=== PATIENT | female | born 1990 | race Caucasian/White ===

== ENCOUNTER 2018-10-04 14:22 | Inpatient (IN) | payer BC ==
[2018-10-04 14:35] VITALS: BMI 107.6
[2018-10-04 14:47] LABS: BASO # 0.02 K/mm3 (0.0-2.0); BASO % 0.2 % (0.0-3.0); LYMPH % 10.4 % (22.0-35.0); MEAN CELL VOLUME 74.1 fl (80.0-105.0); MEAN CORPUSCULAR HEMOGLOBIN 24.7 pg (25.0-35.0); MEAN CORPUSCULAR HGB CONC 33.3 g/dl (31.0-37.0); MEAN PLATELET VOLUME 9.3 fl (7.0-11.0); MONO # 1.3 (0.1-0.6); MONO % 13.7 % (1.0-6.0); RBC 4.86 10^6/uL (3.5-6.1); RED CELL DISTRIBUTION WIDTH 19.6 % (11.5-14.5); WHITE BLOOD COUNT 9.4 10^3/uL (4.5-11.0)
[2018-10-04 15:02] LABS: ALB/GLOB RATIO 1.2 (1.1-1.8); ALBUMIN 4.7 g/dL (3.0-4.8); ALT/SGPT 11 U/L (7-56); GFR NON-AFRICAN AMERICAN > 60
[2018-10-04 15:03] LABS: ACETAMINOPHEN < 10.0 ug/ml (10.0-20.0); AST/SGOT 31 U/L (14-36); CALCIUM 9.3 mg/dL (8.4-10.5); SALICYLATE < 1 mg/dL (2.0-20.0)
--- NOTE | 2018-10-04 15:11 | ED PDOC ---
Arrival/HPI - General Chief Complaint: Substance Abuse Time Seen by Provider: 10/04/18 14:24 - Critical Care Critical Care Minutes: 60 minutes Narrative Critical Care (Text): Patient required my immediate attention upon arrival due to life threatening illness, required frequent reassessment, complex decision making, multiple specialist conversations. - History of Present Illness Narrative History of Present Illness (Text): 27 y/o F c no PMHx BIBEMS with presumed overdose. Family found patient at home, eyes wide open, not responding verbally, tachycardic and called EMS. Patient was found with empty bottles by her (Benadryl, Levceterizine, Montelukast, Augmentin, Prednisone). Patient arrived to ED with altered mental status and during initial evaluation, had approximately 10 sec seizure which resolved on its own and was then given 2mg Ativan. Full HPI/ROS unobtainable due to patient's critical condition and altered mental status. Past Medical History - Infectious Disease Hx of Infectious Diseases: None - Reproductive Menopause: No - Psychiatric Hx Substance Use: No - Anesthesia Hx Anesthesia: No Hx Anesthesia Reactions: No Hx Malignant Hyperthermia: No Family/Social History Family/Social History: No Known Family HX Smoking Status: Never Smoked Hx Alcohol Use: No Hx Substance Use: No Allergies/Home Meds Allergies/Adverse Reactions: Allergies No Known Allergies Allergy (Verified 03/06/16 19:15) Review of Systems - Review of Systems Systems not reviewed;Unavailable: Acuity of Condition Physical Exam - Physical Exam Narrative Physical Exam (Text): gen nonverbal head nc/at eyes jerking movements ent drooling after seizure, no bleeding or tongue bite neck supple chest no deformity cv tachycardic resp cta b/l abd soft back no deformity extremities no deformity skin flushed neuro nonverbal, 10 second seizure, jerking limb movements Vital Signs Temp Pulse Resp BP Pulse Ox 10/04/18 14:57 142 H 18 140/89 98 10/04/18 14:29 97.8 F 185 H 26 H 97 10/04/18 14:27 97.2 F L 181 H 18 142/69 99 Medical Decision Making ED Course and Treatment: EKG Sinus tachy, 182 bpm, QRS 76ms, QTc 452ms FINDINGS: LUNGS: No active pulmonary disease. PLEURA: No significant pleural effusion identified, no pneumothorax apparent. CARDIOVASCULAR: No aortic atherosclerotic calcification present. Normal cardiac size. No pulmonary vascular congestion. OSSEOUS STRUCTURES: No significant abnormalities. VISUALIZED UPPER ABDOMEN: Normal. OTHER FINDINGS: None. IMPRESSION: No active disease. Patient with 10 second seizure, Ativan 2mg administered and 3 L IVF total. Patient's HR improved from 180s to 117. No additional seizures in ED. QRS remained narrow as HR slowed. ICU consulted, accepted to ICU. Dr. Murphy accepts patient to hospitalist service. Discussed entire case with Poison Control who agree with management. They recommend continued benzos as needed for seizure/agitation control and did not recommend physostigmine at this time. Patient maintaining airway, pulse oximetry 100% on room air. - Lab Interpretations Lab Results: AST 31 U/L (14-36) 10/04/18 14:30 ALT 11 U/L (7-56) 10/04/18 14:30 Total Protein 8.8 g/dL (5.8-8.3) H 10/04/18 14:30 Albumin 4.7 g/dL (3.0-4.8) 10/04/18 14:30 Globulin 4.0 gm/dL 10/04/18 14:30 Albumin/Globulin Ratio 1.2 (1.1-1.8) 10/04/18 14:30 - RAD Interpretation Radiology Orders: 10/04/18 14:41 CHEST PORTABLE [RAD] Stat Disposition/Present on Arrival - Present on Arrival Any Indicators Present on Arrival: No History of DVT/PE: No History of Uncontrolled Diabetes: No Urinary Catheter: No History of Decub. Ulcer: No History Surgical Site Infection Following: None - Disposition Have Diagnosis and Disposition been Completed?: Yes Diagnosis: Diphenhydramine overdose, Anticholinergic drug overdose, Seizure Disposition: HOSPITALIZED Disposition Time: 15:30 Patient Plan: Admission, ICU Patient Problems: Current Active Problems Problem Status Onset Anticholinergic drug overdose Acute Diphenhydramine overdose Acute Condition: CRITICAL
[2018-10-04 15:12] LABS: URINE BILIRUBIN SMALL (NEGATIVE); URINE BLOOD NEGATIVE (NEGATIVE); URINE GLUCOSE (UA) NEGATIVE (NEGATIVE); URINE LEUKOCYTE ESTERASE NEGATIVE Leu/uL (NEGATIVE); URINE PROTEIN >=300 mg/dL (<30 mg/dL)
[2018-10-04 15:14] LABS: URINE APPEARANCE CLEAR (CLEAR); URINE COLOR YELLOW (YELLOW)
[2018-10-04 15:15] LABS: HCG,QUALITATIVE URINE NEGATIVE (NEGATIVE)
[2018-10-04 15:23] LABS: BENZODIAZEPINES, UR NEGATIVE (NEGATIVE); PHENCYCLIDINE, UR NEGATIVE (NEGATIVE)
[2018-10-04 15:27] LABS: ARTERIAL BLOOD GAS HCO3 13.5 mmol/L (21-28); ARTERIAL BLOOD GAS O2 SAT 98.4 % (95-98); ARTERIAL BLOOD GAS PCO2 28 mm/Hg (35-45); ARTERIAL BLOOD GAS PH 7.29 (7.35-7.45); ARTERIAL BLOOD GAS TCO2 14.4 mmol.L (22-28)
[2018-10-04 15:28] LABS: URINE BACTERIA FEW /hpf; URINE RBC 0 - 2 /hpf (0-2); URINE WBC 0 - 2 /hpf (0-6)
[2018-10-04 15:31] LABS: BARBITURATES, UR NEGATIVE (NEGATIVE); OPIATES, UR NEGATIVE (NEGATIVE)
--- NOTE | 2018-10-04 15:44 | RAD ---
Date of service: 10/04/2018 HISTORY: benadryl overdose COMPARISON: No prior. TECHNIQUE: 1 view obtained. FINDINGS: LUNGS: No active pulmonary disease. PLEURA: No significant pleural effusion identified, no pneumothorax apparent. CARDIOVASCULAR: No aortic atherosclerotic calcification present. Normal cardiac size. No pulmonary vascular congestion. OSSEOUS STRUCTURES: No significant abnormalities. VISUALIZED UPPER ABDOMEN: Normal. OTHER FINDINGS: None. IMPRESSION: No active disease.
[2018-10-04 15:46] LABS: BLOOD UREA NITROGEN 7 mg/dL (7-21)
[2018-10-04] MEDS ORDERED: Sodium Chloride 0.9% 3,000 ML IV STA (16:01)
--- NOTE | 2018-10-04 16:12 | CP.PCM.CON ---
<Govind Celestin - Last Filed: 10/04/18 17:05> History of Present Illness - History of Present Illness History of Present Illness: ICU consult note for Dr Hawk Mrs Romero is a 27 year old female with no significant PMHx who was found altered at home by her 2/2 to an overdose of multiple medications. stated he found her in her bed non-responsive to verbal or tactile stimuli with her eyes wide open as if she was hallucinating. He found the medication drawer open with empty pill bottles which all previously contained pills (benadryl, Levceterizine, Montelukast, Augmentin, Prednisone). The bottle that contained the most pills was the benadryl. Patient appeared normal 90 mins prior to finding her altered. He stated she had been "going through some stuff lately" but is surprised by her actions as it is out of her character - she has never attempted suicide in the past. In the ED she had a 10 second seizure which resolved on it's own and was given ativan 2mg ivp thereafter. The history was collected by her Jose A, phone: [phone]. PMHx: none PSHx: none Home Meds: none Allergies: NKA SocialHx: never smoked, social alcohol use, no illicits, lives at home with and child FamHx: no fam hx PMD: [place] Review of Systems - Review of Systems Systems not reviewed;Unavailable: Altered Mental Status Past Patient History - Infectious Disease Hx of Infectious Diseases: None - Past Social History Smoking Status: Never Smoked - CARDIAC Hx Cardiac Disorders: No - HEMATOLOGICAL/ONCOLOGICAL Hx Blood Disorders: No - INTEGUMENTARY Hx Dermatological Problems: No - PSYCHIATRIC Hx Substance Use: No - SURGICAL HISTORY Hx Surgeries: No - ANESTHESIA Hx Anesthesia: No Hx Anesthesia Reactions: No Hx Malignant Hyperthermia: No Meds Allergies/Adverse Reactions: Allergies Allergy/AdvReac Type Severity Reaction Status Date / Time No Known Allergies Allergy Verified 03/06/16 19:15 - Medications Medications: Current Medications Sodium Chloride (Sodium Chloride 0.9%) 3,000 mls @ 999 mls/hr IV .Q3H1M STA Stop: 10/04/18 19:01 Physical Exam - Constitutional Appears: In Acute Distress - Head Exam Head Exam: ATRAUMATIC, NORMAL INSPECTION - Eye Exam Eye Exam: PERRL. absent: Conjunctival injection, Periorbital swelling, Scleral icterus Pupil Exam: NORMAL ACCOMODATION - ENT Exam ENT Exam: Mucous Membranes Dry - Neck Exam Neck exam: Negative for: Lymphadenopathy - Respiratory Exam Respiratory Exam: Decreased Breath Sounds. absent: Rales, Rhonchi, Wheezes, Stridor - Cardiovascular Exam Cardiovascular Exam: Tachycardia, REGULAR RHYTHM, +S1, +S2. absent: JVD, Systolic Murmur - GI/Abdominal Exam GI & Abdominal Exam: Hypoactive Bowel Sounds, Soft. absent: Distended, Firm - Extremities Exam Extremities exam: Positive for: normal capillary refill, normal inspection, pedal pulses present. Negative for: pedal edema - Neurological Exam Neurological exam: Altered - Skin Skin Exam: Dry, Intact, Normal Color, Warm Results - Vital Signs Recent Vital Signs: Last Vital Signs Temp 99 F 10/04/18 15:11 Pulse 118 H 10/04/18 16:00 Resp 22 10/04/18 16:00 BP 139/74 10/04/18 16:00 Pulse Ox 99 10/04/18 16:00 - Labs Result Diagrams: 10/04/18 14:30 10/04/18 14:30 Labs: Laboratory Results - last 24 hr 10/04/18 10/04/18 10/04/18 14:30 14:30 14:30 WBC 9.4 RBC 4.86 Hgb 12.0 Hct 36.0 MCV 74.1 L MCH 24.7 L MCHC 33.3 RDW 19.6 H Plt Count 292 MPV 9.3 Neut % (Auto) 75.7 H Lymph % (Auto) 10.4 L [place] % (Auto) 13.7 H Eos % (Auto) 0.0 L Baso % (Auto) 0.2 Lymph # (Auto) 1.0 L Randolph # (Auto) 1.3 H Eos # (Auto) 0.0 Baso # (Auto) 0.02 Absolute Neuts (auto) 7.11 H pCO2 pO2 HCO3 ABG pH ABG Total CO2 ABG O2 Saturation ABG Base Excess ABG Potassium Glucose Lactate FiO2 Crit Value Called To Crit Value Called By Blood Gas Notified Time Sodium 144 Potassium 4.0 Chloride 108 H Carbon Dioxide 18 L Anion Gap 23 H BUN 7 Creatinine 0.5 L Est GFR ( Amer) > 60 Est GFR (Non-Af Amer) > 60 Random Glucose 112 H Calcium 9.3 Magnesium 1.8 Total Bilirubin 1.0 AST 31 ALT 11 Alkaline Phosphatase 72 Total Creatine Kinase 76 Total Protein 8.8 H Albumin 4.7 Globulin 4.0 Albumin/Globulin Ratio 1.2 Arterial Blood Potassium Urine Color Urine Appearance Urine pH Ur Specific [place] Urine Protein Urine Glucose (UA) Urine Ketones Urine Blood Urine Nitrate Urine Bilirubin Urine Urobilinogen Ur Leukocyte Esterase Urine RBC Urine WBC Ur Epithelial Cells Urine Bacteria Urine Other Urine HCG, Qual Salicylates < 1 L Urine Opiates Screen Urine Methadone Screen Acetaminophen < 10.0 L Ur Barbiturates Screen Ur Phencyclidine Scrn Ur Amphetamines Screen U Benzodiazepines Scrn U Oth Cocaine Metabols U Cannabinoids Screen Alcohol, Quantitative 10/04/18 10/04/18 10/04/18 14:30 14:45 14:45 WBC RBC Hgb Hct MCV MCH MCHC RDW Plt Count MPV Neut % (Auto) Lymph % (Auto) [place] % (Auto) Eos % (Auto) Baso % (Auto) Lymph # (Auto) Randolph # (Auto) Eos # (Auto) Baso # (Auto) Absolute Neuts (auto) pCO2 pO2 HCO3 ABG pH ABG Total CO2 ABG O2 Saturation ABG Base Excess ABG Potassium Glucose Lactate FiO2 Crit Value Called To Crit Value Called By Blood Gas Notified Time Sodium Potassium Chloride Carbon Dioxide Anion Gap BUN Creatinine Est GFR ( Amer) Est GFR (Non-Af Amer) Random Glucose Calcium Magnesium Total Bilirubin AST ALT Alkaline Phosphatase Total Creatine Kinase Total Protein Albumin Globulin Albumin/Globulin Ratio Arterial Blood Potassium Urine Color Yellow Urine Appearance Clear Urine pH 7.0 Ur Specific [place] >= 1.030 Urine Protein >=300 H Urine Glucose (UA) Negative Urine Ketones 15 H Urine Blood Negative Urine Nitrate Negative Urine Bilirubin Small H Urine Urobilinogen 4.0 H Ur Leukocyte Esterase Negative Urine RBC 0 - 2 Urine WBC 0 - 2 Ur Epithelial Cells 1 - 3 Urine Bacteria Few Urine Other Mucus Urine HCG, Qual Negative Salicylates Urine Opiates Screen Negative Urine Methadone Screen Negative Acetaminophen Ur Barbiturates Screen Negative Ur Phencyclidine Scrn Negative Ur Amphetamines Screen Negative U Benzodiazepines Scrn Negative U Oth Cocaine Metabols Negative U Cannabinoids Screen Negative Alcohol, Quantitative < 10 10/04/18 15:05 WBC RBC Hgb Hct MCV MCH MCHC RDW Plt Count MPV Neut % (Auto) Lymph % (Auto) [place] % (Auto) Eos % (Auto) Baso % (Auto) Lymph # (Auto) [place] # (Auto) Eos # (Auto) Baso # (Auto) Absolute Neuts (auto) pCO2 28 L pO2 96.0 HCO3 13.5 L ABG pH 7.29 L ABG Total CO2 14.4 L ABG O2 Saturation 98.4 H ABG Base Excess -11.6 L ABG Potassium 2.7 L Glucose 101 Lactate 6.1 H* FiO2 21.0 Crit Value Called To Tasha awad Crit Value Called By Meaghan hernandez Blood Gas Notified Time 1527 Sodium 141.0 Potassium Chloride 113.0 H Carbon Dioxide Anion Gap BUN Creatinine Est GFR ( Amer) Est GFR (Non-Af Amer) Random Glucose Calcium Magnesium Total Bilirubin AST ALT Alkaline Phosphatase Total Creatine Kinase Total Protein Albumin Globulin Albumin/Globulin Ratio Arterial Blood Potassium 2.7 L Urine Color Urine Appearance Urine pH Ur Specific [place] Urine Protein Urine Glucose (UA) Urine Ketones Urine Blood Urine Nitrate Urine Bilirubin Urine Urobilinogen Ur Leukocyte Esterase Urine RBC Urine WBC Ur Epithelial Cells Urine Bacteria Urine Other Urine HCG, Qual Salicylates Urine Opiates Screen Urine Methadone Screen Acetaminophen Ur Barbiturates Screen Ur Phencyclidine Scrn Ur Amphetamines Screen U Benzodiazepines Scrn U Oth Cocaine Metabols U Cannabinoids Screen Alcohol, Quantitative Assessment & Plan - Assessment and Plan (Free Text) Plan: Mrs Romero is a 27 year old female with no significant PMHx who was found altered at home by her 2/2 to an overdose of multiple medications (benadryl, Levceterizine, Montelukast, Augmentin, Prednisone). The most # of pills taken were benadryl. Renal: #High Anion-Gap Metabolic Acidosis, #Lactic Acidosis - initial anion gap: 18, elevated 2/2 high lactate - initial lactate 6.1, trend lactate - aggressive fluid hydration with 3L bolus NS - 1/2NS with 75meq bicarb @ 150 cc/hr - trend CPK Cardiovascular: #Sinus Tachycardia, improved - tachycardia 2/2 anticholinergic effects of benadryl - will monitor for wide complex tachycardia - BP remains normal at this time Neuro: #Toxic Metabolic Encephalopathy 2/2 Overdose, #Seizure Activity - neurology consulted, Dr Goode - f/u CT head - ativan 2mg q2h prn for seizure activity - neurochecks q2h Respiratory: #Tachypnea - 2/2 respiratory compensation - head of bed to 30 degrees, aspiration precautions - currently saturating well on NC Psychiatry: #Suicide Attempt - per , no psych hx or hx of suicide attempt - UDS negative - poison control contacted by ED, recommended supportive care and recommended against physiostigmine at this time - 1:1 sitter - psychiatry consulted, Dr Richard ID: no active issues PPx: no GI or DVT prophylaxis indicated at this time Seen and discussed with Dr Hawk <Urbano Hawk - Last Filed: 10/04/18 17:45> Meds - Medications Medications: Current Medications Sodium Chloride (Sodium Chloride 0.9%) 3,000 mls @ 999 mls/hr IV .Q3H1M STA Stop: 10/04/18 19:01 Last Admin: 10/04/18 14:30 Dose: 999 mls/hr Sodium Bicarbonate 75 meq/ (Sodium Chloride) 1,075 mls @ 150 mls/hr IV .Q7H10M TITI Lorazepam (Ativan) 2 mg IVP Q2H PRN; Protocol PRN Reason: Seizure activity Pantoprazole Sodium (Protonix Inj) 40 mg IVP DAILY TITI Results - Vital Signs Recent Vital Signs: Last Vital Signs Temp 99 F 10/04/18 15:11 Pulse 118 H 10/04/18 16:15 Resp 16 10/04/18 16:34 BP 134/88 10/04/18 16:15 Pulse Ox 99 10/04/18 16:15 - Labs Result Diagrams: 10/04/18 14:30 10/04/18 14:30 Labs: Laboratory Results - last 24 hr 10/04/18 10/04/18 10/04/18 14:30 14:30 14:30 WBC 9.4 RBC 4.86 Hgb 12.0 Hct 36.0 MCV 74.1 L MCH 24.7 L MCHC 33.3 RDW 19.6 H Plt Count 292 MPV 9.3 Neut % (Auto) 75.7 H Lymph % (Auto) 10.4 L [place] % (Auto) 13.7 H Eos % (Auto) 0.0 L Baso % (Auto) 0.2 Lymph # (Auto) 1.0 L [place] # (Auto) 1.3 H Eos # (Auto) 0.0 Baso # (Auto) 0.02 Absolute Neuts (auto) 7.11 H pCO2 pO2 HCO3 ABG pH ABG Total CO2 ABG O2 Saturation ABG Base Excess ABG Potassium Glucose Lactate FiO2 Crit Value Called To Crit Value Called By Blood Gas Notified Time Sodium 144 Potassium 4.0 Chloride 108 H Carbon Dioxide 18 L Anion Gap 23 H BUN 7 Creatinine 0.5 L Est GFR ( Amer) > 60 Est GFR (Non-Af Amer) > 60 Random Glucose 112 H Calcium 9.3 Magnesium 1.8 Total Bilirubin 1.0 AST 31 ALT 11 Alkaline Phosphatase 72 Total Creatine Kinase 76 Total Protein 8.8 H Albumin 4.7 Globulin 4.0 Albumin/Globulin Ratio 1.2 Arterial Blood Potassium Urine Color Urine Appearance Urine pH Ur Specific [place] Urine Protein Urine Glucose (UA) Urine Ketones Urine Blood Urine Nitrate Urine Bilirubin Urine Urobilinogen Ur Leukocyte Esterase Urine RBC Urine WBC Ur Epithelial Cells Urine Bacteria Urine Other Urine HCG, Qual Salicylates < 1 L Urine Opiates Screen Urine Methadone Screen Acetaminophen < 10.0 L Ur Barbiturates Screen Ur Phencyclidine Scrn Ur Amphetamines Screen U Benzodiazepines Scrn U Oth Cocaine Metabols U Cannabinoids Screen Alcohol, Quantitative 10/04/18 10/04/18 10/04/18 14:30 14:45 14:45 WBC RBC Hgb Hct MCV MCH MCHC RDW Plt Count MPV Neut % (Auto) Lymph % (Auto) [place] % (Auto) Eos % (Auto) Baso % (Auto) Lymph # (Auto) [place] # (Auto) Eos # (Auto) Baso # (Auto) Absolute Neuts (auto) pCO2 pO2 HCO3 ABG pH ABG Total CO2 ABG O2 Saturation ABG Base Excess ABG Potassium Glucose Lactate FiO2 Crit Value Called To Crit Value Called By Blood Gas Notified Time Sodium Potassium Chloride Carbon Dioxide Anion Gap BUN Creatinine Est GFR ( Amer) Est GFR (Non-Af Amer) Random Glucose Calcium Magnesium Total Bilirubin AST ALT Alkaline Phosphatase Total Creatine Kinase Total Protein Albumin Globulin Albumin/Globulin Ratio Arterial Blood Potassium Urine Color Yellow Urine Appearance Clear Urine pH 7.0 Ur Specific [place] >= 1.030 Urine Protein >=300 H Urine Glucose (UA) Negative Urine Ketones 15 H Urine Blood Negative Urine Nitrate Negative Urine Bilirubin Small H Urine Urobilinogen 4.0 H Ur Leukocyte Esterase Negative Urine RBC 0 - 2 Urine WBC 0 - 2 Ur Epithelial Cells 1 - 3 Urine Bacteria Few Urine Other Mucus Urine HCG, Qual Negative Salicylates Urine Opiates Screen Negative Urine Methadone Screen Negative Acetaminophen Ur Barbiturates Screen Negative Ur Phencyclidine Scrn Negative Ur Amphetamines Screen Negative U Benzodiazepines Scrn Negative U Oth Cocaine Metabols Negative U Cannabinoids Screen Negative Alcohol, Quantitative < 10 10/04/18 15:05 WBC RBC Hgb Hct MCV MCH MCHC RDW Plt Count MPV Neut % (Auto) Lymph % (Auto) [place] % (Auto) Eos % (Auto) Baso % (Auto) Lymph # (Auto) [place] # (Auto) Eos # (Auto) Baso # (Auto) Absolute Neuts (auto) pCO2 28 L pO2 96.0 HCO3 13.5 L ABG pH 7.29 L ABG Total CO2 14.4 L ABG O2 Saturation 98.4 H ABG Base Excess -11.6 L ABG Potassium 2.7 L Glucose 101 Lactate 6.1 H* FiO2 21.0 Crit Value Called To Tasha awad Crit Value Called By Meaghan hernandez Blood Gas Notified Time 1527 Sodium 141.0 Potassium Chloride 113.0 H Carbon Dioxide Anion Gap BUN Creatinine Est GFR ( Amer) Est GFR (Non-Af Amer) Random Glucose Calcium Magnesium Total Bilirubin AST ALT Alkaline Phosphatase Total Creatine Kinase Total Protein Albumin Globulin Albumin/Globulin Ratio Arterial Blood Potassium 2.7 L Urine Color Urine Appearance Urine pH Ur Specific [place] Urine Protein Urine Glucose (UA) Urine Ketones Urine Blood Urine Nitrate Urine Bilirubin Urine Urobilinogen Ur Leukocyte Esterase Urine RBC Urine WBC Ur Epithelial Cells Urine Bacteria Urine Other Urine HCG, Qual Salicylates Urine Opiates Screen Urine Methadone Screen Acetaminophen Ur Barbiturates Screen Ur Phencyclidine Scrn Ur Amphetamines Screen U Benzodiazepines Scrn U Oth Cocaine Metabols U Cannabinoids Screen Alcohol, Quantitative Assessment & Plan - Assessment and Plan (Free Text) Plan: I saw and examined the patients on rounds with the resident, agree with note with following additions/exceptions: Patient is 27yo female with PMHx of recent depression, unclear exacerbating psychosocial factors at home, was found down on her bed, altered by her , with empty pill bottles of benadryl, Levceterizine, Montelukast, Augmentin, Prednisone, unknown dosages or tablet amount. Jose A/HCP, reports that he last saw his at 11AM, and when he returned around 1pm, he found her minimally responsive. reports no prior overdoses. Pt was initally tachycardic ST 180s, given 3L NS bolus, and had witnessed 10 second seziure, given Ativan IV CTH negative On exam, afebrile, HD stable, comfortable opens eyes, does not follow commands, protecting airway, pulse ox on RA 98% EKG with normal QTc Poison control contacted, recs appreciated, will follow Tylenol, ASA levels negative, LFTs wnl, Cr wnl Multidrug overdose Depression Metabolic acidosis Dehydration Tachycardia Seizure DPH overdose Recommend: - cont with supp o2, duonebs PRN, monitor resp status closely - Panculture, UCx, BCx, Procal - Obtain ECHO - IVF, 1/2NS with 75meq NaBicarb - I/Os - monitor LFTs, Cr, Q6hr BMP - VEEG - Neuro eval - Psych Eval - BZD PRN - follow up with poison control - NPO - 1:1 obs - GI ppx - DVT ppx - Monitor in MICU Critical care time 40 minutes
--- NOTE | 2018-10-04 16:58 | CP.PCM.HP ---
<Raphael Krishnan - Last Filed: 10/04/18 17:14> History of Present Illness - History of Present Illness History of Present Illness: Raphael Krishnan, PGY-1, Internal Medicine History and Physical for Dr. Hinkle 27 year old female with no relevant past medical history presents status post multidrug overdose. At bedside, patient was not verbally responsive. provided much of the history. He reported that his had been undergoing personal and professional hardships but did not want to elaborate on these hardships. Today, and son were going to [employer], but did not want to go. and son left at 11:30 AM with patient healthy and AAOx3 and return at 13:30 to see patient on bed with eyes wide open, not responding verbally, and tachycardia and called EMS. Initially, family assumed, patient was having stroke or cardiac trouble. However, son found multiple empty bottles in medical cabinet (benadryl, levocetirizine 5 mg, montelukast 10 mg, augmentin 500 mg, prednisone 10 mg). EMS was called and patient arrived at emergency department with 10 second seizure which self-resolved and was then given 2 mg of ativan. 12-point ROS was unattainable due to patient's current mental status. ED called poison control who recommended benzodiazepines as necessary. Physi ostigmine not recommended at this time. PMH: unremarkable PSH: denies FMHx: non-contributary SHx: social alcohol, denies tobacco, recreational drugs Allergies: NKDA PMD: Dr. Sawant Ins: BCBS [place] of [place] Pharm: none Present on Admission - Present on Admission Any Indicators Present on Admission: No Review of Systems - Review of Systems Systems not reviewed;Unavailable: Intoxicated Past Patient History - Infectious Disease Hx of Infectious Diseases: None - Past Social History Smoking Status: Never Smoked - CARDIAC Hx Cardiac Disorders: No - PULMONARY Hx Respiratory Disorders: No - NEUROLOGICAL Hx Neurological Disorder: No - HEENT Hx HEENT Problems: No - HEMATOLOGICAL/ONCOLOGICAL Hx Blood Disorders: No - INTEGUMENTARY Hx Dermatological Problems: No - MUSCULOSKELETAL/RHEUMATOLOGICAL Hx Falls: No - PSYCHIATRIC Hx Substance Use: No - SURGICAL HISTORY Hx Surgeries: No - ANESTHESIA Hx Anesthesia: No Hx Anesthesia Reactions: No Hx Malignant Hyperthermia: No Meds Allergies/Adverse Reactions: Allergies Allergy/AdvReac Type Severity Reaction Status Date / Time No Known Allergies Allergy Verified 03/06/16 19:15 Physical Exam - Constitutional Appears: In Acute Distress, Agitated, Confused - Head Exam Head Exam: ATRAUMATIC, NORMAL INSPECTION, NORMOCEPHALIC - Eye Exam Eye Exam: EOMI Pupil Exam: Mydriatic, NORMAL ACCOMODATION - ENT Exam ENT Exam: Mucous Membranes Moist - Neck Exam Neck exam: Positive for: Normal Inspection - Respiratory Exam Respiratory Exam: Clear to Auscultation Bilateral, NORMAL BREATHING PATTERN - Cardiovascular Exam Cardiovascular Exam: Tachycardia, REGULAR RHYTHM, +S1, +S2. absent: Clicks, Gallop, Rubs - GI/Abdominal Exam GI & Abdominal Exam: Hypoactive Bowel Sounds, Soft. absent: Distended, Firm, Guarding, Tenderness - Extremities Exam Extremities exam: Positive for: full ROM, normal inspection. Negative for: pedal edema - Neurological Exam Neurological exam: Altered Additional comments: very limited due to mental status - Expanded Neurological Exam Expanded Coma Scale Eye Opening: SPONTANEOUS Coma Scale Motor Response: Localizes to Pain Coma Scale Verbal: None Coma Scale Total: 10 - Skin Skin Exam: Dry, Intact, Normal Color Results - Vital Signs Recent Vital Signs: Last Vital Signs Temp 99 F 10/04/18 15:11 Pulse 118 H 10/04/18 16:15 Resp 16 10/04/18 16:34 BP 134/88 10/04/18 16:15 Pulse Ox 99 10/04/18 16:15 - Labs Result Diagrams: 10/04/18 14:30 10/04/18 14:30 Labs: Laboratory Results - last 24 hr 10/04/18 10/04/18 10/04/18 14:30 14:30 14:30 WBC 9.4 RBC 4.86 Hgb 12.0 Hct 36.0 MCV 74.1 L MCH 24.7 L MCHC 33.3 RDW 19.6 H Plt Count 292 MPV 9.3 Neut % (Auto) 75.7 H Lymph % (Auto) 10.4 L [place] % (Auto) 13.7 H Eos % (Auto) 0.0 L Baso % (Auto) 0.2 Lymph # (Auto) 1.0 L [place] # (Auto) 1.3 H Eos # (Auto) 0.0 Baso # (Auto) 0.02 Absolute Neuts (auto) 7.11 H pCO2 pO2 HCO3 ABG pH ABG Total CO2 ABG O2 Saturation ABG Base Excess ABG Potassium Glucose Lactate FiO2 Crit Value Called To Crit Value Called By Blood Gas Notified Time Sodium 144 Potassium 4.0 Chloride 108 H Carbon Dioxide 18 L Anion Gap 23 H BUN 7 Creatinine 0.5 L Est GFR ( Amer) > 60 Est GFR (Non-Af Amer) > 60 Random Glucose 112 H Calcium 9.3 Magnesium 1.8 Total Bilirubin 1.0 AST 31 ALT 11 Alkaline Phosphatase 72 Total Creatine Kinase 76 Total Protein 8.8 H Albumin 4.7 Globulin 4.0 Albumin/Globulin Ratio 1.2 Arterial Blood Potassium Urine Color Urine Appearance Urine pH Ur Specific [place] Urine Protein Urine Glucose (UA) Urine Ketones Urine Blood Urine Nitrate Urine Bilirubin Urine Urobilinogen Ur Leukocyte Esterase Urine RBC Urine WBC Ur Epithelial Cells Urine Bacteria Urine Other Urine HCG, Qual Salicylates < 1 L Urine Opiates Screen Urine Methadone Screen Acetaminophen < 10.0 L Ur Barbiturates Screen Ur Phencyclidine Scrn Ur Amphetamines Screen U Benzodiazepines Scrn U Oth Cocaine Metabols U Cannabinoids Screen Alcohol, Quantitative 10/04/18 10/04/18 10/04/18 14:30 14:45 14:45 WBC RBC Hgb Hct MCV MCH MCHC RDW Plt Count MPV Neut % (Auto) Lymph % (Auto) [place] % (Auto) Eos % (Auto) Baso % (Auto) Lymph # (Auto) [place] # (Auto) Eos # (Auto) Baso # (Auto) Absolute Neuts (auto) pCO2 pO2 HCO3 ABG pH ABG Total CO2 ABG O2 Saturation ABG Base Excess ABG Potassium Glucose Lactate FiO2 Crit Value Called To Crit Value Called By Blood Gas Notified Time Sodium Potassium Chloride Carbon Dioxide Anion Gap BUN Creatinine Est GFR ( Amer) Est GFR (Non-Af Amer) Random Glucose Calcium Magnesium Total Bilirubin AST ALT Alkaline Phosphatase Total Creatine Kinase Total Protein Albumin Globulin Albumin/Globulin Ratio Arterial Blood Potassium Urine Color Yellow Urine Appearance Clear Urine pH 7.0 Ur Specific [place] >= 1.030 Urine Protein >=300 H Urine Glucose (UA) Negative Urine Ketones 15 H Urine Blood Negative Urine Nitrate Negative Urine Bilirubin Small H Urine Urobilinogen 4.0 H Ur Leukocyte Esterase Negative Urine RBC 0 - 2 Urine WBC 0 - 2 Ur Epithelial Cells 1 - 3 Urine Bacteria Few Urine Other Mucus Urine HCG, Qual Negative Salicylates Urine Opiates Screen Negative Urine Methadone Screen Negative Acetaminophen Ur Barbiturates Screen Negative Ur Phencyclidine Scrn Negative Ur Amphetamines Screen Negative U Benzodiazepines Scrn Negative U Oth Cocaine Metabols Negative U Cannabinoids Screen Negative Alcohol, Quantitative < 10 10/04/18 15:05 WBC RBC Hgb Hct MCV MCH MCHC RDW Plt Count MPV Neut % (Auto) Lymph % (Auto) [place] % (Auto) Eos % (Auto) Baso % (Auto) Lymph # (Auto) [place] # (Auto) Eos # (Auto) Baso # (Auto) Absolute Neuts (auto) pCO2 28 L pO2 96.0 HCO3 13.5 L ABG pH 7.29 L ABG Total CO2 14.4 L ABG O2 Saturation 98.4 H ABG Base Excess -11.6 L ABG Potassium 2.7 L Glucose 101 Lactate 6.1 H* FiO2 21.0 Crit Value Called To Tasha awad Crit Value Called By Meaghan hernandez Blood Gas Notified Time 1527 Sodium 141.0 Potassium Chloride 113.0 H Carbon Dioxide Anion Gap BUN Creatinine Est GFR ( Amer) Est GFR (Non-Af Amer) Random Glucose Calcium Magnesium Total Bilirubin AST ALT Alkaline Phosphatase Total Creatine Kinase Total Protein Albumin Globulin Albumin/Globulin Ratio Arterial Blood Potassium 2.7 L Urine Color Urine Appearance Urine pH Ur Specific [place] Urine Protein Urine Glucose (UA) Urine Ketones Urine Blood Urine Nitrate Urine Bilirubin Urine Urobilinogen Ur Leukocyte Esterase Urine RBC Urine WBC Ur Epithelial Cells Urine Bacteria Urine Other Urine HCG, Qual Salicylates Urine Opiates Screen Urine Methadone Screen Acetaminophen Ur Barbiturates Screen Ur Phencyclidine Scrn Ur Amphetamines Screen U Benzodiazepines Scrn U Oth Cocaine Metabols U Cannabinoids Screen Alcohol, Quantitative Assessment & Plan - Assessment and Plan (Free Text) Assessment: 27 year old female with no relevant past medical history presented status post multidrug overdose Plan: Polypharmacy -Patient likely consumed benadryl, prednisone 10 mg, montelukast 10 mg, augmentin 500 mg, levocetirizine 5 mg -Head CT: no acute intracranial pathology -UDS: negative -Tylenol: negative -Alcohol: negative -CK: unremarkable -Status post 3 L of IV fluids -Started 1/2 NS with 3 Amp of bicarb -Start ativan 2 mg Q2 PRN for seizures -Will obtain echocardiogram due to benadryl overdose -Will check CMP Q4 for electrolyte abnormalities and check EKG in the AM for reevaluation of EKG findings -Elevate head of bed -Aspiration precautions -Neurocheck PRN -1:1 sitter Status post seizure -Likely 2/2 to polypharmacy -Follow up EEG -Head CT: no acute intracranial pathology -CK unremarkable, thus unlikely rhabdomyolysis status post seizure -Lactate elevated at 6 and bicarbonate reduced at 18 likely 2/2 to hypoxia during seizure -Follow up repeat ABG at 19:00 -Start ativan 2 mg Q2 PRN for seizures -Elevate head of bed -Aspiration precautions -Neurocheck PRN -1:1 sitter -Dr. Goode, Neurology, consulted for further recommendations. Depression -Patient likely attempted suicide -Dr. Richard, Psychiatry, consulted for further recommendations. GI prophylaxis: protonix DVT prophylaxis: SCD Patient plan discussed with Dr. Hinkle - Date & Time Date: 10/04/18 Time: 17:01 <Kasandra Hinkle - Last Filed: 10/05/18 14:11> Results - Vital Signs Recent Vital Signs: Last Vital Signs Temp 98.4 F 10/04/18 16:29 Pulse 118 H 10/05/18 03:53 Resp 16 10/04/18 16:34 BP 134/88 10/04/18 16:15 Pulse Ox 99 10/04/18 16:15 - Labs Result Diagrams: 10/05/18 05:20 10/05/18 05:20 Labs: Laboratory Results - last 24 hr 10/04/18 10/04/18 10/04/18 14:30 14:30 14:30 WBC 9.4 RBC 4.86 Hgb 12.0 Hct 36.0 MCV 74.1 L MCH 24.7 L MCHC 33.3 RDW 19.6 H Plt Count 292 MPV 9.3 Neut % (Auto) 75.7 H Lymph % (Auto) 10.4 L [place] % (Auto) 13.7 H Eos % (Auto) 0.0 L Baso % (Auto) 0.2 Lymph # (Auto) 1.0 L [place] # (Auto) 1.3 H Eos # (Auto) 0.0 Baso # (Auto) 0.02 Absolute Neuts (auto) 7.11 H pCO2 pO2 HCO3 ABG pH ABG Total CO2 ABG O2 Saturation ABG Base Excess ABG Potassium VBG pH VBG pCO2 VBG HCO3 VBG Total CO2 VBG O2 Sat (Calc) VBG Base Excess VBG Potassium Glucose Lactate FiO2 Crit Value Called To Crit Value Called By Blood Gas Notified Time Sodium 144 Potassium 4.0 Chloride 108 H Carbon Dioxide 18 L Anion Gap 23 H BUN 7 Creatinine 0.5 L Est GFR ( Amer) > 60 Est GFR (Non-Af Amer) > 60 POC Glucose (mg/dL) Random Glucose 112 H Calcium 9.3 Phosphorus 3.2 Magnesium 1.8 Iron TIBC % Saturation Ferritin Total Bilirubin 1.0 AST 31 ALT 11 Alkaline Phosphatase 72 Total Creatine Kinase 76 Total Protein 8.8 H Albumin 4.7 Globulin 4.0 Albumin/Globulin Ratio 1.2 Arterial Blood Potassium Venous Blood Potassium Urine Color Urine Appearance Urine pH Ur Specific [place] Urine Protein Urine Glucose (UA) Urine Ketones Urine Blood Urine Nitrate Urine Bilirubin Urine Urobilinogen Ur Leukocyte Esterase Urine RBC Urine WBC Ur Epithelial Cells Urine Bacteria Urine Other Urine HCG, Qual Salicylates < 1 L Urine Opiates Screen Urine Methadone Screen Acetaminophen < 10.0 L Ur Barbiturates Screen Ur Phencyclidine Scrn Ur Amphetamines Screen U Benzodiazepines Scrn U Oth Cocaine Metabols U Cannabinoids Screen Alcohol, Quantitative 10/04/18 10/04/18 10/04/18 14:30 14:45 14:45 WBC RBC Hgb Hct MCV MCH MCHC RDW Plt Count MPV Neut % (Auto) Lymph % (Auto) [place] % (Auto) Eos % (Auto) Baso % (Auto) Lymph # (Auto) [place] # (Auto) Eos # (Auto) Baso # (Auto) Absolute Neuts (auto) pCO2 pO2 HCO3 ABG pH ABG Total CO2 ABG O2 Saturation ABG Base Excess ABG Potassium VBG pH VBG pCO2 VBG HCO3 VBG Total CO2 VBG O2 Sat (Calc) VBG Base Excess VBG Potassium Glucose Lactate FiO2 Crit Value Called To Crit Value Called By Blood Gas Notified Time Sodium Potassium Chloride Carbon Dioxide Anion Gap BUN Creatinine Est GFR ( Amer) Est GFR (Non-Af Amer) POC Glucose (mg/dL) Random Glucose Calcium Phosphorus Magnesium Iron TIBC % Saturation Ferritin Total Bilirubin AST ALT Alkaline Phosphatase Total Creatine Kinase Total Protein Albumin Globulin Albumin/Globulin Ratio Arterial Blood Potassium Venous Blood Potassium Urine Color Yellow Urine Appearance Clear Urine pH 7.0 Ur Specific [place] >= 1.030 Urine Protein >=300 H Urine Glucose (UA) Negative Urine Ketones 15 H Urine Blood Negative Urine Nitrate Negative Urine Bilirubin Small H Urine Urobilinogen 4.0 H Ur Leukocyte Esterase Negative Urine RBC 0 - 2 Urine WBC 0 - 2 Ur Epithelial Cells 1 - 3 Urine Bacteria Few Urine Other Mucus Urine HCG, Qual Negative Salicylates Urine Opiates Screen Negative Urine Methadone Screen Negative Acetaminophen Ur Barbiturates Screen Negative Ur Phencyclidine Scrn Negative Ur Amphetamines Screen Negative U Benzodiazepines Scrn Negative U Oth Cocaine Metabols Negative U Cannabinoids Screen Negative Alcohol, Quantitative < 10 10/04/18 10/04/18 10/04/18 15:05 15:26 19:55 WBC RBC Hgb Hct MCV MCH MCHC RDW Plt Count MPV Neut % (Auto) Lymph % (Auto) [place] % (Auto) Eos % (Auto) Baso % (Auto) Lymph # (Auto) [place] # (Auto) Eos # (Auto) Baso # (Auto) Absolute Neuts (auto) pCO2 28 L pO2 96.0 HCO3 13.5 L ABG pH 7.29 L ABG Total CO2 14.4 L ABG O2 Saturation 98.4 H ABG Base Excess -11.6 L ABG Potassium 2.7 L VBG pH VBG pCO2 VBG HCO3 VBG Total CO2 VBG O2 Sat (Calc) VBG Base Excess VBG Potassium Glucose 101 Lactate 6.1 H* FiO2 21.0 Crit Value Called To Tasha awad Crit Value Called By Meaghan hernandez Blood Gas Notified Time 1527 Sodium 141.0 144 Potassium 3.1 L Chloride 113.0 H 110 H Carbon Dioxide 22 Anion Gap 15 BUN 4 L Creatinine 0.5 L Est GFR ( Amer) > 60 Est GFR (Non-Af Amer) > 60 POC Glucose (mg/dL) 108 Random Glucose 105 Calcium 7.7 L Phosphorus 3.2 Magnesium 1.7 Iron TIBC % Saturation Ferritin Total Bilirubin 0.8 AST 21 ALT 20 Alkaline Phosphatase 67 Total Creatine Kinase 99 Total Protein 7.4 Albumin 4.0 Globulin 3.5 Albumin/Globulin Ratio 1.1 Arterial Blood Potassium 2.7 L Venous Blood Potassium Urine Color Urine Appearance Urine pH Ur Specific [place] Urine Protein Urine Glucose (UA) Urine Ketones Urine Blood Urine Nitrate Urine Bilirubin Urine Urobilinogen Ur Leukocyte Esterase Urine RBC Urine WBC Ur Epithelial Cells Urine Bacteria Urine Other Urine HCG, Qual Salicylates Urine Opiates Screen Urine Methadone Screen Acetaminophen Ur Barbiturates Screen Ur Phencyclidine Scrn Ur Amphetamines Screen U Benzodiazepines Scrn U Oth Cocaine Metabols U Cannabinoids Screen Alcohol, Quantitative 10/04/18 10/05/18 10/05/18 19:55 01:16 05:20 WBC 8.0 RBC 4.22 Hgb 10.0 L D Hct 31.6 L MCV 74.9 L MCH 23.7 L MCHC 31.6 RDW 20.2 H Plt Count 261 MPV 9.4 Neut % (Auto) 61.4 Lymph % (Auto) 30.0 [place] % (Auto) 8.0 H Eos % (Auto) 0.4 L Baso % (Auto) 0.2 Lymph # (Auto) 2.4 [place] # (Auto) 0.6 Eos # (Auto) 0.0 Baso # (Auto) 0.02 Absolute Neuts (auto) 4.93 pCO2 pO2 48 HCO3 ABG pH ABG Total CO2 ABG O2 Saturation ABG Base Excess ABG Potassium VBG pH 7.41 VBG pCO2 39.0 L VBG HCO3 24.7 VBG Total CO2 25.9 VBG O2 Sat (Calc) 83.7 H VBG Base Excess 0.1 VBG Potassium 3.0 L Glucose 107 H Lactate 1.7 FiO2 21.0 Crit Value Called To Crit Value Called By Blood Gas Notified Time Sodium 143.0 141 Potassium 2.8 L* Chloride 111.0 H 106 Carbon Dioxide 25 Anion Gap 13 BUN 3 L Creatinine 0.5 L Est GFR ( Amer) > 60 Est GFR (Non-Af Amer) > 60 POC Glucose (mg/dL) Random Glucose 82 Calcium 8.7 Phosphorus 3.8 Magnesium 1.7 Iron TIBC % Saturation Ferritin Total Bilirubin 0.8 AST 23 ALT 17 Alkaline Phosphatase 65 Total Creatine Kinase 129 Total Protein 7.1 Albumin 3.7 Globulin 3.4 Albumin/Globulin Ratio 1.1 Arterial Blood Potassium Venous Blood Potassium 3.0 L Urine Color Urine Appearance Urine pH Ur Specific [place] Urine Protein Urine Glucose (UA) Urine Ketones Urine Blood Urine Nitrate Urine Bilirubin Urine Urobilinogen Ur Leukocyte Esterase Urine RBC Urine WBC Ur Epithelial Cells Urine Bacteria Urine Other Urine HCG, Qual Salicylates Urine Opiates Screen Urine Methadone Screen Acetaminophen Ur Barbiturates Screen Ur Phencyclidine Scrn Ur Amphetamines Screen U Benzodiazepines Scrn U Oth Cocaine Metabols U Cannabinoids Screen Alcohol, Quantitative 10/05/18 10/05/18 10/05/18 05:20 07:15 07:15 WBC RBC Hgb Hct MCV MCH MCHC RDW Plt Count MPV Neut % (Auto) Lymph % (Auto) [place] % (Auto) Eos % (Auto) Baso % (Auto) Lymph # (Auto) [place] # (Auto) Eos # (Auto) Baso # (Auto) Absolute Neuts (auto) pCO2 pO2 HCO3 ABG pH ABG Total CO2 ABG O2 Saturation ABG Base Excess ABG Potassium VBG pH VBG pCO2 VBG HCO3 VBG Total CO2 VBG O2 Sat (Calc) VBG Base Excess VBG Potassium Glucose Lactate FiO2 Crit Value Called To Crit Value Called By Blood Gas Notified Time Sodium 140 Potassium 2.9 L* Chloride 105 Carbon Dioxide 26 Anion Gap 12 BUN 3 L Creatinine 0.5 L Est GFR ( Amer) > 60 Est GFR (Non-Af Amer) > 60 POC Glucose (mg/dL) Random Glucose 80 Calcium 7.8 L Phosphorus 3.1 Magnesium 1.6 L Iron 56 TIBC 371 % Saturation 15 L Ferritin 21.0 Total Bilirubin 0.7 AST 20 ALT 21 Alkaline Phosphatase 57 Total Creatine Kinase Total Protein 6.4 Albumin 3.3 Globulin 3.1 Albumin/Globulin Ratio 1.1 Arterial Blood Potassium Venous Blood Potassium Urine Color Urine Appearance Urine pH Ur Specific [place] Urine Protein Urine Glucose (UA) Urine Ketones Urine Blood Urine Nitrate Urine Bilirubin Urine Urobilinogen Ur Leukocyte Esterase Urine RBC Urine WBC Ur Epithelial Cells Urine Bacteria Urine Other Urine HCG, Qual Salicylates Urine Opiates Screen Urine Methadone Screen Acetaminophen Ur Barbiturates Screen Ur Phencyclidine Scrn Ur Amphetamines Screen U Benzodiazepines Scrn U Oth Cocaine Metabols U Cannabinoids Screen Alcohol, Quantitative Attending/Attestation - Attestation I have personally seen and examined this patient.: Yes I have fully participated in the care of the patient.: Yes I have reviewed all pertinent clinical information: Yes Notes (Text): 10/05/18 14:06 Attending note; Patient seen and examined with resident in ER. Patient has been by the bedside. Patient is currently lethargic. Not able to answer questions. Patient is a 27 year old female with no significant past medical history presents status post multidrug overdose. At bedside, patient was not verbally responsive. provided much of the history. 1. Multiple drug overdose; as per family multiple empty bottles in medical cabinet (benadryl, levocetirizine 5 mg, montelukast 10 mg, augmentin 500 mg, prednisone 10 mg. Currently Patient is lethargic. Not in any acute distress. Case discussed with poison control in detail. Patient will be closely monitored in ICU. No airway compromise noted. CT head is negative for any acute findings. Monitor electrolytes, EKG closely. 2. Possible suicidal ideation; one-to-one placed. Psychiatric evaluation requested . 3. Status post seizure episode in the ER; continue IV Ativan. mostly secondary to drug withdrawal. Neurology evaluation requested. 4. GI/DVT prophylaxis. Case discussed with ICU team in detail. Diagnosis, treatment options discussed with patient's in detail by the bedside.
--- NOTE | 2018-10-04 16:59 | CT ---
Date of service: 10/04/2018 PROCEDURE: CT HEAD WITHOUT CONTRAST. HISTORY: ams COMPARISON: None available. TECHNIQUE: Axial computed tomography images were obtained through the head/brain without intravenous contrast. Radiation dose: Total exam DLP = 1263.06 mGy-cm. This CT exam was performed using one or more of the following dose reduction techniques: Automated exposure control, adjustment of the mA and/or kV according to patient size, and/or use of iterative reconstruction technique. FINDINGS: HEMORRHAGE: No intracranial hemorrhage. BRAIN: No mass effect or edema. No atrophy or chronic microvascular ischemic changes. VENTRICLES: Unremarkable. No hydrocephalus. CALVARIUM: Unremarkable. PARANASAL SINUSES: Unremarkable as visualized. No significant inflammatory changes. MASTOID AIR CELLS: Unremarkable as visualized. No inflammatory changes. OTHER FINDINGS: None. IMPRESSION: No acute intracranial pathology.
[2018-10-04 20:02] LABS: VENOUS BLOOD GAS BASE EXCESS 0.1 mmol/L (0.0-2.0); VENOUS BLOOD GAS PO2 48 mm/Hg (30-55); VENOUS BLOOD PH 7.41 (7.32-7.43)
[2018-10-04 20:09] LABS: ALB/GLOB RATIO 1.1 (1.1-1.8); ALT/SGPT 20 U/L (7-56); AST/SGOT 21 U/L (14-36); BLOOD UREA NITROGEN 4 mg/dL (7-21); CALCIUM 7.7 mg/dL (8.4-10.5); GFR NON-AFRICAN AMERICAN > 60
[2018-10-04] MEDS ORDERED: Potassium Chloride 20 mEq ER Tab PO STA (21:07)
[2018-10-04] MEDS ORDERED: Calcium Gluconate in NS 1 GM/50 ML BAG IV ONE (21:30)
[2018-10-05 01:46] LABS: ALB/GLOB RATIO 1.1 (1.1-1.8); ALBUMIN 3.7 g/dL (3.0-4.8); ALT/SGPT 17 U/L (7-56); AST/SGOT 23 U/L (14-36); BLOOD UREA NITROGEN 3 mg/dL (7-21); CALCIUM 8.7 mg/dL (8.4-10.5); GFR NON-AFRICAN AMERICAN > 60
[2018-10-05 06:07] LABS: BASO # 0.02 K/mm3 (0.0-2.0); BASO % 0.2 % (0.0-3.0); EOS % 0.4 % (1.5-5.0); LYMPH # 2.4 (1.2-3.4); MEAN CELL VOLUME 74.9 fl (80.0-105.0); MEAN CORPUSCULAR HEMOGLOBIN 23.7 pg (25.0-35.0); MEAN CORPUSCULAR HGB CONC 31.6 g/dl (31.0-37.0); MEAN PLATELET VOLUME 9.4 fl (7.0-11.0); MONO # 0.6 (0.1-0.6); RBC 4.22 10^6/uL (3.5-6.1); RED CELL DISTRIBUTION WIDTH 20.2 % (11.5-14.5)
[2018-10-05 06:43] LABS: ALB/GLOB RATIO 1.1 (1.1-1.8); ALBUMIN 3.3 g/dL (3.0-4.8); ALT/SGPT 21 U/L (7-56); AST/SGOT 20 U/L (14-36); BLOOD UREA NITROGEN 3 mg/dL (7-21); CALCIUM 7.8 mg/dL (8.4-10.5); GFR NON-AFRICAN AMERICAN > 60
[2018-10-05] MEDS ORDERED: Magnesium Sulfate 2 gm/50 ml 2 GM/50 ML BAG IV ONE (07:01)
[2018-10-05] MEDS ORDERED: Sodium Chloride 0.9% 1,000 ML IV SCH (07:30)
[2018-10-05 08:02] LABS: IRON 56 ug/dL (45-180)
[2018-10-05 08:11] LABS: % IRON SATURATION 15 % (20-55); TOTAL IRON BINDING CAPACITY 371 ug/dL (265-497)
--- NOTE | 2018-10-05 08:34 | CP.PCM.PN ---
<Mohsen Trivedi - Last Filed: 10/05/18 11:42> Subjective - Date & Time of Evaluation Date of Evaluation: 10/05/18 Time of Evaluation: 08:34 - Subjective Subjective: Mohsen Farooq DO PGY1 - Internal Medicine Marketing Clerk - Medicine Progress Note Seen and examined in ICU this morning Awake on exam today Reports suicidal ideation yesterday; First time she's attempted suicide; stated she was having personal issues at home Reports no abuse in her relationship; feels safe at home. No complaints voiced on examination; no abd pain, n/v/d/c/, fevers, chills, chest pain, sob Objective - Vital Signs/Intake and Output Vital Signs (last 24 hours): Temp Pulse Resp BP Pulse Ox 98.4 F 118 H 16 134/88 99 10/04/18 16:29 10/05/18 03:53 10/04/18 16:34 10/04/18 16:15 10/04/18 16:15 Intake and Output: 10/05/18 10/05/18 06:59 18:59 Intake Total 2100 Output Total 2300 Balance -200 - Medications Medications: Current Medications Heparin Sodium (Porcine) (Heparin) 5,000 units SC Q8 TITI; Protocol Last Admin: 10/05/18 05:12 Dose: 5,000 units Potassium Chloride (Potassium Chloride 10 Meq/100 Ml) 10 meq in 100 mls @ 100 mls/hr IVPB Q2H TITI Stop: 10/05/18 14:14 Sodium Chloride (Sodium Chloride 0.9%) 1,000 mls @ 100 mls/hr IV .Q10H TITI Lorazepam (Ativan) 2 mg IVP Q2H PRN; Protocol PRN Reason: Seizure activity Pantoprazole Sodium (Protonix Inj) 40 mg IVP DAILY TITI - Labs Labs: 10/05/18 05:20 10/05/18 05:20 - Constitutional Appears: Well, Non-toxic, No Acute Distress - Head Exam Head Exam: ATRAUMATIC, NORMOCEPHALIC - Eye Exam Eye Exam: EOMI, Normal appearance, PERRL - Respiratory Exam Respiratory Exam: Clear to Ausculation Bilateral, NORMAL BREATHING PATTERN - Cardiovascular Exam Cardiovascular Exam: RRR. absent: Murmur - GI/Abdominal Exam GI & Abdominal Exam: Soft. absent: Tenderness - Neurological Exam Neurological Exam: Alert, Awake, Oriented x3 - Psychiatric Exam Psychiatric exam: Normal Affect, Normal Mood. absent: Suicidal Ideation - Skin Skin Exam: Dry, Intact, Warm Assessment and Plan - Assessment and Plan (Free Text) Assessment: 27F w/ no significant PMH [place] [facility] [place] post multiple medication overdose Plan: Overdose Given lethargy / somnolence on initial presentation; benadryl toxicity most likely etiology Poison control notified upon admission; LFTs wnl, Cr within normal limits Presentation significantly improving at this time; did report suicidal ideation this morning Will continue 1:1 at this time Unable to be evaluated by psych this morning; Will follow up psych reccs Drug Induced Seizure No seizure activity reported since initial episode in ED C/w Ativan 2mg Q2 PRN Seizure Neurology Following, appreciate reccs Electrolyte Deficiency - Hypokalemia, Hypomagnesmia Will replete this AM and recheck in afternoon. Toxic Metabolic Encephalopathy 2/2 Medication Overdose - Resolved CT Head negative AAO3 on examination today No complaints voiced on examination Neurologically intact High Anion Gap Metabolic Acidosis - Resolved s/p Bicarb drip; CO2 improved this AM Cr within normal limits DISPO: Will continue monitoring patient w/ 1:1 in ICU at this time; Patient was seen, examined, and discussed w/ attending Dr. Hinkle at bedside this AM Mohsen Trivedi DO PGY1 Internal Medicine Marketing Clerk <Kasandra Hinkle - Last Filed: 10/05/18 14:15> Objective - Vital Signs/Intake and Output Vital Signs (last 24 hours): Temp Pulse Resp BP Pulse Ox 98.4 F 118 H 16 134/88 99 10/04/18 16:29 10/05/18 03:53 10/04/18 16:34 10/04/18 16:15 10/04/18 16:15 Intake and Output: 10/05/18 10/05/18 06:59 18:59 Intake Total 2100 Output Total 2300 Balance -200 - Medications Medications: Current Medications Heparin Sodium (Porcine) (Heparin) 5,000 units SC Q8 TITI; Protocol Last Admin: 10/05/18 05:12 Dose: 5,000 units Sodium Chloride (Sodium Chloride 0.9%) 1,000 mls @ 100 mls/hr IV .Q10H TITI Lorazepam (Ativan) 2 mg IVP Q2H PRN; Protocol PRN Reason: Seizure activity Pantoprazole Sodium (Protonix Inj) 40 mg IVP DAILY TITI Last Admin: 10/05/18 10:33 Dose: 40 mg Potassium Chloride (K-Dur 20 Meq Er Tab) 40 meq PO ONCE ONE Stop: 10/05/18 18:01 - Labs Labs: 10/05/18 05:20 10/05/18 05:20 Attending/Attestation - Attestation I have personally seen and examined this patient.: Yes I have fully participated in the care of the patient.: Yes I have reviewed all pertinent clinical information, including history, physical exam and plan: Yes Notes (Text): 10/05/18 14:12 Attending note; Patient seen and examined with resident in ICU. Patient is alert and awake. Oriented to place and time. Still looks slightly sleepy. Not in any acute distress. One-to-one sitter by the bedside. Patient is a 27 year old female with no significant past medical history presents status post multidrug overdose. At bedside, patient was not verbally r esponsive. provided much of the history. 1. Multiple drug overdose; patient is currently alert and awake. Tachycardia resolved. Not in acute distress. Able to give some history. Still with flat affect. Tolerating diet. CT head is negative for any acute findings. 2. Hypokalemia; continue potassium supplementation. 3. Hypomagnesemia; IV magnesium ordered. 4. Possible suicidal ideation; one-to-one placed. Psychiatric evaluation appreciated. Complete evaluation pending. Advised to continue one-to-one. 5. Status post seizure episode in the ER; continue IV Ativan. mostly secondary to drug withdrawal. Neurology evaluation requested. 6. GI/DVT prophylaxis. Case discussed with ICU team in detail.
[2018-10-05] MEDS ORDERED: Potassium Chloride 40 mEq/30 ml LIQ UD PO ONE (08:39)
--- NOTE | 2018-10-05 08:39 | CP.CCUPN ---
<Wily Moreno - Last Filed: 10/05/18 10:54> CCU Subjective - Physician Review Subjective (Free Text): 10/05/18 08:34 Wily Moreno PGY-1 Critical Care Progress Note Patient seen and evaluated at bedside. Patient could not sleep overnight. Currently on 1:1 observation. Denies chest pain, palpitations, shortness of breath, abdominal pain, headaches blurry vision and leg pain. CCU Objective - Vital Signs / Intake & Output Intake and Output (Last 8hrs): Intake & Output 10/04/18 10/05/18 10/05/18 22:59 06:59 14:59 Intake Total 3000 2100 Output Total 2300 Balance 3000 -200 Weight 49.124 kg 48.988 kg Intake: IV 3000 2100 Left Forearm 3000 1800 Right Antecubital 300 Oral 0 0 Output: Urine 2300 Urethral ([place]) 2300 Stool 0 Other: Voiding Method Indwelling Catheter - Physical Exam Other physical findings (Free Text): - Constitutional Appears: In No Acute Distress, Resting comfortably in bed - Head Exam Head Exam: ATRAUMATIC, NORMAL INSPECTION - Eye Exam Eye Exam: PERRL. absent: Conjunctival injection, Periorbital swelling, Scleral icterus Pupil Exam: NORMAL ACCOMODATION - ENT Exam ENT Exam: Mucous Membranes Dry - Neck Exam Neck exam: Negative for: Lymphadenopathy - Respiratory Exam Respiratory Exam: Decreased Breath Sounds. absent: Rales, Rhonchi, Wheezes, Stridor - Cardiovascular Exam Cardiovascular Exam: REGULAR RHYTHM, +S1, +S2. absent: JVD, Systolic Murmur, Tachycardia - GI/Abdominal Exam GI & Abdominal Exam: Hypoactive Bowel Sounds, Soft. absent: Distended, Firm - Extremities Exam Extremities exam: Positive for: normal capillary refill, normal inspection, pedal pulses present. Negative for: pedal edema - Neurological Exam Neurological exam: AAOx3, speaking softly - Skin Skin Exam: Dry, Intact, Normal Color, Warm - Medications Active Medications: Active Medications Generic Name Dose Route Start Last Admin Trade Name Freq PRN Reason Stop Dose Admin Heparin Sodium (Porcine) 5,000 units 10/04/18 22:00 10/05/18 05:12 Heparin SC 5,000 units Q8 TITI Administration Protocol Potassium Chloride 10 meq in 100 mls @ 100 mls/hr 10/05/18 07:15 Potassium Chloride 10 Meq/100 Ml IVPB 10/05/18 14:14 Q2H TITI Sodium Chloride 1,000 mls @ 100 mls/hr 10/05/18 07:30 Sodium Chloride 0.9% IV .Q10H TITI Lorazepam 2 mg 10/04/18 16:29 Ativan IVP Q2H PRN Seizure activity Protocol Pantoprazole Sodium 40 mg 10/05/18 10:00 Protonix Inj IVP DAILY TITI - Patient Studies Lab Studies: Lab Studies 10/05/18 10/05/18 10/05/18 Range/Units 07:15 05:20 05:20 WBC 8.0 (4.5-11.0) 10^3/uL RBC 4.22 (3.5-6.1) 10^6/uL Hgb 10.0 L D (12.0-16.0) g/dL Hct 31.6 L (36.0-48.0) % MCV 74.9 L (80.0-105.0) fl MCH 23.7 L (25.0-35.0) pg MCHC 31.6 (31.0-37.0) g/dl RDW 20.2 H (11.5-14.5) % Plt Count 261 (120.0-450.0) 10^3/uL MPV 9.4 (7.0-11.0) fl Neut % (Auto) 61.4 (50.0-68.0) % Lymph % (Auto) 30.0 (22.0-35.0) % [place] % (Auto) 8.0 H (1.0-6.0) % Eos % (Auto) 0.4 L (1.5-5.0) % Baso % (Auto) 0.2 (0.0-3.0) % Lymph # (Auto) 2.4 (1.2-3.4) [place] # (Auto) 0.6 (0.1-0.6) Eos # (Auto) 0.0 (0.0-0.7) Baso # (Auto) 0.02 (0.0-2.0) K/mm3 Absolute Neuts (auto) 4.93 (1.4-6.5) pCO2 (35-45) mm/Hg pO2 (80-100) mm/Hg HCO3 (21-28) mmol/L ABG pH (7.35-7.45) ABG Total CO2 (22-28) mmol.L ABG O2 Saturation (95-98) % ABG Base Excess (-2.0-3.0) mmol/L ABG Potassium (3.6-5.2) mmol/L VBG pH (7.32-7.43) VBG pCO2 (40-60) VBG HCO3 (21-28) mmol/l VBG Total CO2 (22-28) mmol.L VBG O2 Sat (Calc) (40-65) % VBG Base Excess (0.0-2.0) mmol/L VBG Potassium (3.6-5.2) mmol/L Glucose (65-105) mg/dl Lactate (0.7-2.1) mmol/L FiO2 % Crit Value Called To Crit Value Called By Blood Gas Notified Time Sodium 140 (132-148) mmol/L Potassium 2.9 L* (3.6-5.0) mmol/L Chloride 105 (98-107) mmol/L Carbon Dioxide 26 (21-33) mmol/L Anion Gap 12 (10-20) BUN 3 L (7-21) mg/dL Creatinine 0.5 L (0.7-1.2) mg/dl Est GFR ( Amer) > 60 Est GFR (Non-Af Amer) > 60 POC Glucose (mg/dL) (65-110) mg/dL Random Glucose 80 (70-110) mg/dL Calcium 7.8 L (8.4-10.5) mg/dL Phosphorus 3.1 (2.5-4.5) mg/dL Magnesium 1.6 L (1.7-2.2) mg/dL Iron 56 (45-180) ug/dL TIBC 371 (265-497) ug/dL % Saturation 15 L (20-55) % Total Bilirubin 0.7 (0.2-1.3) mg/dL AST 20 (14-36) U/L ALT 21 (7-56) U/L Alkaline Phosphatase 57 (38-126) U/L Total Creatine Kinase (35-230) U/L Total Protein 6.4 (5.8-8.3) g/dL Albumin 3.3 (3.0-4.8) g/dL Globulin 3.1 gm/dL Albumin/Globulin Ratio 1.1 (1.1-1.8) Arterial Blood Potassium (3.6-5.2) mmol/L Venous Blood Potassium (3.6-5.2) mmol/L Urine Color (YELLOW) Urine Appearance (CLEAR) Urine pH (4.7-8.0) Ur Specific [place] (1.005-1.035) Urine Protein (<30 mg/dL) mg/dL Urine Glucose (UA) (NEGATIVE) mg/dL Urine Ketones (NEGATIVE) mg/dL Urine Blood (NEGATIVE) Urine Nitrate (NEGATIVE) Urine Bilirubin (NEGATIVE) Urine Urobilinogen (<1 E.U./dL) E.U./dL Ur Leukocyte Esterase (NEGATIVE) Favian/uL Urine RBC (0-2) /hpf Urine WBC (0-6) /hpf Ur Epithelial Cells (0-5) /hpf Urine Bacteria (NONE) /hpf Urine Other /hpf Urine HCG, Qual (NEGATIVE) Salicylates (2.0-20.0) mg/dL Urine Opiates Screen (NEGATIVE) Urine Methadone Screen (NEGATIVE) Acetaminophen (10.0-20.0) ug/ml Ur Barbiturates Screen (NEGATIVE) Ur Phencyclidine Scrn (NEGATIVE) Ur Amphetamines Screen (NEGATIVE) U Benzodiazepines Scrn (NEGATIVE) U Oth Cocaine Metabols (NEGATIVE) U Cannabinoids Screen (NEGATIVE) Alcohol, Quantitative (0-10) mg/dL 10/05/18 10/04/18 10/04/18 Range/Units 01:16 19:55 19:55 WBC (4.5-11.0) 10^3/uL RBC (3.5-6.1) 10^6/uL Hgb (12.0-16.0) g/dL Hct (36.0-48.0) % MCV (80.0-105.0) fl MCH (25.0-35.0) pg MCHC (31.0-37.0) g/dl RDW (11.5-14.5) % Plt Count (120.0-450.0) 10^3/uL MPV (7.0-11.0) fl Neut % (Auto) (50.0-68.0) % Lymph % (Auto) (22.0-35.0) % [place] % (Auto) (1.0-6.0) % Eos % (Auto) (1.5-5.0) % Baso % (Auto) (0.0-3.0) % Lymph # (Auto) (1.2-3.4) [place] # (Auto) (0.1-0.6) Eos # (Auto) (0.0-0.7) Baso # (Auto) (0.0-2.0) K/mm3 Absolute Neuts (auto) (1.4-6.5) pCO2 (35-45) mm/Hg pO2 48 (80-100) mm/Hg HCO3 (21-28) mmol/L ABG pH (7.35-7.45) ABG Total CO2 (22-28) mmol.L ABG O2 Saturation (95-98) % ABG Base Excess (-2.0-3.0) mmol/L ABG Potassium (3.6-5.2) mmol/L VBG pH 7.41 (7.32-7.43) VBG pCO2 39.0 L (40-60) VBG HCO3 24.7 (21-28) mmol/l VBG Total CO2 25.9 (22-28) mmol.L VBG O2 Sat (Calc) 83.7 H (40-65) % VBG Base Excess 0.1 (0.0-2.0) mmol/L VBG Potassium 3.0 L (3.6-5.2) mmol/L Glucose 107 H (65-105) mg/dl Lactate 1.7 (0.7-2.1) mmol/L FiO2 21.0 % Crit Value Called To Crit Value Called By Blood Gas Notified Time Sodium 141 143.0 144 (132-148) mmol/L Potassium 2.8 L* 3.1 L (3.6-5.0) mmol/L Chloride 106 111.0 H 110 H (98-107) mmol/L Carbon Dioxide 25 22 (21-33) mmol/L Anion Gap 13 15 (10-20) BUN 3 L 4 L (7-21) mg/dL Creatinine 0.5 L 0.5 L (0.7-1.2) mg/dl Est GFR ( Amer) > 60 > 60 Est GFR (Non-Af Amer) > 60 > 60 POC Glucose (mg/dL) (65-110) mg/dL Random Glucose 82 105 (70-110) mg/dL Calcium 8.7 7.7 L (8.4-10.5) mg/dL Phosphorus 3.8 3.2 (2.5-4.5) mg/dL Magnesium 1.7 1.7 (1.7-2.2) mg/dL Iron (45-180) ug/dL TIBC (265-497) ug/dL % Saturation (20-55) % Total Bilirubin 0.8 0.8 (0.2-1.3) mg/dL AST 23 21 (14-36) U/L ALT 17 20 (7-56) U/L Alkaline Phosphatase 65 67 (38-126) U/L Total Creatine Kinase 129 99 (35-230) U/L Total Protein 7.1 7.4 (5.8-8.3) g/dL Albumin 3.7 4.0 (3.0-4.8) g/dL Globulin 3.4 3.5 gm/dL Albumin/Globulin Ratio 1.1 1.1 (1.1-1.8) Arterial Blood Potassium (3.6-5.2) mmol/L Venous Blood Potassium 3.0 L (3.6-5.2) mmol/L Urine Color (YELLOW) Urine Appearance (CLEAR) Urine pH (4.7-8.0) Ur Specific [place] (1.005-1.035) Urine Protein (<30 mg/dL) mg/dL Urine Glucose (UA) (NEGATIVE) mg/dL Urine Ketones (NEGATIVE) mg/dL Urine Blood (NEGATIVE) Urine Nitrate (NEGATIVE) Urine Bilirubin (NEGATIVE) Urine Urobilinogen (<1 E.U./dL) E.U./dL Ur Leukocyte Esterase (NEGATIVE) Favian/uL Urine RBC (0-2) /hpf Urine WBC (0-6) /hpf Ur Epithelial Cells (0-5) /hpf Urine Bacteria (NONE) /hpf Urine Other /hpf Urine HCG, Qual (NEGATIVE) Salicylates (2.0-20.0) mg/dL Urine Opiates Screen (NEGATIVE) Urine Methadone Screen (NEGATIVE) Acetaminophen (10.0-20.0) ug/ml Ur Barbiturates Screen (NEGATIVE) Ur Phencyclidine Scrn (NEGATIVE) Ur Amphetamines Screen (NEGATIVE) U Benzodiazepines Scrn (NEGATIVE) U Oth Cocaine Metabols (NEGATIVE) U Cannabinoids Screen (NEGATIVE) Alcohol, Quantitative (0-10) mg/dL 10/04/18 10/04/18 10/04/18 Range/Units 15:26 15:05 14:45 WBC (4.5-11.0) 10^3/uL RBC (3.5-6.1) 10^6/uL Hgb (12.0-16.0) g/dL Hct (36.0-48.0) % MCV (80.0-105.0) fl MCH (25.0-35.0) pg MCHC (31.0-37.0) g/dl RDW (11.5-14.5) % Plt Count (120.0-450.0) 10^3/uL MPV (7.0-11.0) fl Neut % (Auto) (50.0-68.0) % Lymph % (Auto) (22.0-35.0) % [place] % (Auto) (1.0-6.0) % Eos % (Auto) (1.5-5.0) % Baso % (Auto) (0.0-3.0) % Lymph # (Auto) (1.2-3.4) [place] # (Auto) (0.1-0.6) Eos # (Auto) (0.0-0.7) Baso # (Auto) (0.0-2.0) K/mm3 Absolute Neuts (auto) (1.4-6.5) pCO2 28 L (35-45) mm/Hg pO2 96.0 (80-100) mm/Hg HCO3 13.5 L (21-28) mmol/L ABG pH 7.29 L (7.35-7.45) ABG Total CO2 14.4 L (22-28) mmol.L ABG O2 Saturation 98.4 H (95-98) % ABG Base Excess -11.6 L (-2.0-3.0) mmol/L ABG Potassium 2.7 L (3.6-5.2) mmol/L VBG pH (7.32-7.43) VBG pCO2 (40-60) VBG HCO3 (21-28) mmol/l VBG Total CO2 (22-28) mmol.L VBG O2 Sat (Calc) (40-65) % VBG Base Excess (0.0-2.0) mmol/L VBG Potassium (3.6-5.2) mmol/L Glucose 101 (65-105) mg/dl Lactate 6.1 H* (0.7-2.1) mmol/L FiO2 21.0 % Crit Value Called To Tasha awad Crit Value Called By Meaghan hernandez Blood Gas Notified Time 1527 Sodium 141.0 (132-148) mmol/L Potassium (3.6-5.0) mmol/L Chloride 113.0 H (98-107) mmol/L Carbon Dioxide (21-33) mmol/L Anion Gap (10-20) BUN (7-21) mg/dL Creatinine (0.7-1.2) mg/dl Est GFR ( Amer) Est GFR (Non-Af Amer) POC Glucose (mg/dL) 108 (65-110) mg/dL Random Glucose (70-110) mg/dL Calcium (8.4-10.5) mg/dL Phosphorus (2.5-4.5) mg/dL Magnesium (1.7-2.2) mg/dL Iron (45-180) ug/dL TIBC (265-497) ug/dL % Saturation (20-55) % Total Bilirubin (0.2-1.3) mg/dL AST (14-36) U/L ALT (7-56) U/L Alkaline Phosphatase (38-126) U/L Total Creatine Kinase (35-230) U/L Total Protein (5.8-8.3) g/dL Albumin (3.0-4.8) g/dL Globulin gm/dL Albumin/Globulin Ratio (1.1-1.8) Arterial Blood Potassium 2.7 L (3.6-5.2) mmol/L Venous Blood Potassium (3.6-5.2) mmol/L Urine Color (YELLOW) Urine Appearance (CLEAR) Urine pH (4.7-8.0) Ur Specific [place] (1.005-1.035) Urine Protein (<30 mg/dL) mg/dL Urine Glucose (UA) (NEGATIVE) mg/dL Urine Ketones (NEGATIVE) mg/dL Urine Blood (NEGATIVE) Urine Nitrate (NEGATIVE) Urine Bilirubin (NEGATIVE) Urine Urobilinogen (<1 E.U./dL) E.U./dL Ur Leukocyte Esterase (NEGATIVE) Favian/uL Urine RBC (0-2) /hpf Urine WBC (0-6) /hpf Ur Epithelial Cells (0-5) /hpf Urine Bacteria (NONE) /hpf Urine Other /hpf Urine HCG, Qual (NEGATIVE) Salicylates (2.0-20.0) mg/dL Urine Opiates Screen Negative (NEGATIVE) Urine Methadone Screen Negative (NEGATIVE) Acetaminophen (10.0-20.0) ug/ml Ur Barbiturates Screen Negative (NEGATIVE) Ur Phencyclidine Scrn Negative (NEGATIVE) Ur Amphetamines Screen Negative (NEGATIVE) U Benzodiazepines Scrn Negative (NEGATIVE) U Oth Cocaine Metabols Negative (NEGATIVE) U Cannabinoids Screen Negative (NEGATIVE) Alcohol, Quantitative (0-10) mg/dL 10/04/18 10/04/18 10/04/18 Range/Units 14:45 14:30 14:30 WBC (4.5-11.0) 10^3/uL RBC (3.5-6.1) 10^6/uL Hgb (12.0-16.0) g/dL Hct (36.0-48.0) % MCV (80.0-105.0) fl MCH (25.0-35.0) pg MCHC (31.0-37.0) g/dl RDW (11.5-14.5) % Plt Count (120.0-450.0) 10^3/uL MPV (7.0-11.0) fl Neut % (Auto) (50.0-68.0) % Lymph % (Auto) (22.0-35.0) % [place] % (Auto) (1.0-6.0) % Eos % (Auto) (1.5-5.0) % Baso % (Auto) (0.0-3.0) % Lymph # (Auto) (1.2-3.4) [place] # (Auto) (0.1-0.6) Eos # (Auto) (0.0-0.7) Baso # (Auto) (0.0-2.0) K/mm3 Absolute Neuts (auto) (1.4-6.5) pCO2 (35-45) mm/Hg pO2 (80-100) mm/Hg HCO3 (21-28) mmol/L ABG pH (7.35-7.45) ABG Total CO2 (22-28) mmol.L ABG O2 Saturation (95-98) % ABG Base Excess (-2.0-3.0) mmol/L ABG Potassium (3.6-5.2) mmol/L VBG pH (7.32-7.43) VBG pCO2 (40-60) VBG HCO3 (21-28) mmol/l VBG Total CO2 (22-28) mmol.L VBG O2 Sat (Calc) (40-65) % VBG Base Excess (0.0-2.0) mmol/L VBG Potassium (3.6-5.2) mmol/L Glucose (65-105) mg/dl Lactate (0.7-2.1) mmol/L FiO2 % Crit Value Called To Crit Value Called By Blood Gas Notified Time Sodium (132-148) mmol/L Potassium (3.6-5.0) mmol/L Chloride (98-107) mmol/L Carbon Dioxide (21-33) mmol/L Anion Gap (10-20) BUN (7-21) mg/dL Creatinine (0.7-1.2) mg/dl Est GFR ( Amer) Est GFR (Non-Af Amer) POC Glucose (mg/dL) (65-110) mg/dL Random Glucose (70-110) mg/dL Calcium (8.4-10.5) mg/dL Phosphorus (2.5-4.5) mg/dL Magnesium (1.7-2.2) mg/dL Iron (45-180) ug/dL TIBC (265-497) ug/dL % Saturation (20-55) % Total Bilirubin (0.2-1.3) mg/dL AST (14-36) U/L ALT (7-56) U/L Alkaline Phosphatase (38-126) U/L Total Creatine Kinase (35-230) U/L Total Protein (5.8-8.3) g/dL Albumin (3.0-4.8) g/dL Globulin gm/dL Albumin/Globulin Ratio (1.1-1.8) Arterial Blood Potassium (3.6-5.2) mmol/L Venous Blood Potassium (3.6-5.2) mmol/L Urine Color Yellow (YELLOW) Urine Appearance Clear (CLEAR) Urine pH 7.0 (4.7-8.0) Ur Specific [place] >= 1.030 (1.005-1.035) Urine Protein >=300 H (<30 mg/dL) mg/dL Urine Glucose (UA) Negative (NEGATIVE) mg/dL Urine Ketones 15 H (NEGATIVE) mg/dL Urine Blood Negative (NEGATIVE) Urine Nitrate Negative (NEGATIVE) Urine Bilirubin Small H (NEGATIVE) Urine Urobilinogen 4.0 H (<1 E.U./dL) E.U./dL Ur Leukocyte Esterase Negative (NEGATIVE) Favian/uL Urine RBC 0 - 2 (0-2) /hpf Urine WBC 0 - 2 (0-6) /hpf Ur Epithelial Cells 1 - 3 (0-5) /hpf Urine Bacteria Few (NONE) /hpf Urine Other Mucus /hpf Urine HCG, Qual Negative (NEGATIVE) Salicylates < 1 L (2.0-20.0) mg/dL Urine Opiates Screen (NEGATIVE) Urine Methadone Screen (NEGATIVE) Acetaminophen < 10.0 L (10.0-20.0) ug/ml Ur Barbiturates Screen (NEGATIVE) Ur Phencyclidine Scrn (NEGATIVE) Ur Amphetamines Screen (NEGATIVE) U Benzodiazepines Scrn (NEGATIVE) U Oth Cocaine Metabols (NEGATIVE) U Cannabinoids Screen (NEGATIVE) Alcohol, Quantitative < 10 (0-10) mg/dL 10/04/18 10/04/18 Range/Units 14:30 14:30 WBC 9.4 (4.5-11.0) 10^3/uL RBC 4.86 (3.5-6.1) 10^6/uL Hgb 12.0 (12.0-16.0) g/dL Hct 36.0 (36.0-48.0) % MCV 74.1 L (80.0-105.0) fl MCH 24.7 L (25.0-35.0) pg MCHC 33.3 (31.0-37.0) g/dl RDW 19.6 H (11.5-14.5) % Plt Count 292 (120.0-450.0) 10^3/uL MPV 9.3 (7.0-11.0) fl Neut % (Auto) 75.7 H (50.0-68.0) % Lymph % (Auto) 10.4 L (22.0-35.0) % [place] % (Auto) 13.7 H (1.0-6.0) % Eos % (Auto) 0.0 L (1.5-5.0) % Baso % (Auto) 0.2 (0.0-3.0) % Lymph # (Auto) 1.0 L (1.2-3.4) [place] # (Auto) 1.3 H (0.1-0.6) Eos # (Auto) 0.0 (0.0-0.7) Baso # (Auto) 0.02 (0.0-2.0) K/mm3 Absolute Neuts (auto) 7.11 H (1.4-6.5) pCO2 (35-45) mm/Hg pO2 (80-100) mm/Hg HCO3 (21-28) mmol/L ABG pH (7.35-7.45) ABG Total CO2 (22-28) mmol.L ABG O2 Saturation (95-98) % ABG Base Excess (-2.0-3.0) mmol/L ABG Potassium (3.6-5.2) mmol/L VBG pH (7.32-7.43) VBG pCO2 (40-60) VBG HCO3 (21-28) mmol/l VBG Total CO2 (22-28) mmol.L VBG O2 Sat (Calc) (40-65) % VBG Base Excess (0.0-2.0) mmol/L VBG Potassium (3.6-5.2) mmol/L Glucose (65-105) mg/dl Lactate (0.7-2.1) mmol/L FiO2 % Crit Value Called To Crit Value Called By Blood Gas Notified Time Sodium 144 (132-148) mmol/L Potassium 4.0 (3.6-5.0) mmol/L Chloride 108 H (98-107) mmol/L Carbon Dioxide 18 L (21-33) mmol/L Anion Gap 23 H (10-20) BUN 7 (7-21) mg/dL Creatinine 0.5 L (0.7-1.2) mg/dl Est GFR ( Amer) > 60 Est GFR (Non-Af Amer) > 60 POC Glucose (mg/dL) (65-110) mg/dL Random Glucose 112 H (70-110) mg/dL Calcium 9.3 (8.4-10.5) mg/dL Phosphorus 3.2 (2.5-4.5) mg/dL Magnesium 1.8 (1.7-2.2) mg/dL Iron (45-180) ug/dL TIBC (265-497) ug/dL % Saturation (20-55) % Total Bilirubin 1.0 (0.2-1.3) mg/dL AST 31 (14-36) U/L ALT 11 (7-56) U/L Alkaline Phosphatase 72 (38-126) U/L Total Creatine Kinase 76 (35-230) U/L Total Protein 8.8 H (5.8-8.3) g/dL Albumin 4.7 (3.0-4.8) g/dL Globulin 4.0 gm/dL Albumin/Globulin Ratio 1.2 (1.1-1.8) Arterial Blood Potassium (3.6-5.2) mmol/L Venous Blood Potassium (3.6-5.2) mmol/L Urine Color (YELLOW) Urine Appearance (CLEAR) Urine pH (4.7-8.0) Ur Specific [place] (1.005-1.035) Urine Protein (<30 mg/dL) mg/dL Urine Glucose (UA) (NEGATIVE) mg/dL Urine Ketones (NEGATIVE) mg/dL Urine Blood (NEGATIVE) Urine Nitrate (NEGATIVE) Urine Bilirubin (NEGATIVE) Urine Urobilinogen (<1 E.U./dL) E.U./dL Ur Leukocyte Esterase (NEGATIVE) Favian/uL Urine RBC (0-2) /hpf Urine WBC (0-6) /hpf Ur Epithelial Cells (0-5) /hpf Urine Bacteria (NONE) /hpf Urine Other /hpf Urine HCG, Qual (NEGATIVE) Salicylates (2.0-20.0) mg/dL Urine Opiates Screen (NEGATIVE) Urine Methadone Screen (NEGATIVE) Acetaminophen (10.0-20.0) ug/ml Ur Barbiturates Screen (NEGATIVE) Ur Phencyclidine Scrn (NEGATIVE) Ur Amphetamines Screen (NEGATIVE) U Benzodiazepines Scrn (NEGATIVE) U Oth Cocaine Metabols (NEGATIVE) U Cannabinoids Screen (NEGATIVE) Alcohol, Quantitative (0-10) mg/dL Laboratory Results - last 24 hr 10/04/18 10/04/18 10/04/18 14:30 14:30 14:30 WBC 9.4 RBC 4.86 Hgb 12.0 Hct 36.0 MCV 74.1 L MCH 24.7 L MCHC 33.3 RDW 19.6 H Plt Count 292 MPV 9.3 Neut % (Auto) 75.7 H Lymph % (Auto) 10.4 L [place] % (Auto) 13.7 H Eos % (Auto) 0.0 L Baso % (Auto) 0.2 Lymph # (Auto) 1.0 L [place] # (Auto) 1.3 H Eos # (Auto) 0.0 Baso # (Auto) 0.02 Absolute Neuts (auto) 7.11 H pCO2 pO2 HCO3 ABG pH ABG Total CO2 ABG O2 Saturation ABG Base Excess ABG Potassium VBG pH VBG pCO2 VBG HCO3 VBG Total CO2 VBG O2 Sat (Calc) VBG Base Excess VBG Potassium Glucose Lactate FiO2 Crit Value Called To Crit Value Called By Blood Gas Notified Time Sodium 144 Potassium 4.0 Chloride 108 H Carbon Dioxide 18 L Anion Gap 23 H BUN 7 Creatinine 0.5 L Est GFR ( Amer) > 60 Est GFR (Non-Af Amer) > 60 POC Glucose (mg/dL) Random Glucose 112 H Calcium 9.3 Phosphorus 3.2 Magnesium 1.8 Iron TIBC % Saturation Total Bilirubin 1.0 AST 31 ALT 11 Alkaline Phosphatase 72 Total Creatine Kinase 76 Total Protein 8.8 H Albumin 4.7 Globulin 4.0 Albumin/Globulin Ratio 1.2 Arterial Blood Potassium Venous Blood Potassium Urine Color Urine Appearance Urine pH Ur Specific [place] Urine Protein Urine Glucose (UA) Urine Ketones Urine Blood Urine Nitrate Urine Bilirubin Urine Urobilinogen Ur Leukocyte Esterase Urine RBC Urine WBC Ur Epithelial Cells Urine Bacteria Urine Other Urine HCG, Qual Salicylates < 1 L Urine Opiates Screen Urine Methadone Screen Acetaminophen < 10.0 L Ur Barbiturates Screen Ur Phencyclidine Scrn Ur Amphetamines Screen U Benzodiazepines Scrn U Oth Cocaine Metabols U Cannabinoids Screen Alcohol, Quantitative 10/04/18 10/04/18 10/04/18 14:30 14:45 14:45 WBC RBC Hgb Hct MCV MCH MCHC RDW Plt Count MPV Neut % (Auto) Lymph % (Auto) [place] % (Auto) Eos % (Auto) Baso % (Auto) Lymph # (Auto) [place] # (Auto) Eos # (Auto) Baso # (Auto) Absolute Neuts (auto) pCO2 pO2 HCO3 ABG pH ABG Total CO2 ABG O2 Saturation ABG Base Excess ABG Potassium VBG pH VBG pCO2 VBG HCO3 VBG Total CO2 VBG O2 Sat (Calc) VBG Base Excess VBG Potassium Glucose Lactate FiO2 Crit Value Called To Crit Value Called By Blood Gas Notified Time Sodium Potassium Chloride Carbon Dioxide Anion Gap BUN Creatinine Est GFR ( Amer) Est GFR (Non-Af Amer) POC Glucose (mg/dL) Random Glucose Calcium Phosphorus Magnesium Iron TIBC % Saturation Total Bilirubin AST ALT Alkaline Phosphatase Total Creatine Kinase Total Protein Albumin Globulin Albumin/Globulin Ratio Arterial Blood Potassium Venous Blood Potassium Urine Color Yellow Urine Appearance Clear Urine pH 7.0 Ur Specific [place] >= 1.030 Urine Protein >=300 H Urine Glucose (UA) Negative Urine Ketones 15 H Urine Blood Negative Urine Nitrate Negative Urine Bilirubin Small H Urine Urobilinogen 4.0 H Ur Leukocyte Esterase Negative Urine RBC 0 - 2 Urine WBC 0 - 2 Ur Epithelial Cells 1 - 3 Urine Bacteria Few Urine Other Mucus Urine HCG, Qual Negative Salicylates Urine Opiates Screen Negative Urine Methadone Screen Negative Acetaminophen Ur Barbiturates Screen Negative Ur Phencyclidine Scrn Negative Ur Amphetamines Screen Negative U Benzodiazepines Scrn Negative U Oth Cocaine Metabols Negative U Cannabinoids Screen Negative Alcohol, Quantitative < 10 10/04/18 10/04/18 10/04/18 15:05 15:26 19:55 WBC RBC Hgb Hct MCV MCH MCHC RDW Plt Count MPV Neut % (Auto) Lymph % (Auto) [place] % (Auto) Eos % (Auto) Baso % (Auto) Lymph # (Auto) [place] # (Auto) Eos # (Auto) Baso # (Auto) Absolute Neuts (auto) pCO2 28 L pO2 96.0 HCO3 13.5 L ABG pH 7.29 L ABG Total CO2 14.4 L ABG O2 Saturation 98.4 H ABG Base Excess -11.6 L ABG Potassium 2.7 L VBG pH VBG pCO2 VBG HCO3 VBG Total CO2 VBG O2 Sat (Calc) VBG Base Excess VBG Potassium Glucose 101 Lactate 6.1 H* FiO2 21.0 Crit Value Called To Tasha awad Crit Value Called By Meaghan hernandez Blood Gas Notified Time 1527 Sodium 141.0 144 Potassium 3.1 L Chloride 113.0 H 110 H Carbon Dioxide 22 Anion Gap 15 BUN 4 L Creatinine 0.5 L Est GFR ( Amer) > 60 Est GFR (Non-Af Amer) > 60 POC Glucose (mg/dL) 108 Random Glucose 105 Calcium 7.7 L Phosphorus 3.2 Magnesium 1.7 Iron TIBC % Saturation Total Bilirubin 0.8 AST 21 ALT 20 Alkaline Phosphatase 67 Total Creatine Kinase 99 Total Protein 7.4 Albumin 4.0 Globulin 3.5 Albumin/Globulin Ratio 1.1 Arterial Blood Potassium 2.7 L Venous Blood Potassium Urine Color Urine Appearance Urine pH Ur Specific [place] Urine Protein Urine Glucose (UA) Urine Ketones Urine Blood Urine Nitrate Urine Bilirubin Urine Urobilinogen Ur Leukocyte Esterase Urine RBC Urine WBC Ur Epithelial Cells Urine Bacteria Urine Other Urine HCG, Qual Salicylates Urine Opiates Screen Urine Methadone Screen Acetaminophen Ur Barbiturates Screen Ur Phencyclidine Scrn Ur Amphetamines Screen U Benzodiazepines Scrn U Oth Cocaine Metabols U Cannabinoids Screen Alcohol, Quantitative 10/04/18 10/05/18 10/05/18 19:55 01:16 05:20 WBC 8.0 RBC 4.22 Hgb 10.0 L D Hct 31.6 L MCV 74.9 L MCH 23.7 L MCHC 31.6 RDW 20.2 H Plt Count 261 MPV 9.4 Neut % (Auto) 61.4 Lymph % (Auto) 30.0 [place] % (Auto) 8.0 H Eos % (Auto) 0.4 L Baso % (Auto) 0.2 Lymph # (Auto) 2.4 [place] # (Auto) 0.6 Eos # (Auto) 0.0 Baso # (Auto) 0.02 Absolute Neuts (auto) 4.93 pCO2 pO2 48 HCO3 ABG pH ABG Total CO2 ABG O2 Saturation ABG Base Excess ABG Potassium VBG pH 7.41 VBG pCO2 39.0 L VBG HCO3 24.7 VBG Total CO2 25.9 VBG O2 Sat (Calc) 83.7 H VBG Base Excess 0.1 VBG Potassium 3.0 L Glucose 107 H Lactate 1.7 FiO2 21.0 Crit Value Called To Crit Value Called By Blood Gas Notified Time Sodium 143.0 141 Potassium 2.8 L* Chloride 111.0 H 106 Carbon Dioxide 25 Anion Gap 13 BUN 3 L Creatinine 0.5 L Est GFR ( Amer) > 60 Est GFR (Non-Af Amer) > 60 POC Glucose (mg/dL) Random Glucose 82 Calcium 8.7 Phosphorus 3.8 Magnesium 1.7 Iron TIBC % Saturation Total Bilirubin 0.8 AST 23 ALT 17 Alkaline Phosphatase 65 Total Creatine Kinase 129 Total Protein 7.1 Albumin 3.7 Globulin 3.4 Albumin/Globulin Ratio 1.1 Arterial Blood Potassium Venous Blood Potassium 3.0 L Urine Color Urine Appearance Urine pH Ur Specific [place] Urine Protein Urine Glucose (UA) Urine Ketones Urine Blood Urine Nitrate Urine Bilirubin Urine Urobilinogen Ur Leukocyte Esterase Urine RBC Urine WBC Ur Epithelial Cells Urine Bacteria Urine Other Urine HCG, Qual Salicylates Urine Opiates Screen Urine Methadone Screen Acetaminophen Ur Barbiturates Screen Ur Phencyclidine Scrn Ur Amphetamines Screen U Benzodiazepines Scrn U Oth Cocaine Metabols U Cannabinoids Screen Alcohol, Quantitative 10/05/18 10/05/18 05:20 07:15 WBC RBC Hgb Hct MCV MCH MCHC RDW Plt Count MPV Neut % (Auto) Lymph % (Auto) [place] % (Auto) Eos % (Auto) Baso % (Auto) Lymph # (Auto) [place] # (Auto) Eos # (Auto) Baso # (Auto) Absolute Neuts (auto) pCO2 pO2 HCO3 ABG pH ABG Total CO2 ABG O2 Saturation ABG Base Excess ABG Potassium VBG pH VBG pCO2 VBG HCO3 VBG Total CO2 VBG O2 Sat (Calc) VBG Base Excess VBG Potassium Glucose Lactate FiO2 Crit Value Called To Crit Value Called By Blood Gas Notified Time Sodium 140 Potassium 2.9 L* Chloride 105 Carbon Dioxide 26 Anion Gap 12 BUN 3 L Creatinine 0.5 L Est GFR ( Amer) > 60 Est GFR (Non-Af Amer) > 60 POC Glucose (mg/dL) Random Glucose 80 Calcium 7.8 L Phosphorus 3.1 Magnesium 1.6 L Iron 56 TIBC 371 % Saturation 15 L Total Bilirubin 0.7 AST 20 ALT 21 Alkaline Phosphatase 57 Total Creatine Kinase Total Protein 6.4 Albumin 3.3 Globulin 3.1 Albumin/Globulin Ratio 1.1 Arterial Blood Potassium Venous Blood Potassium Urine Color Urine Appearance Urine pH Ur Specific [place] Urine Protein Urine Glucose (UA) Urine Ketones Urine Blood Urine Nitrate Urine Bilirubin Urine Urobilinogen Ur Leukocyte Esterase Urine RBC Urine WBC Ur Epithelial Cells Urine Bacteria Urine Other Urine HCG, Qual Salicylates Urine Opiates Screen Urine Methadone Screen Acetaminophen Ur Barbiturates Screen Ur Phencyclidine Scrn Ur Amphetamines Screen U Benzodiazepines Scrn U Oth Cocaine Metabols U Cannabinoids Screen Alcohol, Quantitative Radiology Impressions: Radiology Impressions Chest X-Ray 10/04/18 14:41 IMPRESSION: No active disease. Head CT 10/04/18 16:01 IMPRESSION: No acute intracranial pathology. EKG/Cardiology Studies: Cardiology / EKG Studies 10/04/18 14:25 EKG [ELECTROCARDIOGRAM] Stat Comment: Reason For Exam: substance abuse 10/05/18 07:00 ELECTROCARDIOGRAM Routine Comment: Reason For Exam: reevaluate for prolonged qtc from drug overdose Fingerstick Blood Sugar Results: 108 Review of Systems - Review of Systems Review of Systems: 12 point ROS completed and negative except as described in HPI. Critical Care Progress Note - Nutrition Nutrition: Nutrition Category Date Time Status Regular Diet [DIET] Diets 10/05/18 Breakfast Ordered Assessment/Plan - Assessment and Plan (Free Text) Assessment: 27 year old female with no significant PMHx who was found altered at home by her 2/2 to an overdose of multiple medications (benadryl, Levceterizine, Montelukast, Augmentin, Prednisone). Patient AAOx3 in no acute distress. Renal: #High Anion-Gap Metabolic Acidosis, #Lactic Acidosis - Lactate normalized - S/p aggressive fluid hydration with 3L bolus NS - 1/2NS with 75meq bicarb @ 150 cc/hr discontinued, likely cause of hypoKalemia - Begin NS @ 100 cc/hr - Replete K, Ca, Mg with f/u BMP this afternoon Cardiovascular: #Sinus Tachycardia, improved - tachycardia 2/2 anticholinergic effects of benadryl 10/05 EKG shows NSR @ 85 bpm with prolonged QTc 485 - F/u repeat EKG in AM - BP remains normal at this time - Echo ordered Neuro: #Toxic Metabolic Encephalopathy 2/2 Overdose, #Seizure Activity - neurology consulted, Dr Goode 10/05 CT head shows no intracranial patholy or hemmorhage - ativan 2mg q2h prn for seizure activity - neurochecks q2h - Video EEG ordered GI - begin regular diet pending bedside swallow eval Respiratory: #Tachypnea - 2/2 respiratory compensation 10/04 CXR shows no active pulm disease - head of bed to 30 degrees, aspiration precautions - currently saturating well off NC Psychiatry: #Suicide Attempt - per , no psych hx or hx of suicide attempt - UDS negative - poison control contacted by ED, recommended supportive care and recommended against physiostigmine at this time - 1:1 sitter - psychiatry consulted, Dr Richard- further recs appreciated PPx: Heparin SC, SCDs, PTX Patient seen, case reviewed and plan approved by Dr. Hawk. Wily Moreno, PGY-1 <[place]ano Hawk - Last Filed: 10/05/18 11:56> CCU Objective - Vital Signs / Intake & Output Intake and Output (Last 8hrs): Intake & Output 10/04/18 10/05/18 10/05/18 22:59 06:59 14:59 Intake Total 3000 2100 Output Total 2300 Balance 3000 -200 Weight 108 lb 4.8 oz 108 lb Intake: IV 3000 2100 Left Forearm 3000 1800 Right Antecubital 300 Oral 0 0 Output: Urine 2300 Urethral ([place]) 2300 Stool 0 Other: Voiding Method Indwelling Catheter - Medications Active Medications: Active Medications Generic Name Dose Route Start Last Admin Trade Name Freq PRN Reason Stop Dose Admin Heparin Sodium (Porcine) 5,000 units 10/04/18 22:00 10/05/18 05:12 Heparin SC 5,000 units Q8 TITI Administration Protocol Sodium Chloride 1,000 mls @ 100 mls/hr 10/05/18 07:30 Sodium Chloride 0.9% IV .Q10H TITI Lorazepam 2 mg 10/04/18 16:29 Ativan IVP Q2H PRN Seizure activity Protocol Pantoprazole Sodium 40 mg 10/05/18 10:00 10/05/18 10:33 Protonix Inj IVP 40 mg DAILY TITI Administration - Patient Studies Lab Studies: Lab Studies 10/05/18 10/05/18 10/05/18 Range/Units 07:15 05:20 05:20 WBC 8.0 (4.5-11.0) 10^3/uL RBC 4.22 (3.5-6.1) 10^6/uL Hgb 10.0 L D (12.0-16.0) g/dL Hct 31.6 L (36.0-48.0) % MCV 74.9 L (80.0-105.0) fl MCH 23.7 L (25.0-35.0) pg MCHC 31.6 (31.0-37.0) g/dl RDW 20.2 H (11.5-14.5) % Plt Count 261 (120.0-450.0) 10^3/uL MPV 9.4 (7.0-11.0) fl Neut % (Auto) 61.4 (50.0-68.0) % Lymph % (Auto) 30.0 (22.0-35.0) % [place] % (Auto) 8.0 H (1.0-6.0) % Eos % (Auto) 0.4 L (1.5-5.0) % Baso % (Auto) 0.2 (0.0-3.0) % Lymph # (Auto) 2.4 (1.2-3.4) [place] # (Auto) 0.6 (0.1-0.6) Eos # (Auto) 0.0 (0.0-0.7) Baso # (Auto) 0.02 (0.0-2.0) K/mm3 Absolute Neuts (auto) 4.93 (1.4-6.5) pCO2 (35-45) mm/Hg pO2 (80-100) mm/Hg HCO3 (21-28) mmol/L ABG pH (7.35-7.45) ABG Total CO2 (22-28) mmol.L ABG O2 Saturation (95-98) % ABG Base Excess (-2.0-3.0) mmol/L ABG Potassium (3.6-5.2) mmol/L VBG pH (7.32-7.43) VBG pCO2 (40-60) VBG HCO3 (21-28) mmol/l VBG Total CO2 (22-28) mmol.L VBG O2 Sat (Calc) (40-65) % VBG Base Excess (0.0-2.0) mmol/L VBG Potassium (3.6-5.2) mmol/L Glucose (65-105) mg/dl Lactate (0.7-2.1) mmol/L FiO2 % Crit Value Called To Crit Value Called By Blood Gas Notified Time Sodium 140 (132-148) mmol/L Potassium 2.9 L* (3.6-5.0) mmol/L Chloride 105 (98-107) mmol/L Carbon Dioxide 26 (21-33) mmol/L Anion Gap 12 (10-20) BUN 3 L (7-21) mg/dL Creatinine 0.5 L (0.7-1.2) mg/dl Est GFR ( Amer) > 60 Est GFR (Non-Af Amer) > 60 POC Glucose (mg/dL) (65-110) mg/dL Random Glucose 80 (70-110) mg/dL Calcium 7.8 L (8.4-10.5) mg/dL Phosphorus 3.1 (2.5-4.5) mg/dL Magnesium 1.6 L (1.7-2.2) mg/dL Iron 56 (45-180) ug/dL TIBC 371 (265-497) ug/dL % Saturation 15 L (20-55) % Total Bilirubin 0.7 (0.2-1.3) mg/dL AST 20 (14-36) U/L ALT 21 (7-56) U/L Alkaline Phosphatase 57 (38-126) U/L Total Creatine Kinase (35-230) U/L Total Protein 6.4 (5.8-8.3) g/dL Albumin 3.3 (3.0-4.8) g/dL Globulin 3.1 gm/dL Albumin/Globulin Ratio 1.1 (1.1-1.8) Arterial Blood Potassium (3.6-5.2) mmol/L Venous Blood Potassium (3.6-5.2) mmol/L Urine Color (YELLOW) Urine Appearance (CLEAR) Urine pH (4.7-8.0) Ur Specific [place] (1.005-1.035) Urine Protein (<30 mg/dL) mg/dL Urine Glucose (UA) (NEGATIVE) mg/dL Urine Ketones (NEGATIVE) mg/dL Urine Blood (NEGATIVE) Urine Nitrate (NEGATIVE) Urine Bilirubin (NEGATIVE) Urine Urobilinogen (<1 E.U./dL) E.U./dL Ur Leukocyte Esterase (NEGATIVE) Favian/uL Urine RBC (0-2) /hpf Urine WBC (0-6) /hpf Ur Epithelial Cells (0-5) /hpf Urine Bacteria (NONE) /hpf Urine Other /hpf Urine HCG, Qual (NEGATIVE) Salicylates (2.0-20.0) mg/dL Urine Opiates Screen (NEGATIVE) Urine Methadone Screen (NEGATIVE) Acetaminophen (10.0-20.0) ug/ml Ur Barbiturates Screen (NEGATIVE) Ur Phencyclidine Scrn (NEGATIVE) Ur Amphetamines Screen (NEGATIVE) U Benzodiazepines Scrn (NEGATIVE) U Oth Cocaine Metabols (NEGATIVE) U Cannabinoids Screen (NEGATIVE) Alcohol, Quantitative (0-10) mg/dL 10/05/18 10/04/18 10/04/18 Range/Units 01:16 19:55 19:55 WBC (4.5-11.0) 10^3/uL RBC (3.5-6.1) 10^6/uL Hgb (12.0-16.0) g/dL Hct (36.0-48.0) % MCV (80.0-105.0) fl MCH (25.0-35.0) pg MCHC (31.0-37.0) g/dl RDW (11.5-14.5) % Plt Count (120.0-450.0) 10^3/uL MPV (7.0-11.0) fl Neut % (Auto) (50.0-68.0) % Lymph % (Auto) (22.0-35.0) % [place] % (Auto) (1.0-6.0) % Eos % (Auto) (1.5-5.0) % Baso % (Auto) (0.0-3.0) % Lymph # (Auto) (1.2-3.4) [place] # (Auto) (0.1-0.6) Eos # (Auto) (0.0-0.7) Baso # (Auto) (0.0-2.0) K/mm3 Absolute Neuts (auto) (1.4-6.5) pCO2 (35-45) mm/Hg pO2 48 (80-100) mm/Hg HCO3 (21-28) mmol/L ABG pH (7.35-7.45) ABG Total CO2 (22-28) mmol.L ABG O2 Saturation (95-98) % ABG Base Excess (-2.0-3.0) mmol/L ABG Potassium (3.6-5.2) mmol/L VBG pH 7.41 (7.32-7.43) VBG pCO2 39.0 L (40-60) VBG HCO3 24.7 (21-28) mmol/l VBG Total CO2 25.9 (22-28) mmol.L VBG O2 Sat (Calc) 83.7 H (40-65) % VBG Base Excess 0.1 (0.0-2.0) mmol/L VBG Potassium 3.0 L (3.6-5.2) mmol/L Glucose 107 H (65-105) mg/dl Lactate 1.7 (0.7-2.1) mmol/L FiO2 21.0 % Crit Value Called To Crit Value Called By Blood Gas Notified Time Sodium 141 143.0 144 (132-148) mmol/L Potassium 2.8 L* 3.1 L (3.6-5.0) mmol/L Chloride 106 111.0 H 110 H (98-107) mmol/L Carbon Dioxide 25 22 (21-33) mmol/L Anion Gap 13 15 (10-20) BUN 3 L 4 L (7-21) mg/dL Creatinine 0.5 L 0.5 L (0.7-1.2) mg/dl Est GFR ( Amer) > 60 > 60 Est GFR (Non-Af Amer) > 60 > 60 POC Glucose (mg/dL) (65-110) mg/dL Random Glucose 82 105 (70-110) mg/dL Calcium 8.7 7.7 L (8.4-10.5) mg/dL Phosphorus 3.8 3.2 (2.5-4.5) mg/dL Magnesium 1.7 1.7 (1.7-2.2) mg/dL Iron (45-180) ug/dL TIBC (265-497) ug/dL % Saturation (20-55) % Total Bilirubin 0.8 0.8 (0.2-1.3) mg/dL AST 23 21 (14-36) U/L ALT 17 20 (7-56) U/L Alkaline Phosphatase 65 67 (38-126) U/L Total Creatine Kinase 129 99 (35-230) U/L Total Protein 7.1 7.4 (5.8-8.3) g/dL Albumin 3.7 4.0 (3.0-4.8) g/dL Globulin 3.4 3.5 gm/dL Albumin/Globulin Ratio 1.1 1.1 (1.1-1.8) Arterial Blood Potassium (3.6-5.2) mmol/L Venous Blood Potassium 3.0 L (3.6-5.2) mmol/L Urine Color (YELLOW) Urine Appearance (CLEAR) Urine pH (4.7-8.0) Ur Specific [place] (1.005-1.035) Urine Protein (<30 mg/dL) mg/dL Urine Glucose (UA) (NEGATIVE) mg/dL Urine Ketones (NEGATIVE) mg/dL Urine Blood (NEGATIVE) Urine Nitrate (NEGATIVE) Urine Bilirubin (NEGATIVE) Urine Urobilinogen (<1 E.U./dL) E.U./dL Ur Leukocyte Esterase (NEGATIVE) Favian/uL Urine RBC (0-2) /hpf Urine WBC (0-6) /hpf Ur Epithelial Cells (0-5) /hpf Urine Bacteria (NONE) /hpf Urine Other /hpf Urine HCG, Qual (NEGATIVE) Salicylates (2.0-20.0) mg/dL Urine Opiates Screen (NEGATIVE) Urine Methadone Screen (NEGATIVE) Acetaminophen (10.0-20.0) ug/ml Ur Barbiturates Screen (NEGATIVE) Ur Phencyclidine Scrn (NEGATIVE) Ur Amphetamines Screen (NEGATIVE) U Benzodiazepines Scrn (NEGATIVE) U Oth Cocaine Metabols (NEGATIVE) U Cannabinoids Screen (NEGATIVE) Alcohol, Quantitative (0-10) mg/dL 10/04/18 10/04/18 10/04/18 Range/Units 15:26 15:05 14:45 WBC (4.5-11.0) 10^3/uL RBC (3.5-6.1) 10^6/uL Hgb (12.0-16.0) g/dL Hct (36.0-48.0) % MCV (80.0-105.0) fl MCH (25.0-35.0) pg MCHC (31.0-37.0) g/dl RDW (11.5-14.5) % Plt Count (120.0-450.0) 10^3/uL MPV (7.0-11.0) fl Neut % (Auto) (50.0-68.0) % Lymph % (Auto) (22.0-35.0) % [place] % (Auto) (1.0-6.0) % Eos % (Auto) (1.5-5.0) % Baso % (Auto) (0.0-3.0) % Lymph # (Auto) (1.2-3.4) [place] # (Auto) (0.1-0.6) Eos # (Auto) (0.0-0.7) Baso # (Auto) (0.0-2.0) K/mm3 Absolute Neuts (auto) (1.4-6.5) pCO2 28 L (35-45) mm/Hg pO2 96.0 (80-100) mm/Hg HCO3 13.5 L (21-28) mmol/L ABG pH 7.29 L (7.35-7.45) ABG Total CO2 14.4 L (22-28) mmol.L ABG O2 Saturation 98.4 H (95-98) % ABG Base Excess -11.6 L (-2.0-3.0) mmol/L ABG Potassium 2.7 L (3.6-5.2) mmol/L VBG pH (7.32-7.43) VBG pCO2 (40-60) VBG HCO3 (21-28) mmol/l VBG Total CO2 (22-28) mmol.L VBG O2 Sat (Calc) (40-65) % VBG Base Excess (0.0-2.0) mmol/L VBG Potassium (3.6-5.2) mmol/L Glucose 101 (65-105) mg/dl Lactate 6.1 H* (0.7-2.1) mmol/L FiO2 21.0 % Crit Value Called To Tasha awad Crit Value Called By Meaghan hernandez Blood Gas Notified Time 1527 Sodium 141.0 (132-148) mmol/L Potassium (3.6-5.0) mmol/L Chloride 113.0 H (98-107) mmol/L Carbon Dioxide (21-33) mmol/L Anion Gap (10-20) BUN (7-21) mg/dL Creatinine (0.7-1.2) mg/dl Est GFR ( Amer) Est GFR (Non-Af Amer) POC Glucose (mg/dL) 108 (65-110) mg/dL Random Glucose (70-110) mg/dL Calcium (8.4-10.5) mg/dL Phosphorus (2.5-4.5) mg/dL Magnesium (1.7-2.2) mg/dL Iron (45-180) ug/dL TIBC (265-497) ug/dL % Saturation (20-55) % Total Bilirubin (0.2-1.3) mg/dL AST (14-36) U/L ALT (7-56) U/L Alkaline Phosphatase (38-126) U/L Total Creatine Kinase (35-230) U/L Total Protein (5.8-8.3) g/dL Albumin (3.0-4.8) g/dL Globulin gm/dL Albumin/Globulin Ratio (1.1-1.8) Arterial Blood Potassium 2.7 L (3.6-5.2) mmol/L Venous Blood Potassium (3.6-5.2) mmol/L Urine Color (YELLOW) Urine Appearance (CLEAR) Urine pH (4.7-8.0) Ur Specific [place] (1.005-1.035) Urine Protein (<30 mg/dL) mg/dL Urine Glucose (UA) (NEGATIVE) mg/dL Urine Ketones (NEGATIVE) mg/dL Urine Blood (NEGATIVE) Urine Nitrate (NEGATIVE) Urine Bilirubin (NEGATIVE) Urine Urobilinogen (<1 E.U./dL) E.U./dL Ur Leukocyte Esterase (NEGATIVE) Favian/uL Urine RBC (0-2) /hpf Urine WBC (0-6) /hpf Ur Epithelial Cells (0-5) /hpf Urine Bacteria (NONE) /hpf Urine Other /hpf Urine HCG, Qual (NEGATIVE) Salicylates (2.0-20.0) mg/dL Urine Opiates Screen Negative (NEGATIVE) Urine Methadone Screen Negative (NEGATIVE) Acetaminophen (10.0-20.0) ug/ml Ur Barbiturates Screen Negative (NEGATIVE) Ur Phencyclidine Scrn Negative (NEGATIVE) Ur Amphetamines Screen Negative (NEGATIVE) U Benzodiazepines Scrn Negative (NEGATIVE) U Oth Cocaine Metabols Negative (NEGATIVE) U Cannabinoids Screen Negative (NEGATIVE) Alcohol, Quantitative (0-10) mg/dL 10/04/18 10/04/18 10/04/18 Range/Units 14:45 14:30 14:30 WBC (4.5-11.0) 10^3/uL RBC (3.5-6.1) 10^6/uL Hgb (12.0-16.0) g/dL Hct (36.0-48.0) % MCV (80.0-105.0) fl MCH (25.0-35.0) pg MCHC (31.0-37.0) g/dl RDW (11.5-14.5) % Plt Count (120.0-450.0) 10^3/uL MPV (7.0-11.0) fl Neut % (Auto) (50.0-68.0) % Lymph % (Auto) (22.0-35.0) % [place] % (Auto) (1.0-6.0) % Eos % (Auto) (1.5-5.0) % Baso % (Auto) (0.0-3.0) % Lymph # (Auto) (1.2-3.4) [place] # (Auto) (0.1-0.6) Eos # (Auto) (0.0-0.7) Baso # (Auto) (0.0-2.0) K/mm3 Absolute Neuts (auto) (1.4-6.5) pCO2 (35-45) mm/Hg pO2 (80-100) mm/Hg HCO3 (21-28) mmol/L ABG pH (7.35-7.45) ABG Total CO2 (22-28) mmol.L ABG O2 Saturation (95-98) % ABG Base Excess (-2.0-3.0) mmol/L ABG Potassium (3.6-5.2) mmol/L VBG pH (7.32-7.43) VBG pCO2 (40-60) VBG HCO3 (21-28) mmol/l VBG Total CO2 (22-28) mmol.L VBG O2 Sat (Calc) (40-65) % VBG Base Excess (0.0-2.0) mmol/L VBG Potassium (3.6-5.2) mmol/L Glucose (65-105) mg/dl Lactate (0.7-2.1) mmol/L FiO2 % Crit Value Called To Crit Value Called By Blood Gas Notified Time Sodium (132-148) mmol/L Potassium (3.6-5.0) mmol/L Chloride (98-107) mmol/L Carbon Dioxide (21-33) mmol/L Anion Gap (10-20) BUN (7-21) mg/dL Creatinine (0.7-1.2) mg/dl Est GFR ( Amer) Est GFR (Non-Af Amer) POC Glucose (mg/dL) (65-110) mg/dL Random Glucose (70-110) mg/dL Calcium (8.4-10.5) mg/dL Phosphorus (2.5-4.5) mg/dL Magnesium (1.7-2.2) mg/dL Iron (45-180) ug/dL TIBC (265-497) ug/dL % Saturation (20-55) % Total Bilirubin (0.2-1.3) mg/dL AST (14-36) U/L ALT (7-56) U/L Alkaline Phosphatase (38-126) U/L Total Creatine Kinase (35-230) U/L Total Protein (5.8-8.3) g/dL Albumin (3.0-4.8) g/dL Globulin gm/dL Albumin/Globulin Ratio (1.1-1.8) Arterial Blood Potassium (3.6-5.2) mmol/L Venous Blood Potassium (3.6-5.2) mmol/L Urine Color Yellow (YELLOW) Urine Appearance Clear (CLEAR) Urine pH 7.0 (4.7-8.0) Ur Specific [place] >= 1.030 (1.005-1.035) Urine Protein >=300 H (<30 mg/dL) mg/dL Urine Glucose (UA) Negative (NEGATIVE) mg/dL Urine Ketones 15 H (NEGATIVE) mg/dL Urine Blood Negative (NEGATIVE) Urine Nitrate Negative (NEGATIVE) Urine Bilirubin Small H (NEGATIVE) Urine Urobilinogen 4.0 H (<1 E.U./dL) E.U./dL Ur Leukocyte Esterase Negative (NEGATIVE) Favian/uL Urine RBC 0 - 2 (0-2) /hpf Urine WBC 0 - 2 (0-6) /hpf Ur Epithelial Cells 1 - 3 (0-5) /hpf Urine Bacteria Few (NONE) /hpf Urine Other Mucus /hpf Urine HCG, Qual Negative (NEGATIVE) Salicylates < 1 L (2.0-20.0) mg/dL Urine Opiates Screen (NEGATIVE) Urine Methadone Screen (NEGATIVE) Acetaminophen < 10.0 L (10.0-20.0) ug/ml Ur Barbiturates Screen (NEGATIVE) Ur Phencyclidine Scrn (NEGATIVE) Ur Amphetamines Screen (NEGATIVE) U Benzodiazepines Scrn (NEGATIVE) U Oth Cocaine Metabols (NEGATIVE) U Cannabinoids Screen (NEGATIVE) Alcohol, Quantitative < 10 (0-10) mg/dL 10/04/18 10/04/18 Range/Units 14:30 14:30 WBC 9.4 (4.5-11.0) 10^3/uL RBC 4.86 (3.5-6.1) 10^6/uL Hgb 12.0 (12.0-16.0) g/dL Hct 36.0 (36.0-48.0) % MCV 74.1 L (80.0-105.0) fl MCH 24.7 L (25.0-35.0) pg MCHC 33.3 (31.0-37.0) g/dl RDW 19.6 H (11.5-14.5) % Plt Count 292 (120.0-450.0) 10^3/uL MPV 9.3 (7.0-11.0) fl Neut % (Auto) 75.7 H (50.0-68.0) % Lymph % (Auto) 10.4 L (22.0-35.0) % [place] % (Auto) 13.7 H (1.0-6.0) % Eos % (Auto) 0.0 L (1.5-5.0) % Baso % (Auto) 0.2 (0.0-3.0) % Lymph # (Auto) 1.0 L (1.2-3.4) [place] # (Auto) 1.3 H (0.1-0.6) Eos # (Auto) 0.0 (0.0-0.7) Baso # (Auto) 0.02 (0.0-2.0) K/mm3 Absolute Neuts (auto) 7.11 H (1.4-6.5) pCO2 (35-45) mm/Hg pO2 (80-100) mm/Hg HCO3 (21-28) mmol/L ABG pH (7.35-7.45) ABG Total CO2 (22-28) mmol.L ABG O2 Saturation (95-98) % ABG Base Excess (-2.0-3.0) mmol/L ABG Potassium (3.6-5.2) mmol/L VBG pH (7.32-7.43) VBG pCO2 (40-60) VBG HCO3 (21-28) mmol/l VBG Total CO2 (22-28) mmol.L VBG O2 Sat (Calc) (40-65) % VBG Base Excess (0.0-2.0) mmol/L VBG Potassium (3.6-5.2) mmol/L Glucose (65-105) mg/dl Lactate (0.7-2.1) mmol/L FiO2 % Crit Value Called To Crit Value Called By Blood Gas Notified Time Sodium 144 (132-148) mmol/L Potassium 4.0 (3.6-5.0) mmol/L Chloride 108 H (98-107) mmol/L Carbon Dioxide 18 L (21-33) mmol/L Anion Gap 23 H (10-20) BUN 7 (7-21) mg/dL Creatinine 0.5 L (0.7-1.2) mg/dl Est GFR ( Amer) > 60 Est GFR (Non-Af Amer) > 60 POC Glucose (mg/dL) (65-110) mg/dL Random Glucose 112 H (70-110) mg/dL Calcium 9.3 (8.4-10.5) mg/dL Phosphorus 3.2 (2.5-4.5) mg/dL Magnesium 1.8 (1.7-2.2) mg/dL Iron (45-180) ug/dL TIBC (265-497) ug/dL % Saturation (20-55) % Total Bilirubin 1.0 (0.2-1.3) mg/dL AST 31 (14-36) U/L ALT 11 (7-56) U/L Alkaline Phosphatase 72 (38-126) U/L Total Creatine Kinase 76 (35-230) U/L Total Protein 8.8 H (5.8-8.3) g/dL Albumin 4.7 (3.0-4.8) g/dL Globulin 4.0 gm/dL Albumin/Globulin Ratio 1.2 (1.1-1.8) Arterial Blood Potassium (3.6-5.2) mmol/L Venous Blood Potassium (3.6-5.2) mmol/L Urine Color (YELLOW) Urine Appearance (CLEAR) Urine pH (4.7-8.0) Ur Specific [place] (1.005-1.035) Urine Protein (<30 mg/dL) mg/dL Urine Glucose (UA) (NEGATIVE) mg/dL Urine Ketones (NEGATIVE) mg/dL Urine Blood (NEGATIVE) Urine Nitrate (NEGATIVE) Urine Bilirubin (NEGATIVE) Urine Urobilinogen (<1 E.U./dL) E.U./dL Ur Leukocyte Esterase (NEGATIVE) Favian/uL Urine RBC (0-2) /hpf Urine WBC (0-6) /hpf Ur Epithelial Cells (0-5) /hpf Urine Bacteria (NONE) /hpf Urine Other /hpf Urine HCG, Qual (NEGATIVE) Salicylates (2.0-20.0) mg/dL Urine Opiates Screen (NEGATIVE) Urine Methadone Screen (NEGATIVE) Acetaminophen (10.0-20.0) ug/ml Ur Barbiturates Screen (NEGATIVE) Ur Phencyclidine Scrn (NEGATIVE) Ur Amphetamines Screen (NEGATIVE) U Benzodiazepines Scrn (NEGATIVE) U Oth Cocaine Metabols (NEGATIVE) U Cannabinoids Screen (NEGATIVE) Alcohol, Quantitative (0-10) mg/dL Laboratory Results - last 24 hr 10/04/18 10/04/18 10/04/18 14:30 14:30 14:30 WBC 9.4 RBC 4.86 Hgb 12.0 Hct 36.0 MCV 74.1 L MCH 24.7 L MCHC 33.3 RDW 19.6 H Plt Count 292 MPV 9.3 Neut % (Auto) 75.7 H Lymph % (Auto) 10.4 L [place] % (Auto) 13.7 H Eos % (Auto) 0.0 L Baso % (Auto) 0.2 Lymph # (Auto) 1.0 L [place] # (Auto) 1.3 H Eos # (Auto) 0.0 Baso # (Auto) 0.02 Absolute Neuts (auto) 7.11 H pCO2 pO2 HCO3 ABG pH ABG Total CO2 ABG O2 Saturation ABG Base Excess ABG Potassium VBG pH VBG pCO2 VBG HCO3 VBG Total CO2 VBG O2 Sat (Calc) VBG Base Excess VBG Potassium Glucose Lactate FiO2 Crit Value Called To Crit Value Called By Blood Gas Notified Time Sodium 144 Potassium 4.0 Chloride 108 H Carbon Dioxide 18 L Anion Gap 23 H BUN 7 Creatinine 0.5 L Est GFR ( Amer) > 60 Est GFR (Non-Af Amer) > 60 POC Glucose (mg/dL) Random Glucose 112 H Calcium 9.3 Phosphorus 3.2 Magnesium 1.8 Iron TIBC % Saturation Total Bilirubin 1.0 AST 31 ALT 11 Alkaline Phosphatase 72 Total Creatine Kinase 76 Total Protein 8.8 H Albumin 4.7 Globulin 4.0 Albumin/Globulin Ratio 1.2 Arterial Blood Potassium Venous Blood Potassium Urine Color Urine Appearance Urine pH Ur Specific [place] Urine Protein Urine Glucose (UA) Urine Ketones Urine Blood Urine Nitrate Urine Bilirubin Urine Urobilinogen Ur Leukocyte Esterase Urine RBC Urine WBC Ur Epithelial Cells Urine Bacteria Urine Other Urine HCG, Qual Salicylates < 1 L Urine Opiates Screen Urine Methadone Screen Acetaminophen < 10.0 L Ur Barbiturates Screen Ur Phencyclidine Scrn Ur Amphetamines Screen U Benzodiazepines Scrn U Oth Cocaine Metabols U Cannabinoids Screen Alcohol, Quantitative 10/04/18 10/04/18 10/04/18 14:30 14:45 14:45 WBC RBC Hgb Hct MCV MCH MCHC RDW Plt Count MPV Neut % (Auto) Lymph % (Auto) [place] % (Auto) Eos % (Auto) Baso % (Auto) Lymph # (Auto) [place] # (Auto) Eos # (Auto) Baso # (Auto) Absolute Neuts (auto) pCO2 pO2 HCO3 ABG pH ABG Total CO2 ABG O2 Saturation ABG Base Excess ABG Potassium VBG pH VBG pCO2 VBG HCO3 VBG Total CO2 VBG O2 Sat (Calc) VBG Base Excess VBG Potassium Glucose Lactate FiO2 Crit Value Called To Crit Value Called By Blood Gas Notified Time Sodium Potassium Chloride Carbon Dioxide Anion Gap BUN Creatinine Est GFR ( Amer) Est GFR (Non-Af Amer) POC Glucose (mg/dL) Random Glucose Calcium Phosphorus Magnesium Iron TIBC % Saturation Total Bilirubin AST ALT Alkaline Phosphatase Total Creatine Kinase Total Protein Albumin Globulin Albumin/Globulin Ratio Arterial Blood Potassium Venous Blood Potassium Urine Color Yellow Urine Appearance Clear Urine pH 7.0 Ur Specific [place] >= 1.030 Urine Protein >=300 H Urine Glucose (UA) Negative Urine Ketones 15 H Urine Blood Negative Urine Nitrate Negative Urine Bilirubin Small H Urine Urobilinogen 4.0 H Ur Leukocyte Esterase Negative Urine RBC 0 - 2 Urine WBC 0 - 2 Ur Epithelial Cells 1 - 3 Urine Bacteria Few Urine Other Mucus Urine HCG, Qual Negative Salicylates Urine Opiates Screen Negative Urine Methadone Screen Negative Acetaminophen Ur Barbiturates Screen Negative Ur Phencyclidine Scrn Negative Ur Amphetamines Screen Negative U Benzodiazepines Scrn Negative U Oth Cocaine Metabols Negative U Cannabinoids Screen Negative Alcohol, Quantitative < 10 10/04/18 10/04/18 10/04/18 15:05 15:26 19:55 WBC RBC Hgb Hct MCV MCH MCHC RDW Plt Count MPV Neut % (Auto) Lymph % (Auto) [place] % (Auto) Eos % (Auto) Baso % (Auto) Lymph # (Auto) [place] # (Auto) Eos # (Auto) Baso # (Auto) Absolute Neuts (auto) pCO2 28 L pO2 96.0 HCO3 13.5 L ABG pH 7.29 L ABG Total CO2 14.4 L ABG O2 Saturation 98.4 H ABG Base Excess -11.6 L ABG Potassium 2.7 L VBG pH VBG pCO2 VBG HCO3 VBG Total CO2 VBG O2 Sat (Calc) VBG Base Excess VBG Potassium Glucose 101 Lactate 6.1 H* FiO2 21.0 Crit Value Called To Tasha awad Crit Value Called By Meaghan hernandez Blood Gas Notified Time 1527 Sodium 141.0 144 Potassium 3.1 L Chloride 113.0 H 110 H Carbon Dioxide 22 Anion Gap 15 BUN 4 L Creatinine 0.5 L Est GFR ( Amer) > 60 Est GFR (Non-Af Amer) > 60 POC Glucose (mg/dL) 108 Random Glucose 105 Calcium 7.7 L Phosphorus 3.2 Magnesium 1.7 Iron TIBC % Saturation Total Bilirubin 0.8 AST 21 ALT 20 Alkaline Phosphatase 67 Total Creatine Kinase 99 Total Protein 7.4 Albumin 4.0 Globulin 3.5 Albumin/Globulin Ratio 1.1 Arterial Blood Potassium 2.7 L Venous Blood Potassium Urine Color Urine Appearance Urine pH Ur Specific [place] Urine Protein Urine Glucose (UA) Urine Ketones Urine Blood Urine Nitrate Urine Bilirubin Urine Urobilinogen Ur Leukocyte Esterase Urine RBC Urine WBC Ur Epithelial Cells Urine Bacteria Urine Other Urine HCG, Qual Salicylates Urine Opiates Screen Urine Methadone Screen Acetaminophen Ur Barbiturates Screen Ur Phencyclidine Scrn Ur Amphetamines Screen U Benzodiazepines Scrn U Oth Cocaine Metabols U Cannabinoids Screen Alcohol, Quantitative 10/04/18 10/05/18 10/05/18 19:55 01:16 05:20 WBC 8.0 RBC 4.22 Hgb 10.0 L D Hct 31.6 L MCV 74.9 L MCH 23.7 L MCHC 31.6 RDW 20.2 H Plt Count 261 MPV 9.4 Neut % (Auto) 61.4 Lymph % (Auto) 30.0 [place] % (Auto) 8.0 H Eos % (Auto) 0.4 L Baso % (Auto) 0.2 Lymph # (Auto) 2.4 [place] # (Auto) 0.6 Eos # (Auto) 0.0 Baso # (Auto) 0.02 Absolute Neuts (auto) 4.93 pCO2 pO2 48 HCO3 ABG pH ABG Total CO2 ABG O2 Saturation ABG Base Excess ABG Potassium VBG pH 7.41 VBG pCO2 39.0 L VBG HCO3 24.7 VBG Total CO2 25.9 VBG O2 Sat (Calc) 83.7 H VBG Base Excess 0.1 VBG Potassium 3.0 L Glucose 107 H Lactate 1.7 FiO2 21.0 Crit Value Called To Crit Value Called By Blood Gas Notified Time Sodium 143.0 141 Potassium 2.8 L* Chloride 111.0 H 106 Carbon Dioxide 25 Anion Gap 13 BUN 3 L Creatinine 0.5 L Est GFR ( Amer) > 60 Est GFR (Non-Af Amer) > 60 POC Glucose (mg/dL) Random Glucose 82 Calcium 8.7 Phosphorus 3.8 Magnesium 1.7 Iron TIBC % Saturation Total Bilirubin 0.8 AST 23 ALT 17 Alkaline Phosphatase 65 Total Creatine Kinase 129 Total Protein 7.1 Albumin 3.7 Globulin 3.4 Albumin/Globulin Ratio 1.1 Arterial Blood Potassium Venous Blood Potassium 3.0 L Urine Color Urine Appearance Urine pH Ur Specific [place] Urine Protein Urine Glucose (UA) Urine Ketones Urine Blood Urine Nitrate Urine Bilirubin Urine Urobilinogen Ur Leukocyte Esterase Urine RBC Urine WBC Ur Epithelial Cells Urine Bacteria Urine Other Urine HCG, Qual Salicylates Urine Opiates Screen Urine Methadone Screen Acetaminophen Ur Barbiturates Screen Ur Phencyclidine Scrn Ur Amphetamines Screen U Benzodiazepines Scrn U Oth Cocaine Metabols U Cannabinoids Screen Alcohol, Quantitative 10/05/18 10/05/18 05:20 07:15 WBC RBC Hgb Hct MCV MCH MCHC RDW Plt Count MPV Neut % (Auto) Lymph % (Auto) [place] % (Auto) Eos % (Auto) Baso % (Auto) Lymph # (Auto) [place] # (Auto) Eos # (Auto) Baso # (Auto) Absolute Neuts (auto) pCO2 pO2 HCO3 ABG pH ABG Total CO2 ABG O2 Saturation ABG Base Excess ABG Potassium VBG pH VBG pCO2 VBG HCO3 VBG Total CO2 VBG O2 Sat (Calc) VBG Base Excess VBG Potassium Glucose Lactate FiO2 Crit Value Called To Crit Value Called By Blood Gas Notified Time Sodium 140 Potassium 2.9 L* Chloride 105 Carbon Dioxide 26 Anion Gap 12 BUN 3 L Creatinine 0.5 L Est GFR ( Amer) > 60 Est GFR (Non-Af Amer) > 60 POC Glucose (mg/dL) Random Glucose 80 Calcium 7.8 L Phosphorus 3.1 Magnesium 1.6 L Iron 56 TIBC 371 % Saturation 15 L Total Bilirubin 0.7 AST 20 ALT 21 Alkaline Phosphatase 57 Total Creatine Kinase Total Protein 6.4 Albumin 3.3 Globulin 3.1 Albumin/Globulin Ratio 1.1 Arterial Blood Potassium Venous Blood Potassium Urine Color Urine Appearance Urine pH Ur Specific [place] Urine Protein Urine Glucose (UA) Urine Ketones Urine Blood Urine Nitrate Urine Bilirubin Urine Urobilinogen Ur Leukocyte Esterase Urine RBC Urine WBC Ur Epithelial Cells Urine Bacteria Urine Other Urine HCG, Qual Salicylates Urine Opiates Screen Urine Methadone Screen Acetaminophen Ur Barbiturates Screen Ur Phencyclidine Scrn Ur Amphetamines Screen U Benzodiazepines Scrn U Oth Cocaine Metabols U Cannabinoids Screen Alcohol, Quantitative Radiology Impressions: Radiology Impressions Chest X-Ray 10/04/18 14:41 IMPRESSION: No active disease. Head CT 10/04/18 16:01 IMPRESSION: No acute intracranial pathology. EKG/Cardiology Studies: Cardiology / EKG Studies 10/04/18 14:25 EKG [ELECTROCARDIOGRAM] Stat Comment: Reason For Exam: substance abuse 10/05/18 07:00 ELECTROCARDIOGRAM Routine Comment: Reason For Exam: reevaluate for prolonged qtc from drug overdose 10/06/18 07:00 EKG [ELECTROCARDIOGRAM] Routine Comment: Reason For Exam: QTc prolongation Critical Care Progress Note - Nutrition Nutrition: Nutrition Category Date Time Status Regular Diet [DIET] Diets 10/05/18 Breakfast Ordered Assessment/Plan - Assessment and Plan (Free Text) Assessment: I saw and examined the patients on rounds with the resident, agree with note with following additions/exceptions: Patient is 27yo female with PMHx of recent depression, unclear exacerbating psychosocial factors at home, was found down on her bed, altered by her , with empty pill bottles of benadryl, Levceterizine, Montelukast, Augmentin, Prednisone, unknown dosages or tablet amount. Jose A/HCP, reports that he last saw his at 11AM, and when he returned around 1pm, he found her minimally responsive. reports no prior overdoses. Pt was initally tachycardic ST 180s, given 3L NS bolus, and had witnessed 10 second seziure, given Ativan IV CTH negative Today on exam, afebrile, HD stable, more awake, alert, conversing with family, protecting airway, pulse ox on RA 98% EKG today QTc 485 Poison control contacted, recs appreciated, will follow Tylenol, ASA levels negative, LFTs wnl, Cr wnl today Multidrug overdose Depression Metabolic acidosis Dehydration Tachycardia Seizure DPH overdose Recommend: - cont with supp o2, duonebs PRN, monitor resp status closely - Panculture, UCx, BCx, Procal - Obtain ECHO - DC 1/2NS with 75meq NaBicarb, start NS 100cc/hr - I/Os - monitor LFTs, Cr - VEEG - Neuro eval - Psych Eval - BZD PRN - follow up with poison control - start PO diet - 1:1 obs - GI ppx - DVT ppx - Monitor in MICU Critical care time 30 minute
[2018-10-05] MEDS: Calcium Gluconate in NS 1 GM/50 ML BAG IV ONE ×2 (09:42→09:53)
[2018-10-05] MEDS ORDERED: Potassium Chloride 20 mEq ER Tab PO ONE ×2 (10:30→18:00)
--- NOTE | 2018-10-05 10:30 | CP.PCM.PCO ---
Addendum Addendum: Patient was sleeping and sedated {not easily roused} during my visit this morning. I spoke with staff, patient was up all night and had a lot of difficulty falling and staying asleep. Apparently she fell asleep shortly before my visit. Psychiatry will f/u again in the AM. I reviewed ER records and recent notes. I confirmed with staff that patient remains on 1:1 since there is no doubt that it was a suicide attempt (her first one per records) that resulted in this hospitalization. 10/05/18 10:24
--- NOTE | 2018-10-05 11:28 | CARD ---
APPROVED REPORT Date of service: 10/04/2018 EKG Measurement Heart [id number] <Conclusion> Possible a flutter with 2:[address] and T wave abnormality Abnormal ECG
[2018-10-05 14:24] LABS: BLOOD UREA NITROGEN 4 mg/dL (7-21); CALCIUM 8.5 mg/dL (8.4-10.5); GFR NON-AFRICAN AMERICAN > 60
[2018-10-06 06:10] LABS: BASO # 0.03 K/mm3 (0.0-2.0); BASO % 0.6 % (0.0-3.0); EOS # 0.1 (0.0-0.7); EOS % 1.7 % (1.5-5.0); HEMOGLOBIN 10.3 g/dL (12.0-16.0); LYMPH % 37.4 % (22.0-35.0); MEAN CELL VOLUME 76.5 fl (80.0-105.0); MEAN CORPUSCULAR HEMOGLOBIN 23.7 pg (25.0-35.0); MEAN PLATELET VOLUME 8.9 fl (7.0-11.0); MONO # 0.4 (0.1-0.6); MONO % 7.8 % (1.0-6.0); RBC 4.34 10^6/uL (3.5-6.1); RED CELL DISTRIBUTION WIDTH 20.9 % (11.5-14.5); WHITE BLOOD COUNT 5.3 10^3/uL (4.5-11.0)
[2018-10-06 07:10] LABS: ALBUMIN 3.4 g/dL (3.0-4.8); ALT/SGPT 16 U/L (7-56); AST/SGOT 23 U/L (14-36); BLOOD UREA NITROGEN 7 mg/dL (7-21); CALCIUM 8.3 mg/dL (8.4-10.5); GFR NON-AFRICAN AMERICAN > 60
--- NOTE | 2018-10-06 09:58 | CP.CCUPN ---
<Govind Celestin R - Last Filed: 10/06/18 09:50> CCU Subjective - Physician Review Subjective (Free Text): PGY-2 ICU progress note for Dr Harvey Patient lying comfortably in bed, AAOx3, denies focal deficits, denies discomfort or pain or n/v, f/c. Stated she's having normal bowel movement and urinating normally. 10/06/18 09:50 CCU Objective - Vital Signs / Intake & Output Intake and Output (Last 8hrs): Intake & Output 10/05/18 10/06/18 10/06/18 22:59 06:59 14:59 Intake Total 1700 1460 Output Total 2400 1 Balance -700 1459 Intake: IV 1400 1200 Left Forearm 1400 1200 Right Antecubital 0 Oral 300 260 Output: Urine 2400 Urethral ([place]) 2400 Stool 0 Urine/Stool Mix 1 - Physical Exam Physical Exam Limitations: Negative for: Altered Mental Status Head: Positive for: Atraumatic, Normocephalic. Negative for: Tenderness Pupils: Positive for: PERRL Extroacular Muscles: Positive for: EOMI Conjunctiva: Positive for: Normal Neck: Positive for: Normal Range of Motion Respiratory/Chest: Positive for: Clear to Auscultation. Negative for: Accessory Muscle Use, Wheezes, Rales Cardiovascular: Positive for: Regular Rate and Rhythm, Normal S1, S2. Negative for: Murmurs, Irregular Rhythm Abdomen: Positive for: Normal Bowel Sounds. Negative for: Tenderness, Distention, Rebound, Guarding Upper Extremity: Positive for: Normal Inspection, Capillary Refill < 2s. Negative for: Edema Lower Extremity: Positive for: Normal Inspection, Capillary Refill < 2 s. N egative for: Edema Neurological: Positive for: GCS=15, CN II-XII Intact, Speech Normal Skin: Positive for: Warm, Dry Psychiatric: Positive for: Alert, Oriented x 3, Depressed Mood - Medications Active Medications: Active Medications Generic Name Dose Route Start Last Admin Trade Name Freq PRN Reason Stop Dose Admin Heparin Sodium (Porcine) 5,000 units 10/04/18 22:00 10/06/18 06:36 Heparin SC Not Given Q8 TITI Protocol Sodium Chloride 1,000 mls @ 100 mls/hr 10/05/18 07:30 10/06/18 04:45 Sodium Chloride 0.9% IV 100 mls/hr .Q10H TITI Administration Lorazepam 2 mg 10/04/18 16:29 Ativan IVP Q2H PRN Seizure activity Protocol Pantoprazole Sodium 40 mg 10/05/18 10:00 10/05/18 10:33 Protonix Inj IVP 40 mg DAILY TITI Administration - Patient Studies Lab Studies: Lab Studies 10/06/18 10/06/18 10/05/18 Range/Units 05:20 05:20 13:55 WBC 5.3 D (4.5-11.0) 10^3/uL RBC 4.34 (3.5-6.1) 10^6/uL Hgb 10.3 L (12.0-16.0) g/dL Hct 33.2 L (36.0-48.0) % MCV 76.5 L (80.0-105.0) fl MCH 23.7 L (25.0-35.0) pg MCHC 31.0 (31.0-37.0) g/dl RDW 20.9 H (11.5-14.5) % Plt Count 262 (120.0-450.0) 10^3/uL MPV 8.9 (7.0-11.0) fl Neut % (Auto) 52.5 (50.0-68.0) % Lymph % (Auto) 37.4 H (22.0-35.0) % [place] % (Auto) 7.8 H (1.0-6.0) % Eos % (Auto) 1.7 (1.5-5.0) % Baso % (Auto) 0.6 (0.0-3.0) % Lymph # (Auto) 2.0 (1.2-3.4) [place] # (Auto) 0.4 (0.1-0.6) Eos # (Auto) 0.1 (0.0-0.7) Baso # (Auto) 0.03 (0.0-2.0) K/mm3 Absolute Neuts (auto) 2.77 (1.4-6.5) Sodium 138 138 (132-148) mmol/L Potassium 3.8 3.8 (3.6-5.0) mmol/L Chloride 109 H 106 (98-107) mmol/L Carbon Dioxide 21 23 (21-33) mmol/L Anion Gap 12 12 (10-20) BUN 7 4 L (7-21) mg/dL Creatinine 0.4 L 0.5 L (0.7-1.2) mg/dl Est GFR ( Amer) > 60 > 60 Est GFR (Non-Af Amer) > 60 > 60 Random Glucose 99 105 (70-110) mg/dL Calcium 8.3 L 8.5 (8.4-10.5) mg/dL Phosphorus 3.0 (2.5-4.5) mg/dL Magnesium 2.1 (1.7-2.2) mg/dL Ferritin ng/mL Total Bilirubin 0.3 (0.2-1.3) mg/dL AST 23 (14-36) U/L ALT 16 (7-56) U/L Alkaline Phosphatase 56 (38-126) U/L Total Protein 6.6 (5.8-8.3) g/dL Albumin 3.4 (3.0-4.8) g/dL Globulin 3.2 gm/dL Albumin/Globulin Ratio 1.0 L (1.1-1.8) // Range/Units 07:15 WBC (4.5-11.0) 10^3/uL RBC (3.5-6.1) 10^6/uL Hgb (12.0-16.0) g/dL Hct (36.0-48.0) % MCV (80.0-105.0) fl MCH (25.0-35.0) pg MCHC (31.0-37.0) g/dl RDW (11.5-14.5) % Plt Count (120.0-450.0) 10^3/uL MPV (7.0-11.0) fl Neut % (Auto) (50.0-68.0) % Lymph % (Auto) (22.0-35.0) % [place] % (Auto) (1.0-6.0) % Eos % (Auto) (1.5-5.0) % Baso % (Auto) (0.0-3.0) % Lymph # (Auto) (1.2-3.4) [place] # (Auto) (0.1-0.6) Eos # (Auto) (0.0-0.7) Baso # (Auto) (0.0-2.0) K/mm3 Absolute Neuts (auto) (1.4-6.5) Sodium (132-148) mmol/L Potassium (3.6-5.0) mmol/L Chloride (98-107) mmol/L Carbon Dioxide (21-33) mmol/L Anion Gap (10-20) BUN (7-21) mg/dL Creatinine (0.7-1.2) mg/dl Est GFR ( Amer) Est GFR (Non-Af Amer) Random Glucose (70-110) mg/dL Calcium (8.4-10.5) mg/dL Phosphorus (2.5-4.5) mg/dL Magnesium (1.7-2.2) mg/dL Ferritin 21.0 ng/mL Total Bilirubin (0.2-1.3) mg/dL AST (14-36) U/L ALT (7-56) U/L Alkaline Phosphatase (38-126) U/L Total Protein (5.8-8.3) g/dL Albumin (3.0-4.8) g/dL Globulin gm/dL Albumin/Globulin Ratio (1.1-1.8) Laboratory Results - last 24 hr 10/05/18 10/05/18 10/06/18 07:15 13:55 05:20 WBC 5.3 D RBC 4.34 Hgb 10.3 L Hct 33.2 L MCV 76.5 L MCH 23.7 L MCHC 31.0 RDW 20.9 H Plt Count 262 MPV 8.9 Neut % (Auto) 52.5 Lymph % (Auto) 37.4 H [place] % (Auto) 7.8 H Eos % (Auto) 1.7 Baso % (Auto) 0.6 Lymph # (Auto) 2.0 [place] # (Auto) 0.4 Eos # (Auto) 0.1 Baso # (Auto) 0.03 Absolute Neuts (auto) 2.77 Sodium 138 Potassium 3.8 Chloride 106 Carbon Dioxide 23 Anion Gap 12 BUN 4 L Creatinine 0.5 L Est GFR ( Amer) > 60 Est GFR (Non-Af Amer) > 60 Random Glucose 105 Calcium 8.5 Phosphorus Magnesium Ferritin 21.0 Total Bilirubin AST ALT Alkaline Phosphatase Total Protein Albumin Globulin Albumin/Globulin Ratio 10/06/18 05:20 WBC RBC Hgb Hct MCV MCH MCHC RDW Plt Count MPV Neut % (Auto) Lymph % (Auto) [place] % (Auto) Eos % (Auto) Baso % (Auto) Lymph # (Auto) [place] # (Auto) Eos # (Auto) Baso # (Auto) Absolute Neuts (auto) Sodium 138 Potassium 3.8 Chloride 109 H Carbon Dioxide 21 Anion Gap 12 BUN 7 Creatinine 0.4 L Est GFR ( Amer) > 60 Est GFR (Non-Af Amer) > 60 Random Glucose 99 Calcium 8.3 L Phosphorus 3.0 Magnesium 2.1 Ferritin Total Bilirubin 0.3 AST 23 ALT 16 Alkaline Phosphatase 56 Total Protein 6.6 Albumin 3.4 Globulin 3.2 Albumin/Globulin Ratio 1.0 L EKG/Cardiology Studies: Cardiology / EKG Studies 10/06/18 07:00 EKG [ELECTROCARDIOGRAM] Routine Comment: Reason For Exam: QTc prolongation Fingerstick Blood Sugar Results: 108 Review of Systems - Review of Systems All systems: reviewed and no additional remarkable complaints except (as stated in subjective) Critical Care Progress Note - Nutrition Nutrition: Nutrition Category Date Time Status Regular Diet [DIET] Diets 10/05/18 Breakfast Ordered Assessment/Plan - Assessment and Plan (Free Text) Plan: 27 year old female with no significant PMHx who was found altered at home by her 2/2 to an overdose of multiple medications (benadryl, Levceterizine, Montelukast, Augmentin, Prednisone). Patient AAOx3 in no acute distress. Renal: #High Anion-Gap Metabolic Acidosis - resolved, #Lactic Acidosis - resolved - Lactate normalized - s/p aggressive fluid hydration with 3L bolus NS - 1/2NS with 75meq bicarb @ 150 cc/hr discontinued, likely cause of hypoKalemia - Begin NS @ 100 cc/hr - Replete K, Ca, Mg with f/u BMP this afternoon Cardiovascular: #Sinus Tachycardia - resolved - tachycardia 2/2 anticholinergic effects of benadryl - repeat EKG NSR with normal Qtc - normotensive at this time - Echo ordered Neuro: #Toxic Metabolic Encephalopathy 2/2 Overdose - resolved, #Seizure Activity - resolved - neurology consulted, Dr Goode - 10/05 CT head shows no intracranial pathology or hemorrhage - ativan 2mg q2h prn for seizure activity - neurochecks q2h - Video EEG ordered GI - tolerating regular diet Respiratory: #Tachypnea - resolved - / respiratory compensation - 10/04 CXR shows no active pulm disease - head of bed to 30 degrees, aspiration precautions - currently saturating well off NC Psychiatry: #Suicide Attempt - per , no psych hx or hx of suicide attempt - UDS negative - poison control contacted by ED, recommended supportive care and recommended against physiostigmine at this time - 1:1 sitter - psychiatry consulted, Dr Richard- further recs appreciated, psych eval still pending as patient was sleeping when Dr Richard came to evaluate PPx: Heparin SC, SCDs, PTX Dispo: Patient remains afebrile, normotensive, normal HR, ekg is normal, AAOx3, tolerating diet, appears depressed, patient is safe to transfer to med/surg. Patient seen, case reviewed and plan approved by Dr. Harvey <Latisha Harvey - Last Filed: 10/06/18 17:49> CCU Objective - Vital Signs / Intake & Output Vital Signs (Last 4 hours): Vital Signs Temp Pulse Resp BP Pulse Ox 10/06/18 14:00 98.7 F 80 16 113/72 98 Intake and Output (Last 8hrs): Intake & Output 10/06/18 10/06/18 10/06/18 06:59 14:59 22:59 Intake Total 1460 Output Total 1 Balance 1459 Intake: IV 1200 Left Forearm 1200 Right Antecubital 0 Oral 260 Output: Urine/Stool Mix 1 - Medications Active Medications: Active Medications Generic Name Dose Route Start Last Admin Trade Name Freq PRN Reason Stop Dose Admin Heparin Sodium (Porcine) 5,000 units 10/04/18 22:00 10/06/18 14:43 Heparin SC 5,000 units Q8 TITI Administration Protocol Lorazepam 2 mg 10/04/18 16:29 Ativan IVP Q2H PRN Seizure activity Protocol Pantoprazole Sodium 40 mg 10/07/18 07:30 Protonix Ec Tab PO ACB TITI - Patient Studies Lab Studies: Lab Studies 10/06/18 10/06/18 Range/Units 05:20 05:20 WBC 5.3 D (4.5-11.0) 10^3/uL RBC 4.34 (3.5-6.1) 10^6/uL Hgb 10.3 L (12.0-16.0) g/dL Hct 33.2 L (36.0-48.0) % MCV 76.5 L (80.0-105.0) fl MCH 23.7 L (25.0-35.0) pg MCHC 31.0 (31.0-37.0) g/dl RDW 20.9 H (11.5-14.5) % Plt Count 262 (120.0-450.0) 10^3/uL MPV 8.9 (7.0-11.0) fl Neut % (Auto) 52.5 (50.0-68.0) % Lymph % (Auto) 37.4 H (22.0-35.0) % [place] % (Auto) 7.8 H (1.0-6.0) % Eos % (Auto) 1.7 (1.5-5.0) % Baso % (Auto) 0.6 (0.0-3.0) % Lymph # (Auto) 2.0 (1.2-3.4) [place] # (Auto) 0.4 (0.1-0.6) Eos # (Auto) 0.1 (0.0-0.7) Baso # (Auto) 0.03 (0.0-2.0) K/mm3 Absolute Neuts (auto) 2.77 (1.4-6.5) Sodium 138 (132-148) mmol/L Potassium 3.8 (3.6-5.0) mmol/L Chloride 109 H (98-107) mmol/L Carbon Dioxide 21 (21-33) mmol/L Anion Gap 12 (10-20) BUN 7 (7-21) mg/dL Creatinine 0.4 L (0.7-1.2) mg/dl Est GFR ( Amer) > 60 Est GFR (Non-Af Amer) > 60 Random Glucose 99 (70-110) mg/dL Calcium 8.3 L (8.4-10.5) mg/dL Phosphorus 3.0 (2.5-4.5) mg/dL Magnesium 2.1 (1.7-2.2) mg/dL Total Bilirubin 0.3 (0.2-1.3) mg/dL AST 23 (14-36) U/L ALT 16 (7-56) U/L Alkaline Phosphatase 56 (38-126) U/L Total Protein 6.6 (5.8-8.3) g/dL Albumin 3.4 (3.0-4.8) g/dL Globulin 3.2 gm/dL Albumin/Globulin Ratio 1.0 L (1.1-1.8) Laboratory Results - last 24 hr 10/06/18 10/06/18 05:20 05:20 WBC 5.3 D RBC 4.34 Hgb 10.3 L Hct 33.2 L MCV 76.5 L MCH 23.7 L MCHC 31.0 RDW 20.9 H Plt Count 262 MPV 8.9 Neut % (Auto) 52.5 Lymph % (Auto) 37.4 H [place] % (Auto) 7.8 H Eos % (Auto) 1.7 Baso % (Auto) 0.6 Lymph # (Auto) 2.0 [place] # (Auto) 0.4 Eos # (Auto) 0.1 Baso # (Auto) 0.03 Absolute Neuts (auto) 2.77 Sodium 138 Potassium 3.8 Chloride 109 H Carbon Dioxide 21 Anion Gap 12 BUN 7 Creatinine 0.4 L Est GFR ( Amer) > 60 Est GFR (Non-Af Amer) > 60 Random Glucose 99 Calcium 8.3 L Phosphorus 3.0 Magnesium 2.1 Total Bilirubin 0.3 AST 23 ALT 16 Alkaline Phosphatase 56 Total Protein 6.6 Albumin 3.4 Globulin 3.2 Albumin/Globulin Ratio 1.0 L EKG/Cardiology Studies: Cardiology / EKG Studies 10/06/18 07:00 EKG [ELECTROCARDIOGRAM] Routine Comment: Reason For Exam: QTc prolongation Critical Care Progress Note - Nutrition Nutrition: Nutrition Category Date Time Status Regular Diet [DIET] Diets 10/06/18 Lunch Ordered Addendum Addendum: 10/06/18 17:49 MICU Attending Addendum: Patient seen and examined with housestaff, case discussed on rounds. I agree with resident note above with the following additions/exceptions: 27F with depressionfound down with empty pill bottles of benadryl, Levceterizine, Montelukast, Augmentin, Prednisone, unknown dosages or tablet amount. Patient moniroed in ICU. not intubated.CTH negative. Remains afebrile, HD stable, awake, alert, protecting airway, pulse ox on RA 99% QTC madeleine Tylenol, ASA levels negative, LFTs wnl, Cr wnl today. Ok to transfer out of ICU Latisha Harvey MD Attending Pulmonary Critical Care Sleep Medicine
--- NOTE | 2018-10-06 11:12 | CARD ---
APPROVED REPORT Date of service: 10/05/2018 EKG Measurement Heart [id number] <Conclusion> Normal sinus rhythm Normal Electrocardiogram
--- NOTE | 2018-10-06 11:26 | CP.PCM.PN ---
<Mohsen Trivedi - Last Filed: 10/06/18 11:22> Subjective - Date & Time of Evaluation Date of Evaluation: 10/06/18 Time of Evaluation: 11:22 - Subjective Subjective: Mohsen Trivedi DO PGY1 - Medicine Progress Note Patient was seen and examined at bedside this morning; Significant Other and Son at bedside during evaluation No acute events reported overnight Patient denies any complaints on evaluation this morning. Denies chest pain, sob, abd pain, n/v/d/c, urinary discomfort Objective - Vital Signs/Intake and Output Vital Signs (last 24 hours): Temp Pulse Resp BP Pulse Ox 98.5 F 76 16 134/88 99 10/06/18 04:00 10/06/18 08:00 10/04/18 16:34 10/04/18 16:15 10/04/18 16:15 Intake and Output: 10/06/18 10/06/18 06:59 18:59 Intake Total 1460 Output Total 1 Balance 1459 - Medications Medications: Current Medications Heparin Sodium (Porcine) (Heparin) 5,000 units SC Q8 TITI; Protocol Last Admin: 10/06/18 06:36 Dose: Not Given Lorazepam (Ativan) 2 mg IVP Q2H PRN; Protocol PRN Reason: Seizure activity Pantoprazole Sodium (Protonix Inj) 40 mg IVP DAILY [facility] Last Admin: 10/05/18 10:33 Dose: 40 mg - Labs Labs: 10/06/18 05:20 10/06/18 05:20 - Constitutional Appears: Well, Non-toxic, No Acute Distress - Head Exam Head Exam: ATRAUMATIC, NORMOCEPHALIC - Eye Exam Eye Exam: EOMI, Normal appearance, PERRL - Respiratory Exam Respiratory Exam: Clear to Ausculation Bilateral, NORMAL BREATHING PATTERN - Cardiovascular Exam Cardiovascular Exam: RRR. absent: Murmur - GI/Abdominal Exam GI & Abdominal Exam: Soft. absent: Tenderness - Neurological Exam Neurological Exam: Alert, Awake, Oriented x3 - Psychiatric Exam Psychiatric exam: Normal Affect, Normal Mood. absent: Suicidal Ideation - Skin Skin Exam: Dry, Intact, Warm Assessment and Plan - Assessment and Plan (Free Text) Assessment: 27F w/ no significant PMH presented to [facility] on 10/05 post multiple medication overdose Plan: Suicidal Ideation / Overdose: Benadryl toxicity most likely given lethargy on presentation No longer requiring ICU monitoring - Stepdown to med/surg C/w 1:1 until seen by psych Pending psych eval / reccs Drug Induced Seizure - Resolved Spoke w/ Dr. Arreola Neurology - Sz threshold lowered due to combination + quantity of medications No seizure activity reported since initial episode in ED No further inpatient workup required from a neurology standpoint at this time. Neurology Following, appreciate reccs Toxic Metabolic Encephalopathy 2/2 Medication Overdose - Resolved Electrolyte Deficiency - Hypokalemia, Hypomagnesmia - Resolved High Anion Gap Metabolic Acidosis - Resolved DISPO: Will continue monitoring patient w/ 1:1 on med/surg Patient was seen, examined, and discussed w/ attending Dr. Hinkle at bedside this AM Mohsen Trivedi DO PGY1 Internal Medicine Front Worker <Kasandra Hinkle - Last Filed: 10/06/18 14:46> Objective - Vital Signs/Intake and Output Vital Signs (last 24 hours): Temp Pulse Resp BP Pulse Ox 98.7 F 80 16 113/72 98 10/06/18 14:00 10/06/18 14:00 10/06/18 14:00 10/06/18 14:00 10/06/18 14:00 Intake and Output: 10/06/18 10/06/18 06:59 18:59 Intake Total 1460 Output Total 1 Balance 1459 - Medications Medications: Current Medications Heparin Sodium (Porcine) (Heparin) 5,000 units SC Q8 [facility]; Protocol Last Admin: 10/06/18 06:36 Dose: Not Given Lorazepam (Ativan) 2 mg IVP Q2H PRN; Protocol PRN Reason: Seizure activity Pantoprazole Sodium (Protonix Ec Tab) 40 mg PO ACB TITI - Labs Labs: 10/06/18 05:20 10/06/18 05:20 Attending/Attestation - Attestation I have personally seen and examined this patient.: Yes I have fully participated in the care of the patient.: Yes I have reviewed all pertinent clinical information, including history, physical exam and plan: Yes Notes (Text): 10/06/18 14:40 Attending note; Patient seen and examined with resident in ICU. Patient's by the bedside. Patient is alert and awake. Still complaining of tiredness. Voice is still very low. Patient has flat affect. Not in any acute distress. Tolerating diet well. Patient is a 27 year old female with no significant past medical history presents status post multidrug overdose. 1. Multiple drug overdose; patient is currently alert and awake. Tachycardia resolved. Not in acute distress. Still with flat affect. Tolerating diet. CT head is negative for any acute findings. 2. Hypokalemia; resolved. 3. Hypomagnesemia; resolved. 4. Possible suicidal ideation; one-to-one placed. Psychiatric evaluation appreciated. Complete evaluation pending. Advised to continue one-to-one. 5. Status post seizure episode in the ER; mostly secondary to drug withdrawal. Neurology evaluation appreciated. 6. GI/DVT prophylaxis. Case discussed with ICU team in detail. Transferred to [facility] floor today. Out of bed to chair as tolerated.
[2018-10-06 14:20] VITALS: O2SAT 98
--- NOTE | 2018-10-06 16:43 | CARD ---
APPROVED REPORT Date of service: 10/06/2018 EXAM: Two-dimensional and M-mode echocardiogram with Doppler and color Doppler. INDICATION BENADRYL OVER DOSE 2D DIMENSIONS Left Atrium (2D)3.2 (1.6-4.0cm)IVSd0.9 (0.7-1.1cm) LVDd4.3 (3.9-5.9cm)PWd0.9 (0.7-1.1cm) LVDs2.7 (2.5-4.0cm)FS (%) 36.2 % LVEF (%)66.2 (>50%) M-Mode DIMENSIONS Aortic Root2.00 (2.2-3.7cm)Aortic Cusp Exc.1.70 (1.5-2.0cm) Aortic Valve AoV Peak Ynazogll276.0cm/Pablo Peak GR.9mmHg Mitral Valve MV E Usgunvdt073.0cm/sMV A Mhzkfmcw63.8cm/sE/A ratio1.6 TDI E/Lateral E'0.0E/Medial E'0.0 Tricuspid Valve TR Peak [id number]/sRAP [id number] Peak Gr.17mmHg [id number] LEFT VENTRICLE The left ventricle is normal size. There is normal left ventricular wall thickness. The left ventricular function is normal. The left ventricular ejection fraction is within the normal range. There is normal LV segmental wall motion. The left ventricular diastolic function is normal. RIGHT VENTRICLE The right ventricle is normal size. There is normal right ventricular wall thickness. The right ventricular systolic function is normal. ATRIA The left atrium size is normal. The right atrium size is normal. AORTIC VALVE The aortic valve is normal in structure. No aortic regurgitation is present. There is no aortic valvular stenosis. MITRAL VALVE The mitral valve is normal in structure. There is no mitral valve regurgitation noted. There is no mitral valve stenosis. TRICUSPID VALVE The tricuspid valve is normal in structure. There is trace to mild tricuspid regurgitation. PULMONIC VALVE There is trace pulmonic valvular regurgitation. GREAT VESSELS The aortic root is normal in size. The IVC is normal in size and collapses >50% with inspiration. PERICARDIAL EFFUSION There is no pericardial effusion. <Conclusion> There is normal left ventricular wall thickness. The left ventricular function is normal. The left ventricular ejection fraction is within the normal range. There is normal LV segmental wall motion. The left ventricular diastolic function is normal. There is trace to mild tricuspid regurgitation.
--- NOTE | 2018-10-06 17:34 | CARD ---
APPROVED REPORT Date of service: 10/06/2018 EKG Measurement Heart [id number] <Conclusion> Normal sinus rhythm Normal ECG
--- NOTE | 2018-10-06 18:53 | CON ---
DATE OF CONSULTATION: 10/06/2018 HISTORY OF PRESENT ILLNESS: In short, the patient is a 27-year-old female, was admitted on the ICU initially status post intentional overdose on Benadryl, Augmentin, prednisone. Psych consult was called for evaluation of possible suicidal attempt. Dr. Richard attempted to speak to the patient, but the patient was deeply sedated. This copywriter is seeing the patient today. The patient presented to be sleepy, easily arousable. The patient is currently on 121. The patient presented to be disengaged, withdrawn, and depressed. The patient was not forthcoming with information. The patient was just giving general statements such as she was [place] The patient said that she was having personal problems, and she had argument. Collateral information was obtained from the patient's , who is next to her. The patient's 's name is Mr. Jose A Romero. He reported that the patient had argument with someone at the morning time, and the patient refused to go to sabianism with her family. She wanted to sleep. When family came back from sabianism, the patient was found unresponsive, laying down with her eyes open, initially family thought that she had a stroke, but the patient's found a lot of empty bottles, and it was a good-bye letter saying that she is apologizing for all of her mistakes, and she said final good-bye to her family, after what the patient's family called 911. The patient reported that she was stressed out for the past 2 weeks feeling hopeless, helpless, difficult to stay focus and concentrate. The patient denied that she had suicidal ideation, and the patient had suicidal thoughts only on Friday at the morning time. The patient denied using drugs. Denied drinking alcohol. The patient denied hearing voices, denied seeing things, denied paranoid ideation. The patient does not present to be psychotic. PHYSICAL EXAMINATION: VITAL SIGNS: Reviewed. The patient has a temperature of 98.7, pulse 80, blood pressure 113/72, respirations 16, oxygen saturation is 98. MEDICATIONS: Reviewed. The patient is on heparin, Ativan, Protonix. LABORATORY DATA: Labs reviewed. Blood gas reviewed. Chemistry reviewed. Potassium was low at 2.8 at the time of admission and right now it is 3.8. Urinalysis reviewed. Toxicology reviewed. MENTAL STATUS EXAMINATION: The patient presented to be withdrawn, flat affect, disengaged, mood described as depressed. Affect was constricted and flat. Thought process concrete. Thought content, the patient denied visual, auditory, or tactile hallucinations. Denied paranoid ideation. This copywriter cannot exclude that it was suicidal attempt, even though the patient said that she wanted to sleep and relax. Insight and judgment seemed to be limited. Impulses are unpredictable. IMPRESSION: Most likely, the patient has major depressive disorder, status post possible suicidal attempt. PLAN: I will continue current management with medications. Most likely the patient would require a psych admission. This copywriter will follow up on this patient tomorrow. For now, one to one observation will be continued up until tomorrow. Should you have any questions give me a call back. The patient is not psychiatrically cleared for discharge. Mariana Murillo MD
[2018-10-07 06:59] LABS: BASO # 0.04 K/mm3 (0.0-2.0); BASO % 0.7 % (0.0-3.0); EOS # 0.2 (0.0-0.7); EOS % 2.8 % (1.5-5.0); HEMOGLOBIN 11.1 g/dL (12.0-16.0); LYMPH % 49.6 % (22.0-35.0); MEAN CELL VOLUME 76.1 fl (80.0-105.0); MEAN CORPUSCULAR HEMOGLOBIN 24.3 pg (25.0-35.0); MEAN CORPUSCULAR HGB CONC 31.9 g/dl (31.0-37.0); MONO # 0.4 (0.1-0.6); MONO % 6.1 % (1.0-6.0); RBC 4.57 10^6/uL (3.5-6.1); RED CELL DISTRIBUTION WIDTH 20.4 % (11.5-14.5)
[2018-10-07 07:06] LABS: BLOOD UREA NITROGEN 9 mg/dL (7-21); GFR NON-AFRICAN AMERICAN > 60
[2018-10-07 07:07] LABS: ALB/GLOB RATIO 1.1 (1.1-1.8); ALBUMIN 3.9 g/dL (3.0-4.8); ALT/SGPT 14 U/L (7-56); AST/SGOT 24 U/L (14-36); CALCIUM 9.1 mg/dL (8.4-10.5)
[2018-10-07] MEDS ORDERED: Pantoprazole 40 mg EC Tab PO SCH (07:30)
--- NOTE | 2018-10-07 17:45 | CP.PCM.PN ---
<FarooqMohsen - Last Filed: 10/07/18 22:10> Subjective - Date & Time of Evaluation Date of Evaluation: 10/07/18 Time of Evaluation: 09:00 - Subjective Subjective: Mohsen Andersonel DO PGY1 - Medicine Progress Note Pt. seen and examined at bedside this AM ; present. During evaluation this AM; patient's was asked to leave and care team HABITAT BIOLOGIST - Levar was able to speak with patient. Patient again expressed she wanted to kill herself as her intention for overdose. Patient was explained she was medically clear for discharge however discharge not possible without psych clearance. She was explained process moving forward regarding voluntary psych admission vs involuntary commitment via [facility] psych screeners. Pt. expressed this AM she does not want to harm her self. She voices no complaints upon evaluation this AM; no cp, sob, abd pain, n/v/d/c, urinary discomfort. Objective - Vital Signs/Intake and Output Vital Signs (last 24 hours): Temp Pulse Resp BP Pulse Ox 98.1 F 81 16 112/68 98 10/07/18 14:00 10/07/18 14:00 10/07/18 14:00 10/07/18 14:00 10/07/18 14:00 - Medications Medications: Current Medications Heparin Sodium (Porcine) (Heparin) 5,000 units SC Q8 [facility]; Protocol Last Admin: 10/07/18 13:19 Dose: Not Given Lorazepam (Ativan) 2 mg IVP Q2H PRN; Protocol PRN Reason: Seizure activity Pantoprazole Sodium (Protonix Ec Tab) 40 mg PO ACB [facility] Last Admin: 10/07/18 10:04 Dose: 40 mg - Labs Labs: 10/07/18 06:30 10/07/18 06:30 - Constitutional Appears: Well, Non-toxic, No Acute Distress - Head Exam Head Exam: ATRAUMATIC, NORMOCEPHALIC - Eye Exam Eye Exam: EOMI, Normal appearance, PERRL - Respiratory Exam Respiratory Exam: Clear to Ausculation Bilateral, NORMAL BREATHING PATTERN - Cardiovascular Exam Cardiovascular Exam: RRR. absent: Murmur - GI/Abdominal Exam GI & Abdominal Exam: Soft. absent: Tenderness - Neurological Exam Neurological Exam: Alert, Awake, Oriented x3 - Psychiatric Exam Psychiatric exam: Normal Affect, Normal Mood. absent: Suicidal Ideation - Skin Skin Exam: Dry, Intact, Warm Assessment and Plan - Assessment and Plan (Free Text) Assessment: 27F w/ no significant PMH presented to [facility] on 10/05 post multiple medication overdose Plan: Suicidal Ideation / Benadryl OVerdose Medically stabilized at this time; VSS; Labs Stable Did not want to undergo voluntary admission; pending [facility] psych clearance C/w 1:1 until discontinued by psych Pending [facility] psych clearance Drug Induced Seizure - Resolved - No inpatient Neuro workup Toxic Metabolic Encephalopathy 2/2 Medication Overdose - Resolved Electrolyte Deficiency - Hypokalemia, Hypomagnesmia - Resolved High Anion Gap Metabolic Acidosis - Resolved DISPO: Will continue monitoring patient w/ 1:1 on med/surg Patient was seen, examined, and discussed w/ attending Dr. Hinkle at bedside this AM Mohsen Trivedi DO PGY1 Internal Medicine [employer] <Kasandra Hinkle - Last Filed: 10/08/18 16:56> Objective - Vital Signs/Intake and Output Vital Signs (last 24 hours): Temp Pulse Resp BP Pulse Ox 98.1 F 77 16 94/55 L 98 10/08/18 13:36 10/08/18 13:36 10/08/18 13:36 10/08/18 13:36 10/08/18 13:36 - Labs Labs: 10/08/18 06:30 10/08/18 06:30 Attending/Attestation - Attestation I have personally seen and examined this patient.: Yes I have fully participated in the care of the patient.: Yes I have reviewed all pertinent clinical information, including history, physical exam and plan: Yes Notes (Text): 10/08/18 16:53 Attending note; Patient seen and examined with resident. Translation by the nurse practitioner taking care of the patient. Patient is alert and awake. Denies any chest pain, shortness of breath, abdominal pain. Tolerating diet well. Ambulating without difficulty. Patient is a 27 year old female with no significant past medical history presents status post multidrug overdose. 1. Multiple drug overdose; suicidal attempt ;patient is currently alert and awake. Patient was evaluated by psychiatrist. Patient refused to go to the psychiatric floor for voluntary admission. We will get [facility] involuntary commitment psychiatric evaluation. continue one-to-one. DVT GI prophylaxis. Monitor closely. Pending [facility] evaluation. Diagnosis and discharge plan discussed with patient and patient's in detail.
--- NOTE | 2018-10-07 21:12 | PN ---
DATE: 10/07/2018 SUBJECTIVE: The patient is a 27-year-old [place] female, the patient initially was admitted on ICU, status post intentional overdose of Benadryl, Augmenti, and prednisone. Psych consult was called for evaluation of possible suicidal attempt. Dr. Richard attempted to speak to the patient, but the patient was deeply sedated. This investment underwriter evaluated the patient yesterday, 10/06/2018. Please see initial note for more detailed information. The patient made it clear that she wanted to end up her life. The patient overdosed on multiple medication left. The patient choose the time when her family went to the baptism. The patient also wrote good-bye letter. At present moment, the patient seems to be remorseful, but flat. The patient said that right now she feels that she does not want to any longer. This investment underwriter offered admission to the psychiatric inpatient unit. The patient declined that offer. Collaterals were obtained from the patient's , Jose A Romero and her family were educated about voluntary admission and possible screening by [facility] for involuntary commitment. The patient did not want to sign herself in and this investment underwriter will initiate the screening process. OBJECTIVE: VITAL SIGNS: Reviewed. MENTAL STATUS EXAM: The patient presented to be alert, superficially cooperative, and pleasant. Mood described as okay. Affect was flat. Thought process concrete. Thought content, the patient denied visual, auditory, or tactile hallucinations. Denied paranoid ideation. The patient is status post suicidal attempt. The patient denied any other thoughts of harming herself right now, but this is doubtful. Insight and judgment seems to be limited. Impulses are unpredictable. MEDICATIONS: Reviewed. LABORATORY DATA: Reviewed. IMPRESSION: Rule out major depressive disorder, rule out status post suicidal attempt. PLAN: This investment underwriter would recommend psychiatric admission, but the patient declined that offer. We will start screening process by [facility]. Should you have any questions, give me a call back. Thank you very much for letting me to participate in the care of your patient. Mariana Murillo MD
[2018-10-08 06:47] LABS: BASO # 0.03 K/mm3 (0.0-2.0); BASO % 0.5 % (0.0-3.0); EOS # 0.2 (0.0-0.7); EOS % 3.1 % (1.5-5.0); HEMOGLOBIN 11.5 g/dL (12.0-16.0); LYMPH # 2.9 (1.2-3.4); LYMPH % 44.8 % (22.0-35.0); MEAN CELL VOLUME 75.9 fl (80.0-105.0); MEAN CORPUSCULAR HEMOGLOBIN 24.3 pg (25.0-35.0); MONO # 0.4 (0.1-0.6); MONO % 6.2 % (1.0-6.0); RBC 4.73 10^6/uL (3.5-6.1); RED CELL DISTRIBUTION WIDTH 19.7 % (11.5-14.5); WHITE BLOOD COUNT 6.4 10^3/uL (4.5-11.0)
[2018-10-08 07:27] LABS: ALB/GLOB RATIO 1.2 (1.1-1.8); ALBUMIN 4.2 g/dL (3.0-4.8); ALT/SGPT 18 U/L (7-56); AST/SGOT 24 U/L (14-36); BLOOD UREA NITROGEN 10 mg/dL (7-21); CALCIUM 9.5 mg/dL (8.4-10.5); GFR NON-AFRICAN AMERICAN > 60
[2018-10-08 13:36] VITALS: BP 94/55; PULSE 77; RESP 16; TEMP 98.1
--- NOTE | 2018-10-08 18:39 | CP.PCM.DIS ---
<Mohsen Trivedi - Last Filed: 10/08/18 18:17> Provider - Provider Date of Admission: 10/04/18 16:02 Attending physician: Kasandra Hinkle MD Primary care physician: Lobito Mckeon Consults: 10/04/18 16:27 Neurology Consult Routine Comment: Consulting Provider: Rocco Goode Consulting Physician: Rocco Goode Reason for Consult: bendaryl overdose; seizure activity Psychiatry Consult Routine Comment: Consulting Provider: Abhinav Richard Consulting Physician: Abhinav Richard Reason for Consult: suicide attempted Time Spent in preparation of Discharge (in minutes): 45 Diagnosis - Discharge Diagnosis (1) Suicide attempt by multiple drug overdose Status: Acute (2) Diphenhydramine overdose Status: Acute (3) Seizure Status: Acute Hospital Course - Lab Results Lab Results: Most Recent Lab Values WBC 6.4 10^3/uL (4.5-11.0) 10/08/18 06:30 RBC 4.73 10^6/uL (3.5-6.1) 10/08/18 06:30 Hgb 11.5 g/dL (12.0-16.0) L 10/08/18 06:30 Hct 35.9 % (36.0-48.0) L 10/08/18 06:30 MCV 75.9 fl (80.0-105.0) L 10/08/18 06:30 MCH 24.3 pg (25.0-35.0) L 10/08/18 06:30 MCHC 32.0 g/dl (31.0-37.0) 10/08/18 06:30 RDW 19.7 % (11.5-14.5) H 10/08/18 06:30 Plt Count 307 10^3/uL (120.0-450.0) 10/08/18 06:30 MPV 9.0 fl (7.0-11.0) 10/08/18 06:30 Neut % (Auto) 45.4 % (50.0-68.0) L 10/08/18 06:30 Lymph % (Auto) 44.8 % (22.0-35.0) H 10/08/18 06:30 [place] % (Auto) 6.2 % (1.0-6.0) H 10/08/18 06:30 Eos % (Auto) 3.1 % (1.5-5.0) 10/08/18 06:30 Baso % (Auto) 0.5 % (0.0-3.0) 10/08/18 06:30 Lymph # (Auto) 2.9 (1.2-3.4) 10/08/18 06:30 [place] # (Auto) 0.4 (0.1-0.6) 10/08/18 06:30 Eos # (Auto) 0.2 (0.0-0.7) 10/08/18 06:30 Baso # (Auto) 0.03 K/mm3 (0.0-2.0) 10/08/18 06:30 Absolute Neuts (auto) 2.91 (1.4-6.5) 10/08/18 06:30 pCO2 28 mm/Hg (35-45) L 10/04/18 15:05 pO2 48 mm/Hg (30-55) 10/04/18 19:55 HCO3 13.5 mmol/L (21-28) L 10/04/18 15:05 ABG pH 7.29 (7.35-7.45) L 10/04/18 15:05 ABG Total CO2 14.4 mmol.L (22-28) L 10/04/18 15:05 ABG O2 Saturation 98.4 % (95-98) H 10/04/18 15:05 ABG Base Excess -11.6 mmol/L (-2.0-3.0) L 10/04/18 15:05 ABG Potassium 2.7 mmol/L (3.6-5.2) L 10/04/18 15:05 VBG pH 7.41 (7.32-7.43) 10/04/18 19:55 VBG pCO2 39.0 (40-60) L 10/04/18 19:55 VBG HCO3 24.7 mmol/l (21-28) 10/04/18 19:55 VBG Total CO2 25.9 mmol.L (22-28) 10/04/18 19:55 VBG O2 Sat (Calc) 83.7 % (40-65) H 10/04/18 19:55 VBG Base Excess 0.1 mmol/L (0.0-2.0) 10/04/18 19:55 VBG Potassium 3.0 mmol/L (3.6-5.2) L 10/04/18 19:55 Sodium 143.0 mmol/L (132-148) 10/04/18 19:55 Chloride 111.0 mmol/L (98-107) H 10/04/18 19:55 Glucose 107 mg/dl (65-105) H 10/04/18 19:55 Lactate 1.7 mmol/L (0.7-2.1) 10/04/18 19:55 FiO2 21.0 % 10/04/18 19:55 Crit Value Called To Tasha awad 10/04/18 15:05 Crit Value Called By eMaghan hernandez 10/04/18 15:05 Blood Gas Notified Time 1527 10/04/18 15:05 Sodium 139 mmol/L (132-148) 10/08/18 06:30 Potassium 4.0 mmol/L (3.6-5.0) 10/08/18 06:30 Chloride 104 mmol/L (98-107) 10/08/18 06:30 Carbon Dioxide 26 mmol/L (21-33) 10/08/18 06:30 Anion Gap 14 (10-20) 10/08/18 06:30 BUN 10 mg/dL (7-21) 10/08/18 06:30 Creatinine 0.5 mg/dl (0.7-1.2) L 10/08/18 06:30 Est GFR ( Amer) > 60 10/08/18 06:30 Est GFR (Non-Af Amer) > 60 10/08/18 06:30 POC Glucose (mg/dL) 108 mg/dL (65-110) 10/04/18 15:26 Random Glucose 96 mg/dL (70-110) 10/08/18 06:30 Calcium 9.5 mg/dL (8.4-10.5) 10/08/18 06:30 Phosphorus 3.0 mg/dL (2.5-4.5) 10/06/18 05:20 Magnesium 2.1 mg/dL (1.7-2.2) 10/06/18 05:20 Iron 56 ug/dL (45-180) 10/05/18 07:15 TIBC 371 ug/dL (265-497) 10/05/18 07:15 % Saturation 15 % (20-55) L 10/05/18 07:15 Ferritin 21.0 ng/mL 10/05/18 07:15 Total Bilirubin 0.3 mg/dL (0.2-1.3) 10/08/18 06:30 AST 24 U/L (14-36) 10/08/18 06:30 ALT 18 U/L (7-56) 10/08/18 06:30 Alkaline Phosphatase 59 U/L (38-126) 10/08/18 06:30 Total Creatine Kinase 129 U/L (35-230) 10/05/18 01:16 Total Protein 7.7 g/dL (5.8-8.3) 10/08/18 06:30 Albumin 4.2 g/dL (3.0-4.8) 10/08/18 06:30 Globulin 3.6 gm/dL 10/08/18 06:30 Albumin/Globulin Ratio 1.2 (1.1-1.8) 10/08/18 06:30 Arterial Blood Potassium 2.7 mmol/L (3.6-5.2) L 10/04/18 15:05 Venous Blood Potassium 3.0 mmol/L (3.6-5.2) L 10/04/18 19:55 Urine Color Yellow (YELLOW) 10/04/18 14:45 Urine Appearance Clear (CLEAR) 10/04/18 14:45 Urine pH 7.0 (4.7-8.0) 10/04/18 14:45 Ur Specific [place] >= 1.030 (1.005-1.035) 10/04/18 14:45 Urine Protein >=300 mg/dL (<30 mg/dL) H 10/04/18 14:45 Urine Glucose (UA) Negative mg/dL (NEGATIVE) 10/04/18 14:45 Urine Ketones 15 mg/dL (NEGATIVE) H 10/04/18 14:45 Urine Blood Negative (NEGATIVE) 10/04/18 14:45 Urine Nitrate Negative (NEGATIVE) 10/04/18 14:45 Urine Bilirubin Small (NEGATIVE) H 10/04/18 14:45 Urine Urobilinogen 4.0 E.U./dL (<1 E.U./dL) H 10/04/18 14:45 Ur Leukocyte Esterase Negative Favian/uL (NEGATIVE) 10/04/18 14:45 Urine RBC 0 - 2 /hpf (0-2) 10/04/18 14:45 Urine WBC 0 - 2 /hpf (0-6) 10/04/18 14:45 Ur Epithelial Cells 1 - 3 /hpf (0-5) 10/04/18 14:45 Urine Bacteria Few /hpf (NONE) 10/04/18 14:45 Urine Other Mucus /hpf 10/04/18 14:45 Urine HCG, Qual Negative (NEGATIVE) 10/04/18 14:45 Salicylates < 1 mg/dL (2.0-20.0) L 10/04/18 14:30 Urine Opiates Screen Negative (NEGATIVE) 10/04/18 14:45 Urine Methadone Screen Negative (NEGATIVE) 10/04/18 14:45 Acetaminophen < 10.0 ug/ml (10.0-20.0) L 10/04/18 14:30 Ur Barbiturates Screen Negative (NEGATIVE) 10/04/18 14:45 Ur Phencyclidine Scrn Negative (NEGATIVE) 10/04/18 14:45 Ur Amphetamines Screen Negative (NEGATIVE) 10/04/18 14:45 U Benzodiazepines Scrn Negative (NEGATIVE) 10/04/18 14:45 U Oth Cocaine Metabols Negative (NEGATIVE) 10/04/18 14:45 U Cannabinoids Screen Negative (NEGATIVE) 10/04/18 14:45 Alcohol, Quantitative < 10 mg/dL (0-10) 10/04/18 14:30 - Hospital Course Hospital Course: Mohsen Trivedi DO PGy1 Hospitalist DC Summary 27 year old female with no relevant past medical history presents status post multidrug overdose. Medications included benadryl, levocetirizine 5 mg, montelukast 10 mg, augmentin 500 mg, prednisone 10 mg. Patient was noted to have seizure while in ED. Neurology Consulted, Psych Consulted, Poison Control was contacted. She was subsequently stabilized and transferred to ICU for further care upon admission. Patient was able to protect airway and did not require intubation. Poison control recommended only syptomatic / supportive care. 1:1 sitter was maintained until patient could be evaluated by psych. No further seizure episodes reported while admitted; Neurology recommended no further inpatient management. CT Head performed in ED was negative for acute intracranial pathology. Patient's liver and kidney function monitored - noted to be stable w/o hepatoxicity or renal toxicity. Psych evaluated patient who recommended inpatient admission - patient initially refused voluntary psych admission however, at this time she is agreeing to be admitted to voluntary psych unit [facility] Prior to discharge, Patient was seen and examined at bedside No complaints voiced at bedside this morning. She understands the plan moving forward; and understands follow up plan upon discharge. Patient was seen, examined, and discussed w/ attending Dr. hinkle Discharge Exam - Head Exam Head Exam: ATRAUMATIC, NORMOCEPHALIC - Eye Exam Eye Exam: EOMI, Normal appearance, PERRL - Respiratory Exam Respiratory Exam: Clear to PA & Lateral, NORMAL BREATHING PATTERN - Cardiovascular Exam Cardiovascular Exam: RRR. absent: Systolic Murmur - GI/Abdominal Exam GI & Abdominal Exam: Normal Bowel Sounds, Unremarkable - Extremities Exam Extremities exam: normal capillary refill, pedal pulses present - Neurological Exam Neurological exam: Alert, CN II-XII Intact, Oriented x3 - Psychiatric Exam Psychiatric exam: Normal Affect, Normal Mood - Skin Skin Exam: Dry, Intact, Normal Color, Warm Discharge Plan - Follow Up Plan Condition: STABLE Disposition: DISCHARGE TO PSYCH HOSPITAL Instructions: Seizures, Adult (DC), Polysubstance Abuse (DC) Additional Instructions: Please follow up with your primary care doctor Dr. Lobito Mckeon within 3-5 days of discharge Please take your medications as prescribed If you begin experiencing thoughts of depression/ suicide or new concerning symptoms arise, please call 911 immediately or go to the nearest emergency department immediately Referrals: Mike Robin MD [Family Provider] - <Kasandra Hinkle - Last Filed: 10/09/18 16:56> Provider - Provider Date of Admission: 10/04/18 16:02 Attending physician: Kasandra Hinkle MD Consults: 10/04/18 16:27 Neurology Consult Routine Comment: Consulting Provider: Rocco Goode Consulting Physician: Rocco Goode Reason for Consult: bendaryl overdose; seizure activity Psychiatry Consult Routine Comment: Consulting Provider: Abhinav Richard Consulting Physician: Abhinav Richard Reason for Consult: suicide attempted Hospital Course - Lab Results Lab Results: Most Recent Lab Values WBC 6.4 10^3/uL (4.5-11.0) 10/08/18 06:30 RBC 4.73 10^6/uL (3.5-6.1) 10/08/18 06:30 Hgb 11.5 g/dL (12.0-16.0) L 10/08/18 06:30 Hct 35.9 % (36.0-48.0) L 10/08/18 06:30 MCV 75.9 fl (80.0-105.0) L 10/08/18 06:30 MCH 24.3 pg (25.0-35.0) L 10/08/18 06:30 MCHC 32.0 g/dl (31.0-37.0) 10/08/18 06:30 RDW 19.7 % (11.5-14.5) H 10/08/18 06:30 Plt Count 307 10^3/uL (120.0-450.0) 10/08/18 06:30 MPV 9.0 fl (7.0-11.0) 10/08/18 06:30 Neut % (Auto) 45.4 % (50.0-68.0) L 10/08/18 06:30 Lymph % (Auto) 44.8 % (22.0-35.0) H 10/08/18 06:30 [place] % (Auto) 6.2 % (1.0-6.0) H 10/08/18 06:30 Eos % (Auto) 3.1 % (1.5-5.0) 10/08/18 06:30 Baso % (Auto) 0.5 % (0.0-3.0) 10/08/18 06:30 Lymph # (Auto) 2.9 (1.2-3.4) 10/08/18 06:30 [place] # (Auto) 0.4 (0.1-0.6) 10/08/18 06:30 Eos # (Auto) 0.2 (0.0-0.7) 10/08/18 06:30 Baso # (Auto) 0.03 K/mm3 (0.0-2.0) 10/08/18 06:30 Absolute Neuts (auto) 2.91 (1.4-6.5) 10/08/18 06:30 pCO2 28 mm/Hg (35-45) L 10/04/18 15:05 pO2 48 mm/Hg (30-55) 10/04/18 19:55 HCO3 13.5 mmol/L (21-28) L 10/04/18 15:05 ABG pH 7.29 (7.35-7.45) L 10/04/18 15:05 ABG Total CO2 14.4 mmol.L (22-28) L 10/04/18 15:05 ABG O2 Saturation 98.4 % (95-98) H 10/04/18 15:05 ABG Base Excess -11.6 mmol/L (-2.0-3.0) L 10/04/18 15:05 ABG Potassium 2.7 mmol/L (3.6-5.2) L 10/04/18 15:05 VBG pH 7.41 (7.32-7.43) 10/04/18 19:55 VBG pCO2 39.0 (40-60) L 10/04/18 19:55 VBG HCO3 24.7 mmol/l (21-28) 10/04/18 19:55 VBG Total CO2 25.9 mmol.L (22-28) 10/04/18 19:55 VBG O2 Sat (Calc) 83.7 % (40-65) H 10/04/18 19:55 VBG Base Excess 0.1 mmol/L (0.0-2.0) 10/04/18 19:55 VBG Potassium 3.0 mmol/L (3.6-5.2) L 10/04/18 19:55 Sodium 143.0 mmol/L (132-148) 10/04/18 19:55 Chloride 111.0 mmol/L (98-107) H 10/04/18 19:55 Glucose 107 mg/dl (65-105) H 10/04/18 19:55 Lactate 1.7 mmol/L (0.7-2.1) 10/04/18 19:55 FiO2 21.0 % 10/04/18 19:55 Crit Value Called To Tasha awad 10/04/18 15:05 Crit Value Called By Meaghan hernandez 10/04/18 15:05 Blood Gas Notified Time 1527 10/04/18 15:05 Sodium 139 mmol/L (132-148) 10/08/18 06:30 Potassium 4.0 mmol/L (3.6-5.0) 10/08/18 06:30 Chloride 104 mmol/L (98-107) 10/08/18 06:30 Carbon Dioxide 26 mmol/L (21-33) 10/08/18 06:30 Anion Gap 14 (10-20) 10/08/18 06:30 BUN 10 mg/dL (7-21) 10/08/18 06:30 Creatinine 0.5 mg/dl (0.7-1.2) L 10/08/18 06:30 Est GFR ( Amer) > 60 10/08/18 06:30 Est GFR (Non-Af Amer) > 60 10/08/18 06:30 POC Glucose (mg/dL) 108 mg/dL (65-110) 10/04/18 15:26 Random Glucose 96 mg/dL (70-110) 10/08/18 06:30 Calcium 9.5 mg/dL (8.4-10.5) 10/08/18 06:30 Phosphorus 3.0 mg/dL (2.5-4.5) 10/06/18 05:20 Magnesium 2.1 mg/dL (1.7-2.2) 10/06/18 05:20 Iron 56 ug/dL (45-180) 10/05/18 07:15 TIBC 371 ug/dL (265-497) 10/05/18 07:15 % Saturation 15 % (20-55) L 10/05/18 07:15 Ferritin 21.0 ng/mL 10/05/18 07:15 Total Bilirubin 0.3 mg/dL (0.2-1.3) 10/08/18 06:30 AST 24 U/L (14-36) 10/08/18 06:30 ALT 18 U/L (7-56) 10/08/18 06:30 Alkaline Phosphatase 59 U/L (38-126) 10/08/18 06:30 Total Creatine Kinase 129 U/L (35-230) 10/05/18 01:16 Total Protein 7.7 g/dL (5.8-8.3) 10/08/18 06:30 Albumin 4.2 g/dL (3.0-4.8) 10/08/18 06:30 Globulin 3.6 gm/dL 10/08/18 06:30 Albumin/Globulin Ratio 1.2 (1.1-1.8) 10/08/18 06:30 Arterial Blood Potassium 2.7 mmol/L (3.6-5.2) L 10/04/18 15:05 Venous Blood Potassium 3.0 mmol/L (3.6-5.2) L 10/04/18 19:55 Urine Color Yellow (YELLOW) 10/04/18 14:45 Urine Appearance Clear (CLEAR) 10/04/18 14:45 Urine pH 7.0 (4.7-8.0) 10/04/18 14:45 Ur Specific [place] >= 1.030 (1.005-1.035) 10/04/18 14:45 Urine Protein >=300 mg/dL (<30 mg/dL) H 10/04/18 14:45 Urine Glucose (UA) Negative mg/dL (NEGATIVE) 10/04/18 14:45 Urine Ketones 15 mg/dL (NEGATIVE) H 10/04/18 14:45 Urine Blood Negative (NEGATIVE) 10/04/18 14:45 Urine Nitrate Negative (NEGATIVE) 10/04/18 14:45 Urine Bilirubin Small (NEGATIVE) H 10/04/18 14:45 Urine Urobilinogen 4.0 E.U./dL (<1 E.U./dL) H 10/04/18 14:45 Ur Leukocyte Esterase Negative Favian/uL (NEGATIVE) 10/04/18 14:45 Urine RBC 0 - 2 /hpf (0-2) 10/04/18 14:45 Urine WBC 0 - 2 /hpf (0-6) 10/04/18 14:45 Ur Epithelial Cells 1 - 3 /hpf (0-5) 10/04/18 14:45 Urine Bacteria Few /hpf (NONE) 10/04/18 14:45 Urine Other Mucus /hpf 10/04/18 14:45 Urine HCG, Qual Negative (NEGATIVE) 10/04/18 14:45 Salicylates < 1 mg/dL (2.0-20.0) L 10/04/18 14:30 Urine Opiates Screen Negative (NEGATIVE) 10/04/18 14:45 Urine Methadone Screen Negative (NEGATIVE) 10/04/18 14:45 Acetaminophen < 10.0 ug/ml (10.0-20.0) L 10/04/18 14:30 Ur Barbiturates Screen Negative (NEGATIVE) 10/04/18 14:45 Ur Phencyclidine Scrn Negative (NEGATIVE) 10/04/18 14:45 Ur Amphetamines Screen Negative (NEGATIVE) 10/04/18 14:45 U Benzodiazepines Scrn Negative (NEGATIVE) 10/04/18 14:45 U Oth Cocaine Metabols Negative (NEGATIVE) 10/04/18 14:45 U Cannabinoids Screen Negative (NEGATIVE) 10/04/18 14:45 Alcohol, Quantitative < 10 mg/dL (0-10) 10/04/18 14:30 Attending/Attestation - Attestation I have personally seen and examined this patient.: Yes I have fully participated in the care of the patient.: Yes I have reviewed all pertinent clinical information, including history, physical exam and plan: Yes Notes (Text): 10/09/18 16:54 Attending note; Patient seen and examined with resident Patient is alert and awake. Denies any chest pain, shortness of breath, abdominal pain. Tolerating diet well. Ambulating without difficulty. Patient is a 27 year old female with no significant past medical history presents status post multidrug overdose. 1. Multiple drug overdose; suicidal attempt ;patient is currently alert and awake. Patient was evaluated by psychiatrist. Patient refused to go to the psychiatric floor for voluntary admission. [place] [facility] [place]. continue one-to-one. Patient agreed to go to for voluntary psych treatment. Transfer to when bed available. Diagnosis and discharge plan discussed with patient and patient's in detail.
--- NOTE | 2018-10-08 21:31 | PN ---
DATE: 10/08/2018 SUBJECTIVE: Yesterday, the patient was screened by [facility]. The patient was accepted for screening. Right now, the patient wants to stay in the hospital and complete treatment under voluntary status here in [place]. Unfortunately, we do not have any beds available, but few discharges took place and this mortgage loan underwriter is willing to accept the patient for further evaluation and stabilization shortly. The patient is status post suicidal attempt. The patient overdosed on multiple medications including prednisone. The patient wrote a good-bye letter to her family including her and 9-year-old child and at present moment, the patient requires further hospitalization and stabilization. OBJECTIVE: Vital signs reviewed. Medications reviewed. Discussed with the primary care physician, Dr. Hinkle. MENTAL STATUS EXAMINATION: The patient presented to be depressed, withdrawn. Mood is described as okay. Affect was flat. Thought process seems to be concrete. Thought content; the patient is status post suicidal attempt, but right now, the patient denied thoughts of harming herself. The patient denied any psychotic symptoms. Insight and judgment seems to be limited. Impulses are unpredictable. IMPRESSION: Rule out major depressive disorder, rule out adjustment disorder, rule out impulse control disorder. PLAN: The patient will be transferred to the Psychiatric Inpatient Unit. The patient will be stabilized on medications and antidepressant. The patient will have therapeutic milieu and medication management and supportive therapy. Family will be involved. Should you have any questions give me a call back. If the patient for whatever reason refuses to sign in TSR and sign herself into the Psychiatric Inpatient Unit, we will pursue involuntary commitment screening. Thank you very much for letting me participate in the care of your patient. Should you have any questions give me a call back. Mariana Murillo MD
== END 2018-10-08 19:25 | DRG 917 ==
LOC: ED 14:22 → ERH 16:02 → CCU 17:06 → 5RNO 10-06 12:12
PROVIDERS: ADMIT Internal Medicine; ATTEND Internal Medicine
DX: T45.0X2A Poisoning by antiallergic and antiemetic drugs, intentional self-harm, initial encounter (principal); G92 Toxic encephalopathy; R45.851 Suicidal ideations; E87.2 Acidosis; R56.9 Unspecified convulsions; R00.0 Tachycardia, unspecified; E87.6 Hypokalemia; F32.9 Major depressive disorder, single episode, unspecified; E86.0 Dehydration; T44.3X2A Poisoning by other parasympatholytics [anticholinergics and antimuscarinics] and spasmolytics, intentional self-harm, initial encounter; T36.0X2A Poisoning by penicillins, intentional self-harm, initial encounter; E83.42 Hypomagnesemia; R06.82 Tachypnea, not elsewhere classified; F43.20 Adjustment disorder, unspecified; F63.9 Impulse disorder, unspecified

== ENCOUNTER 2018-10-08 16:58 | Inpatient (IN) | payer BC ==
[2018-10-08 19:20] VITALS: BMI 20.1
--- NOTE | 2018-10-08 23:44 | PCM.BM ---
<Annabelle Ruggiero - Last Filed: 10/08/18 23:41> Treatment Plan Problems - Problems identified on initial assessmt suicidal ideation Date Initiated: 10/08/18 Time Initiated: 23:42 Assessment reference: NA Status: Active ineffective coping Date Initiated: 10/08/18 Time Initiated: 23:43 Assessment reference: NA Status: Active fellings of worthlessness Date Initiated: 10/08/18 Time Initiated: 23:43 Assessment reference: NA Status: Active Treatment assets and liabiliti Patient Assests: adapts well, cooperative, educated, motivated, ADL independent, physically healthy, cognitively intact Patient Liabilities: relationship conflicts - Milieu Protocol Maintain good personal hygiene: daily Encourage regular showers, daily Remind patient to perform daily oral care Conduct patient checks and document Observation sheet: Q15 minutes Maintain personal safety: every shift Educate patient to report safety concerns to staff, every shift Monitor environment for contraband/sharps Medication safety: Monitor for expected outcome, potential side effects: every shift, Assess barriers to learning: every shift, Assess readiness for medication education: every shift Family Contact Family involvement: Patient does not wish Family/SO involvement Discharge/Continuing Care - Education Needs Education Needs: Patient Medication, Patient Diagnosis/Disease Process, Patient Coping Skills, Patient Health Practices/Safety, Patient Aftercare Safety Plan - Discharge Discharge Criteria: Tolerates medication w/o severe side effects, Free of Suicidal thoughts, Normal sleep pattern, Reduction of target symptoms Discharge to:: Home <Mariana Murillo - Last Filed: 10/09/18 13:32> - Diagnosis (1) MDD (major depressive disorder) Status: Acute Interventions: 10/09/18 13:32 Psychoeducation Psychopharmacology/adjustment of medications as needed/ monitoring possible side effects Evaluate pt on daily basis Compliance with medications and follow up appointments Suicide and homicide risk assessment and prevention Relapse prevention Reduction of symptoms Improve functional status Family involvement As outpatient: cognitive behavioral therapy <Nicolette Meyer - Last Filed: 10/09/18 16:58>
[2018-10-09 07:59] LABS: HDL CHOLESTEROL 29 mg/dL (29-60)
[2018-10-09 08:10] LABS: LDL CHOLESTEROL 98 mg/dL (0-129)
--- NOTE | 2018-10-09 13:32 | PCM.PSYCH ---
Initial Psychiatric Evaluation - Initial Psychiatric Evaluation Type of Admission: Voluntary Legal Status: Capacity Chief Complaint (in patient's own words): "I think it was a mistake.." Patient's Reaction to Hospitalization: pt was transferred from the medical site s/p intentional overdose on meds, sp suicidal attempt. History of Present Illness and Precipitating Events: Patient is 27 y/o female with not known previous psychiatric history, patient denied ever being admitted to the psychiatric inpatient unit, patient denied any psychiatric history, pt was admitted to ICU status post intentional overdose on multiple medications (Benadryl, Levceterizine, Montelukast, Augmentin, Prednisone), was stabilized, downgraded to the medical site, on the medical site pt refused to sign herself to the psychiatric inpatient unit, was screened by [facility], was found to be committable, but patient changed her mind, willing to be admitted to the psychiatric inpatient unit and complete the treatment under voluntary status. Patient was seen and examined today at the treatment team meeting, patient presentedtransfer was uneventful yesterday. as per staff pt was refusing to take medications, pt still does not believe that she needs to stay in the hospital, pt is guarded, seclusive, disengaged, poor insight and judgment, impulses tentative. With acceptable personal hygiene, seems to be depressed and disengaged, guarded especially when was asked about her family and "personal conflict" with her friend. pt had fair ADLs. This sign writer letterer or painter is very familiar with this patient from CL service on the medical site. 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 pt also reported that she was 1 of her friends has "personal conflict" and it is related to the money person" to the patient. Patient reported that her friend goes "thousands of dollars" pt had an argument on Friday, October 04, at the morning on October 05 pt's family went to buddhism, pt refused to go, while pt's and their 9yo son were in buddhism pt overdosed on multiple medications, pt wrote a good by letter, apologizing for "all mistakes" she did. collaterals from pt's were obtained on the medical site. on the medical site pt presented to be guarded, not willing to participate in interview, but said that she was "stressed out." pt was feeling indifferent if she is alive or . pt also seems to be disengaged. in regards of medical issues, pt's suicidal attempt in ED pt had seizures, and required ICU admission. -Status post 3 L of IV fluids -Started 1/2 NS with 3 Amp of bicarb -Start ativan 2 mg Q2 PRN for seizures pt reported that she was depressed, hopeless and helpless for the past two weeks. pt denied feeling anxious. pt denied ever been abused in her life. pt denied using any drugs. pt denied smoking. pt denied hearing voices or seeing things. psych h/o: denied medical h/o: pt reported being healthy family h/o: pt denied family h/o mental illness Lab Results 10/09/18 07:30: Hemoglobin A1c 6.0 10/09/18 07:30: Triglycerides 102, Cholesterol 144, LDL Cholesterol Direct 98, HDL Cholesterol 29 Vital Signs Temp Pulse Resp BP 10/09/18 07:10 98.1 F 100 H 20 105/70 The patient failed the outpatient lower level of care: Yes Current Medications: Active Medications Generic Name Dose Route Start Last Admin Trade Name Freq PRN Reason Stop Dose Admin Bupropion HCl 75 mg 10/09/18 10:00 Wellbutrin PO DAILY TITI Zaleplon 5 mg 10/09/18 09:48 Sonata PO HS PRN Insomnia Present on Admission - Present on Admission Any Indicators Present on Admission: No History of DVT/PE: No History of Uncontrolled Diabetes: No Urinary Catheter: No Decubitus Ulcer Present: No Review of Systems - Review of Systems Systems not reviewed;Unavailable: Acuity of Condition - Constitutional Constitutional: As Per HPI - EENT Eyes: As Per HPI Ears: As Per HPI Nose/Mouth/Throat: As Per HPI - Breasts Breasts: As Per HPI - Cardiovascular Cardiovascular: As Per HPI - Respiratory Respiratory: As Per HPI - Gastrointestinal Gastrointestinal: As Per HPI - Genitourinary Genitourinary: As Per HPI - Reproductive: Female Reproductive:Female: As Per HPI - Menstruation Menstruation: As Per HPI - Musculoskeletal Musculoskeletal: As Per HPI - Integumentary Integumentary: As Per HPI - Neurological Neurological: As Per HPI - Psychiatric Psychiatric: As Per HPI - Endocrine Endocrine: As Per HPI - Hematologic/Lymphatic Hematologic: As Per HPI Past Patient History - Past Psychiatric History Previous Treatment History: None Prior Professional Help: see HPI Prior Psychiatric Treatment: see HPI At what hospital: see HPI Duration: see HPI Nature of Treatment: see HPI Explanation of prior treatment: see HPI - PSYCHIATRIC Hx Psychophysiologic Disorder: No Hx Depression: Yes Hx Substance Use: No - Infectious Disease Hx of Infectious Diseases: None - CARDIAC Hx Cardiac Disorders: No - PULMONARY Hx Respiratory Disorders: No - NEUROLOGICAL Hx Neurological Disorder: No - HEENT Hx HEENT Problems: No - HEMATOLOGICAL/ONCOLOGICAL Hx Blood Disorders: No - INTEGUMENTARY Hx Dermatological Problems: No - MUSCULOSKELETAL/RHEUMATOLOGICAL Hx Falls: No - GASTROINTESTINAL Hx Clostridium Difficile: No - SURGICAL HISTORY Hx Surgeries: No - ANESTHESIA Hx Anesthesia: No Hx Anesthesia Reactions: No Hx Malignant Hyperthermia: No - Medical/Surgical History Reviewed & confirmed: by al Meds Allergies/Adverse Reactions: Allergies Allergy/AdvReac Type Severity Reaction Status Date / Time No Known Allergies Allergy Verified 10/09/18 05:37 Mental Status Examination - Personal Presentation Personal Presentation: Looks stated age - Affect Affect: Flat (and tearful) - Motor Activity Motor Activity: Calm - Reliability in Providing Information Reliability in Providing Information: Fair - Speech Speech: Organized - Mood Mood: Depressed, Anxious - Formal Thought Process Formal Thought Process: Other (appeared guarded) - Obsessions/Compulsions Obsessions: No Compulsions: No - Cognitive Functions Orientation: Person, Place, Situation Sensorium: Alert Attention/Concentration: Easily distracted Estimate of Intelligence: Average Judgement: Imparied, as evidence by: Poor judgement, Imparied, as evidence by: Lack of insight into illness - Risk Risk: Suicidal, Self-mutilation, Diminished functioning - Strength & Assets Inventory Strength & Assets Inventory: Other (family involvement, good physicial health, no drugs, no psychosis) - Limitations Limitations: Other (poor insight, poor judgment) Psychiatric Physical Exam - Physical Exam Reviewed and confirmed: Emergency Department Physical Exam Results - Vital Signs Recent Vital Signs: Last Vital Signs Temp 98.1 F 10/09/18 07:10 Pulse 100 H 10/09/18 07:10 Resp 20 10/09/18 07:10 BP 105/70 10/09/18 07:10 Pulse Ox - Labs Labs: Laboratory Results - last 24 hr 10/09/18 10/09/18 07:30 07:30 Hemoglobin A1c 6.0 Triglycerides 102 Cholesterol 144 LDL Cholesterol Direct 98 HDL Cholesterol 29 - EKG Data EKG Interpreted by: ER Physician DSM Plan - DSM 5 DSM 5 Diagnosis: mdd r/o adjustment d/o with depressed mood r/o impulse control d/o - Recommended/Plan of Treatment Treatment Recommendations and Plan of Treatment: Milieu/structure/supportive therapy SW consultation for discharge plan and social issues Med management wellbutrin 75mg po daily sonata as needed for insomnia Family involvement Follow up on labs Will monitor closely Pt was educated about risk/benefits and alternatives of medications, coping strategies (safety plan, suicide prevention), relapse prevention, importance of follow up with psychiatrist and therapist, stay away from drugs/alcohol/smoking Projected ELOS: 7days Prognosis: fair Discharge Plan and Discharge Criteria: when pt will pose no imminent danger to self or others - Tobacco Cessation Tobacco Use Status for the last 30 days: Non User Tobacco Use Treatment Practical Counseling Provided: No Reason for not providing: pt denied using drugs, denied alcohol consumption Tobacco Use Treatment FDA-Approved Cessation Medication Provided: No - Alcohol or Substance Abuse Does the patient have an Alcohol or Substance Abuse Disorder: No Initial Psych Certification - Initial Certification I certify that the inpatient psychiatric facility admission was medically necessary for either: Treatment which could reasonbly be expected to improve pt's condition I estimate of hospitalization is necessary for proper treatment of the patient: 7 Unit of Time: Days My plans for post-hospital care for this patient are: DTP f/u with psychiatrist and therapist
--- NOTE | 2018-10-10 08:45 | PCM.PYCHPN ---
Psychiatric Progress Note - Psychiatric Progress Note Patient seen today, length of contact: 25 min Problems Identified/Issues Discussed: I reviewed assessment and recent notes. I meet with patient at bedside. Grooming is fair and patient is quiet and semi-cooperative with questioning. Although patient signed herself into our unit on a voluntary basis, she is not participating in treatment. She has refused to take medications because she doesn't believe she needs them. She continues to express this opinion this morning. I review patient's stressors and coping behaviors, I remind her that overdosing on medications {and requiring ICU involvement} isn't a typical response for most functioning individuals. I ask her to reconsider her decision not to follow our recommendations. Staff note that patient is disengaged and seclusive on the unit. She readily admits that she signed in voluntarily to avoid commitment to [facility]. There were no major behavioral issues overnight. Diagnostic Results: mdd r/o adjustment d/o with depressed mood r/o impulse control d/o Medication Change: No (encouraged patient to comply) Medical Record Reviewed: Yes Mental Status Examination - Cognitive Function Orientation: Person, Place, Situation Attention: WNL Concentration: Poor Association: WNL Fund of Knowledge: WNL - Mood Mood: Depressed, Anxious - Affect Affect: Constricted, Flat (and tearful) - Speech Speech: Soft - Formal Thought Process Formal Thought Process: No Impairment, Other (appeared guarded) - Suicidal Ideation Suicidal Ideation: No - Homicidal Ideation Homicidal Ideation: No Goal/Treatment Plan - Goal/Treatment Plan Progress Toward Problem(s) and Goals/Treatment Plan: * c/w current tx and plan * I review stressors and coping behaviors with patient on 10/10/18, I remind her that overdosing on medications {and requiring ICU involvement} isn't a typical response for most functioning individuals. I ask her to reconsider her decision not to follow our recommendations. If patient continues to refuse to participate in treatment, will request another screening. * Vitals reviewed and noted below: 10/09/18 10/09/18 07:10 16:00 Temperature 98.1 F Pulse Rate 100 H 108 H Respiratory 20 Rate Blood Pressure 105/70 99/66 L * No new weekend lab results noted thus far
--- NOTE | 2018-10-11 09:08 | PCM.PYCHPN ---
Psychiatric Progress Note - Psychiatric Progress Note Patient seen today, length of contact: 25 min Problems Identified/Issues Discussed: I reviewed recent notes and meet with patient at bedside again. She is oriented x3 with good grooming. Staff notes indicate that patient has been in good con trol and opening up more to staff members. Affect is brighter. Though she still refuses to take any medications she has consistently expressed remorse about her overdose, agreeing it was a mistake. Patient has been more visible and making an effort to attend group and engage with milieu and staff. She doesn't appear hopeless or despondent during my visits though our interactions are superficial. Patient denies wishes or SI. She is coherent without any evidence of perceptual disturbance. She denies any new discomfort or pain. There were no major behavioral issues over the weekend. Patient reports she is looking forward to going home. Diagnostic Results: mdd r/o adjustment d/o with depressed mood r/o impulse control d/o Medication Change: No (encouraged patient to comply) Medical Record Reviewed: Yes Mental Status Examination - Cognitive Function Orientation: Person, Place, Situation Attention: WNL Concentration: Poor Association: WNL Fund of Knowledge: WNL - Mood Mood: Depressed (better), Anxious - Affect Affect: Constricted (brighter), Flat (and tearful) - Speech Speech: Soft - Formal Thought Process Formal Thought Process: No Impairment, Other (appeared guarded) - Suicidal Ideation Suicidal Ideation: No - Homicidal Ideation Homicidal Ideation: No Goal/Treatment Plan - Goal/Treatment Plan Progress Toward Problem(s) and Goals/Treatment Plan: * c/w current tx and plan * I review stressors and coping behaviors with patient on 10/10/18, I remind her that overdosing on medications {and requiring ICU involvement} isn't a typical response for most functioning individuals. I ask her to reconsider her decision not to follow our medication recommendations. She continues to refuse to take Wellbutrin. * If patient refuses all treatment on the unit, will consider another screening. However at this time patient is engaging with staff and milieu as well as attending groups. * Vitals reviewed and noted below: Selected Entries 10/10/18 10/10/18 06:46 15:56 Temperature 98.2 F Pulse Rate 90 108 H Respiratory 18 Rate Blood Pressure 119/78 114/76 * No new weekend lab results noted
[2018-10-12 07:37] VITALS: TEMP 97.6
--- NOTE | 2018-10-12 16:23 | PCM.PYCHPN ---
Psychiatric Progress Note - Psychiatric Progress Note Patient seen today, length of contact: 25 min Patient Chief Complaint: "I think it was a mistake.." Problems Identified/Issues Discussed: Coping strategies, previous history, aftercare plan, family meeting. Suicide prevention, importance to follow-up with outpatient provider. Medical Problems: Patient status post overdose. Diagnostic Results: Lab Results 10/09/18 07:30: Hemoglobin A1c 6.0 10/09/18 07:30: Triglycerides 102, Cholesterol 144, LDL Cholesterol Direct 98, HDL Cholesterol 29 Vital Signs Temp Pulse Resp BP 10/12/18 07:35 97.6 F 71 20 101/66 10/11/18 16:30 102 H 108/73 10/11/18 07:25 97.9 F 44 L 20 100/51 L 10/10/18 15:56 108 H 114/76 10/10/18 06:46 98.2 F 90 18 119/78 10/09/18 16:00 108 H 99/66 L 10/09/18 07:10 98.1 F 100 H 20 105/70 DSM 5 Symptoms Update: Patient was seen and examined today at the treatment team meeting with medical student. Over the weekend patient was refusing to take any medications, denied being depressed, seems to be remorseful for her impulsive act of overdose. Patient reported that she had a good night sleep, denied any perceptual disturbances. As per staff patient supportive, comes and visited patient on a daily basis. Prolonged conversation took place today, patient reported that that he met one lady from [facility] and she became friend with her for the past three years, over the past three years that lady was asking for financial help from the pt and all together pt gave 8. last week patient asked her friend to pay her back, but her friend refused saying that she will pay her little at the time, later on she refused to pay pt, "she even said that I never gave her any money, I was deeply hurt, she was like a sister to me because I don't have my family in here." pt said that they met October 02, patient reported that she was very upset, next day she had to shift, after she came back home she was not able to sleep, after her family left the buddhism, patient wanted to sleep, and overdose on all medications, patient said that she wrote a letter to her family for dressing, patient said "it was a mistake, and very remorseful, it was stupid" patient said that she will not do that again, patient said that she misses her family and her child, patient reported that her is supportive. This speech writer will invite patient for family meeting tomorrow. Patient said that she does not want to take any medications because she does not feel depressed, patient reported that she has fair sleep. As per nursing staff, patient is not agitated, not aggressive, participating cancel in in unit activities. Diagnostic Results: mdd r/o adjustment d/o with depressed mood r/o impulse control d/o Medication Change: No (encouraged patient to comply) Medical Record Reviewed: Yes Consults ordered or reviewed: Patient was seen by medical team, cleared on the medical side. Mental Status Examination - Cognitive Function Orientation: Person, Place, Situation Memory: Intact Attention: WNL Concentration: Poor Association: WNL Fund of Knowledge: WNL - Mood Mood: Depressed (better), Anxious (I feel much better) - Affect Affect: Constricted (brighter), Flat (and tearful) - Speech Speech: Soft - Formal Thought Process Formal Thought Process: No Impairment, Other (appeared guarded) - Suicidal Ideation Suicidal Ideation: No - Homicidal Ideation Homicidal Ideation: No Goal/Treatment Plan - Goal/Treatment Plan Need for Continued Stay: Remain at risks for inpatient hospitalization, Severe depression anxiety, Discharge may exacerbated symptoms, Severe functional impairment Progress Toward Problem(s) and Goals/Treatment Plan: Milieu/structure/supportive therapy SW consultation for discharge plan and social issues Med management wellbutrin 75mg po daily sonata as needed for insomnia Family involvement Follow up on labs Will monitor closely Pt was educated about risk/benefits and alternatives of medications, coping strategies (safety plan, suicide prevention), relapse prevention, importance of follow up with psychiatrist and therapist, stay away from drugs/alcohol/smoking Family meeting requested for tomorroctober Estimated Date of D/C: 10/13/18
[2018-10-12] MEDS ORDERED: Magnesium Hydroxide Susp 30 ml UD PO PRN (17:40)
[2018-10-12] MEDS ORDERED: Alum-Mag Hydrox-Simethicone Susp (30 mL) PO PRN (17:40)
[2018-10-13 06:59] VITALS: BP 129/77; PULSE 84; RESP 18
--- NOTE | 2018-10-13 13:13 | PCM.BM ---
<Janet Steward - Last Filed: 10/13/18 13:12> Treatment Plan Problems - Problems identified on initial assessmt suicidal ideation Date Initiated: 10/08/18 Time Initiated: 23:42 (d/c home ) Date resolved: 10/13/18 Assessment reference: NA Status: Active ineffective coping Date Initiated: 10/08/18 Time Initiated: 23:43 Date resolved: 10/13/18 Assessment reference: NA Status: Active fellings of worthlessness Date Initiated: 10/08/18 Time Initiated: 23:43 Date resolved: 10/13/18 Assessment reference: NA Status: Active Treatment assets and liabiliti Patient Assests: adapts well, cooperative, educated, motivated, ADL independent, physically healthy, cognitively intact Patient Liabilities: relationship conflicts - Milieu Protocol Maintain good personal hygiene: daily Encourage regular showers, daily Remind patient to perform daily oral care Conduct patient checks and document Observation sheet: Q15 minutes Maintain personal safety: every shift Educate patient to report safety concerns to staff, every shift Monitor environment for contraband/sharps Medication safety: Monitor for expected outcome, potential side effects: every shift, Assess barriers to learning: every shift, Assess readiness for medication education: every shift Milieu Narrative: Milieu/structure/supportive therapy SW consultation for discharge plan and social issues Med management wellbutrin 75mg po daily sonata as needed for insomnia Family involvement Follow up on labs Will monitor closely Pt was educated about risk/benefits and alternatives of medications, coping strategies (safety plan, suicide prevention), relapse prevention, importance of follow up with psychiatrist and therapist, stay away from drugs/alcohol/smoking Family meeting requested for tomorroctober Family Contact Family involvement: Family/SO is involved Family contact: Patient agrees to contact Discharge/Continuing Care - Education Needs Education Needs: Patient Medication, Patient Diagnosis/Disease Process, Patient Coping Skills, Patient Health Practices/Safety, Patient Aftercare Safety Plan - Discharge Discharge Criteria: Tolerates medication w/o severe side effects, Free of Suicidal thoughts, Normal sleep pattern, Reduction of target symptoms Discharge to:: Home - Treatment Team Participation Patient/Family/SO Statement: Milieu/structure/supportive therapy SW consultation for discharge plan and social issues Med management wellbutrin 75mg po daily sonata as needed for insomnia Family involvement Follow up on labs Will monitor closely Pt was educated about risk/benefits and alternatives of medications, coping strategies (safety plan, suicide prevention), relapse prevention, importance of follow up with psychiatrist and therapist, stay away from drugs/alcohol/smoking Family meeting requested for tomorrow October Treatment Plan Review - Problem suicidal ideation Time Initiated: 23:42 ineffective coping Time Initiated: 23:43 fellings of worthlessness Time Initiated: 23:43 <Mariana Murillo - Last Filed: 10/13/18 16:05> - Diagnosis (1) MDD (major depressive disorder) Status: Acute Interventions: 10/13/18 16:04 Overall patient improved Patient refused to be on any medications Patient does not meet the criteria for [facility] screening process Family meeting took place Patient has been to is willing to accept patient back home Patient will be discharged AGAINST MEDICAL ADVICE
--- NOTE | 2018-10-13 16:15 | PCM.PYCHDC ---
Mental Status Examination - Mental Status Examination Orientation: Person, Place, Situation, Time Memory: Intact Mood: Neutral Affect: Constricted (But reactive and mood congruent) Speech: Appropriate Attention: Poor (Improving) Concentration: Poor (Improving) Association: WNL Fund of Knowledge: WNL Formal Thought Process: No Impairment Description of patient's judgement and insight: Patient seems to have improved insight into her symptoms impulsivity, at the same time patient refused to be on any psychotropic medications. No agitation, no aggression, patient was pleasant and cooperative. Psychotic Thoughts and Behaviors: Patient denied seeing things, denied paranoid ideations, patient does not present to be psychotic. Suicidal Ideation: No Current Homicidal Ideation?: No Plan: Patient adamantly denied thoughts of harming herself or others. Discharge Plan - Discharge Note Reason for Hospitalization: pt was transferred from the medical site s/p intentional overdose on meds, sp suicidal attempt. Please see admission note for more detailed information. Psychiatric History (includes Medical, Family, Personal Hx): see HPI Laboratory Data: Lab Results 10/09/18 07:30: Hemoglobin A1c 6.0 10/09/18 07:30: Triglycerides 102, Cholesterol 144, LDL Cholesterol Direct 98, HDL Cholesterol 29 Vital Signs Temp Pulse Resp BP 10/13/18 06:59 97.6 F 84 18 129/77 10/12/18 16:00 93 H 113/71 10/12/18 07:35 97.6 F 71 20 101/66 10/11/18 16:30 102 H 108/73 10/11/18 07:25 97.9 F 44 L 20 100/51 L 10/10/18 15:56 108 H 114/76 10/10/18 06:46 98.2 F 90 18 119/78 10/09/18 16:00 108 H 99/66 L 10/09/18 07:10 98.1 F 100 H 20 105/70 Consultations:: List each consultation separately and include: 1. Reason for request. 2. Findings. 3. Follow-up Consultations: Patient was seen by medical team, cleared on the medical side. Summary of Hospital Course include:: 1. Description of specific treatment plan utilized for patients during their course of treatmen. 2. Summarize the time- course for resolution of acute symptoms and/or regressed behaviors. 3. Describe issues identified and worked on during hospitalization. 4. Describe medication utilized. 5. Describe medical problems identified and treated. 6. Reassessment of suicide risk Summary of Hospital Course: Patient is 27 y/o female with not known previous psychiatric history, patient denied ever being admitted to the psychiatric inpatient unit, patient denied any psychiatric history, pt was admitted to ICU status post intentional overdose on multiple medications (Benadryl, Levceterizine, Montelukast, Augmentin, Prednisone), was stabilized, downgraded to the medical site, on the medical site pt refused to sign herself to the psychiatric inpatient unit, was screened by [facility], was found to be committable, but patient changed her mind, willing to be admitted to the psychiatric inpatient unit and complete the treatment under voluntary status. Despite the fact that patient went to get treatment, patient was refusing to take any medications, at the same time this is patient right to take medication or not. This life underwriter observed patient for the past 4 days, patient presented much better, there is no psychosis, no agitation, this life underwriter invited patient for family meeting today October 13, 2018. Patient, as well as secondary social studies teacher, medical student, this life underwriter participated. Patient reported that patient presented much better, patient is willing to accept patient back home, patient has self contracted for safety, reported that she learned a lot from this admission, patient wants to go back home to her son as well as patient wants to go back to work, patient and her were willing to follow-up with outpatient clinic. Patient seems to be supportive, he assured treatment team that he will take patient and his son for magnification, and contracted for safety for the patient. As per staff report patient still guarded, but more visible in the unit, treatment team feels that patient pose no imminent danger to self or others. At this point patient does not meet the criteria for screening for involuntary commitment, will be discharged AGAINST MEDICAL ADVICE. Overall patient presented well, has good appetite and sleep, no signs of psychosis, patient was more forthcoming with information about her suicidal act, patient seems to be sincerely remorseful. At the time of the discharge patient pose no imminent danger to self or others, will be following up at [facility] with , information about follow up appointment, time and address provided to the pt, (see SW note for more detailed information). It is a patient responsibility to follow up with outpatient clinic, PMD as well as specialists In case patient will need to obtain results of studies pending at discharge, patient was provided with contact information of Psychiatric Inpatient unit [phone] as well as Medical Record Department [phone], as well as [facility] team [phone]. Patient denied using drugs, denied alcohol consumption, denied smoking cigarettes pt was provided with prescriptions see medication reconciliation form Pt was educated about safety plan in case of worsening of symptoms or in case of suicidal or homicidal ideation call 911 or go to the nearest ER, also was educated to take meds as prescribed and stay away from drugs, pt verbalized understanding. Discharge took more than 45 minutes of this life underwriter time In regard to both patient and friend who refused to pay patient back, patient said that she does not have any increased feelings, she is upset but denies any thoughts of harming her or others. Lab Results 10/09/18 07:30: Hemoglobin A1c 6.0 10/09/18 07:30: Triglycerides 102, Cholesterol 144, LDL Cholesterol Direct 98, HDL Cholesterol 29 Vital Signs Temp Pulse Resp BP 10/09/18 07:10 98.1 F 100 H 20 105/70 - Diagnosis (1) MDD (major depressive disorder) Status: Acute - Final Diagnosis (DSM 5) Condition upon Discharge: GOOD Disposition: AGAINST MEDICAL ADVICE Follow-up Treatment Plan: [facility] outpatient program - Tobacco Cessation Tobacco Use Status for the last 30 days: Non User Tobacco Use Treatment Practical Counseling Provided: No Tobacco Use Treatment FDA-Approved Cessation Medication Provided: No Smoking Cessation Prescription was given: No If no, reason for not providing: Patient does not have history of smoking - Alcohol or Substance Abuse Does the patient have an Alcohol or Substance Abuse Disorder: No If no,reason for not providing: Patient does not have history of alcohol consumption or using drugs - Antipsychotic Medications Pt discharged on 2 or more routine antipsychotic medications: No
== END 2018-10-13 13:21 | disposition left against medical advice (07) | DRG 881 ==
LOC: PSYC 16:58
PROVIDERS: ADMIT Psychiatry & Neurology Psychiatry; ATTEND Psychiatry & Neurology Psychiatry
DX: F32.9 Major depressive disorder, single episode, unspecified (principal); R56.9 Unspecified convulsions; Z91.5 Personal history of self-harm